=== PATIENT | female | born 1940 | race Caucasian/White ===

== ENCOUNTER → 2017-09-09 15:10 | Outpatient (CLI) | payer MEDICARE, OTHER, SELFPAY ==
--- NOTE | 2017-09-09 15:13 | RAD_ITS ---
STUDY: X-RAY - LEFT KNEE REASON FOR EXAM: Female, 76 years old. Left knee pain. TECHNIQUE: 3 view(s) of the knee. COMPARISON: None. FINDINGS: Normal visualized distal femur. Normal visualized proximal tibia and fibula. Normal proximal tibiofibular articulation. There is no acute fracture, dislocation or destructive osseous pathology. There is mild degenerative arthrosis of the medial femorotibial compartment. Normal lateral femorotibial compartment. There is mild degenerative arthrosis of the patellofemoral articulation. There is no demonstrated joint effusion. The soft tissue structures are unremarkable. RAD/Knee 3 Views IMPRESSION: Mild arthrosis of the left knee. Electronically Signed: Martir Solis DO at 18:52 EST Tel [phone], Service support ,
== END ==
PROVIDERS: Family Provider Family Medicine; PCP Family Medicine; Visit Provider Family Medicine
DX: M79.605 Pain in left leg (principal)
CPT/HCPCS: 73562

== ENCOUNTER → 2017-09-17 12:19 | Outpatient (CLI) | payer MEDICARE, OTHER, SELFPAY ==
--- NOTE | 2017-09-17 12:36 | MRI_ITS ---
STUDY: MRI LUMBAR SPINE WITHOUT CONTRAST REASON FOR EXAM: Female, 76 years old. spinal stenosis TECHNIQUE: Standardized fat and water weighted pulse sequences were obtained in the sagittal and axial planes. COMPARISON: None FINDINGS: Normal lumbar lordosis. Normal conus medullaris that terminates at the L1/L2. There is multi-level degenerative disc disease with multilevel disc desiccation and disc space narrowing. Evaluation of the individual levels is as follows. T12-L1: Sagittal only. There is a mild disc bulge without significant central canal or foraminal stenosis. L1-2: There is a moderate disc space narrowing and endplate spondylosis. There is a mild disc bulge asymmetric to the left with moderate left foraminal stenosis. There is bilateral facet hypertrophy with mild central canal stenosis. There is no significant right foraminal stenosis. L2-3: There is a moderate space narrowing and endplate spondylosis. There is a moderate disc bulge and facet hypertrophy with mild central canal stenosis. There is mild bilateral foraminal stenosis. L3-4: There is moderate disc space narrowing and endplate spondylosis. There is a moderate disc osteophyte complex asymmetric to the right with moderate right foraminal stenosis. There is facet hypertrophy without significant central canal or left foraminal stenosis. L4-5: There is moderate disc space narrowing and endplate spondylosis. There is a moderate disc osteophyte complex and facet arthropathy with mild central canal stenosis. There is moderate bilateral foraminal stenosis. L5-S1: There is moderate disc space narrowing and endplate spondylosis with Modic type changes. There is a moderate disc bulge with central inferiorly directed extrusion with mild central canal stenosis. There is severe bilateral foraminal stenosis. There is mild bilateral facet arthropathy. Normal visualized sacral ala. Normal visualized paraspinous soft tissue structures. MRI/Spine Lumbar (Routine) IMPRESSION: L1/L2: Moderate left foraminal stenosis. L3/L4: Moderate right foraminal. L4/L5: Moderate bilateral foraminal stenosis. L5/S1: Central extrusion with mild central canal stenosis. Severe bilateral foraminal stenosis. Electronically Signed: Juan Perez MD at 13:18 EST Tel , Service support ,
== END ==
PROVIDERS: Family Provider Family Medicine; PCP Family Medicine; Visit Provider Family Medicine
DX: M48.00 Spinal stenosis, site unspecified (principal)
CPT/HCPCS: 72148

== ENCOUNTER → 2017-12-30 10:22 | Outpatient (CLI) | payer MEDICARE, OTHER, SELFPAY ==
--- NOTE | 2017-12-30 10:27 | RAD_ITS ---
STUDY: X-RAY - LUMBAR SPINE REASON FOR EXAM: Female, 77 years old. Low back pain TECHNIQUE: 4 view(s) of the lumbar spine were obtained with flexion and extension. COMPARISON: 06/24/2017 FINDINGS: Patient has developed mild dextroconvex scoliosis of the thoracolumbar spine. Normal lordosis and alignment. No compression fractures or acute abnormalities. Moderate to severe multilevel degenerative disc disease similar to prior exam. Normal range of motion with no subluxations. There is atherosclerotic calcification of the abdominal aorta without a demonstrated aneurysm. RAD/L/S Spine Min 4 Views IMPRESSION: Multilevel degenerative disc disease. Mild scoliosis has developed since previous exam. No acute abnormality. Electronically Signed: Lawrence Coffey MD at 17:17 EDT , Service support ,
== END ==
PROVIDERS: Family Provider Family Medicine; PCP Family Medicine; Visit Provider Orthopaedic Surgery
DX: M54.9 Dorsalgia, unspecified (principal)
CPT/HCPCS: 72110

== ENCOUNTER → 2018-05-22 11:24 | Outpatient (CLI) | payer MEDICARE, OTHER, SELFPAY ==
[2018-05-22 14:03] LABS: Absolute Lymphocyte Count 1.12 X10^3/ul (0.83-4.51); Absolute Neutrophil Count 3.5 X10^3/uL (2.0-7.7); Basophil# 0.02 X10^3/uL; Basophil% 0.3 % (0-1); Eosinophils% 11.6 % (0-5); Hematocrit 39.2 % (37-47); Hemoglobin 12.5 g/dl (12.0-15.0); Lymphocyte # 1.12 X10^3/ul (4.0); Lymphocyte % 18.5 % (19-41); Mean Corp Hgb Conc 31.9 g/gl (32-36); Mean Corpuscular Hgb 29.2 pg (27.0-32.0); Mean Corpuscular Volume 91.6 fL (81-99); Mean Platelet Vol. 10.3 fl (6.2-12.0); Monocyte% 11.6 % (0-10); Neutrophil # 3.49 X10^3/uL (2.7-7.7); Neutrophil % 57.8 % (47-70); Platelet Count 373 K/mm3 (150-450); RBC Distribution Width CV 14.2 % (11.6-14.6); RBC Distribution Width SD 46.4 fl (35.1-43.9); Red Blood Count 4.28 M/mm3 (4.2-5.4)
[2018-05-22 14:08] LABS: POSITIVE COUNT NO; POSITIVE DIFFERENTIAL NO; POSITIVE MORPHOLOGY NO
[2018-05-22 14:32] LABS: ALB/GLOB Ratio 0.8 RATIO (0.9-2.4); AST(SGOT) 17 U/L (15-37); Alanine Aminotransfer ALT/SGPT 27 U/L (13-56); Albumin, Serum 3.7 g/dL (3.2-5.0); Alkaline Phosphatase 95 U/L (45-117); Anion Gap 9 (5-15); BUN 8 mg/dL (7-18); BUN/Creat Ratio 10.1 RATIO (10-20); Calcium,Total 9.3 mg/dL (8.5-10.1); Chloride 103 mmol/L (98-107); Creatinine, Serum 0.79 mg/dL (0.55-1.02); EST Glomerular Filtration Rate 75 mL/min (>60); Est Glom Filt Rate - Afr Amer 90 mL/min (>60); Globulin 4.7 g/dL (2.2-4.2); Glucose 78 mg/dL (74-106); Potassium 4.1 mmol/L (3.5-5.1); Protein, Total 8.4 g/dL (6.4-8.2); Sodium Level 139 mmol/L (136-145); Thyroid Stim Hormone (TSH) 0.67 uIU/mL (0.358-3.74)
== END ==
PROVIDERS: Family Provider Family Medicine; PCP Family Medicine; Visit Provider Family Medicine
DX: R53.81 Other malaise (principal)
CPT/HCPCS: 36415; 80053; 84443; 85025

== ENCOUNTER 2018-11-10 10:30 | Outpatient (RCR) | payer MEDICARE, OTHER, SELFPAY ==
--- NOTE | 2018-09-29 12:48 | HP.PTEVAL_ITS ---
Patient's Visit Information JUANITA CHAN is a 77 year old F referred to Physical Therapy by SAMANTHA ALBRECHT with a diagnosis of Spinal stenosis s/p foraminotomy.. Date of Evaluation: 09/29/18 Physical Therapist: Misael Mccullough, DPT, OCS, CSCS - Visit Plan Frequency: 1x/Week Duration: 4-6 Weeks Plan: weekly x 4-6(pt choice) for progression of HEP...next session review old exercises patient will bring in and add hip strength, then core strength adn shoulder ROM and postural strength to tolerance. Pt motivated to complete ex I at home as able vs in clinic therapy. - Subjective Findings: Due to LBP and leg pain and hard to stand, had Low back surgery. She was not able to stadn long enough to do ADLS. Lumbar foraminotomies 3 weeks ago. has nt' done any exercises in 6 months. Since surgery, pain in L leg is gone. Still has some LBP and hip B. Pain is 7/10 mostly constant. Walkign makes it worse. legs feel very weak. No numbness or tingling lately. No ex and no brace. Every day gets better. Walks long driveway to mail box daily and it was hard to get back up driveway at first but better lately. Sleeping OK most nights which is normal for her over the last year or so. Basic ADLs are OK for dressing adn cooking, cleaning is still difficult, hard to sweep living room without a break. Fatiuges easily. Employed. Hobbies include remodilling house and gardening. Not doing those currently. Enjoys shopping with sisters when healthy . Did a little last week. All this started over a year ago on a shopping trip. Therapy helped at the time but didn't take the pain away. - Pain LBP Pain Intensity (Out of 10): 7 Pain Intensity Range: 5, 9 - Objective Walks I slightly hunched over forward. Transfers I slowly. Steps are reciprocala nd safe with one rail, L leg slightly weaker vs. R. Incision is posterior adn dry, healed well and no signs of excessive redness, heat or swelling. mild scar tissue on top part of incision. reflexes LE 2/3 patella adn achilles. sensation LE WNL to gross light touch. strength LE symmetircal and ankles 4- adn knees 4 adn hips 3+ abductiona dn extension, 4- flexion. piriformis and quads mod tight B, HS normal.Gastroc mod tight. - Goals Goal 1:: Pt feel 75% back to normal activitiy Goal Time Frame: 4-6 Weeks Goal 2:: Pt I in appropriate HEP to minimize future problems Goal Time Frame: 4-6 Weeks Goal 3:: Pt show 4/5 hip abduction, core adn extensor strength to walk further and complete sweeping without needing a break. Goal Time Frame: 4-6 Weeks Goal 4:: <25% disability on LB oswestry Goal Time Frame: 4-6 Weeks - Rehabilitation Potential Physical Therapy Diagnosis: Spinal stenosis Rehabilitation Potential: Fair - Anticipated Interventions Patient/Client Instruction: Educate patient on: Condition, Plan of Care For the Purpose of:: To decrease pain, To increase ROM, To improve nutrient delivery to tissue, To increase tolerance to activity/condition/position Therapeutic Exercise to Include: Strength training, Flexibilty training, Gait and locomotor training, Passive ROM, Active ROM, Dynamic Lumbar Stabilization For the Purpose of:: To decrease pain, To increase ROM, To increase tolerance to activity/condition/position, To improve ability of physical actions for home/community/work/leisure Thank you for the opportunity to evaluate your patient. For Medicare and Medicare HMO plans, please review the plan of care and approve it. It will need to be FAXED BACK to us at [phone] for Medicare purposes. For Medicare only, by signing this I certify the plan of care. Please let me know if there are questions or concerns regarding this plan of care. Physician Signature: Date:
--- NOTE | 2018-10-20 12:29 | HP.PTREVAL ---
SAMANTHA ALBRECHT, It has been my pleasure to treat JUANITA CHAN over the last 4 visits for Spinal stenosis s/p foraminotomy.. Please see the progress note below for an update on the physical therapy plan of care! Subjective: Doing pretty good. Seeing improvement. Worked legs a bit much yesterday with workout and then picked up twigs. Feels pooped after workout. Has to split them into different time frames. Pain has not been bad. 3 aspirins in the last week due to pain. Sleep is OK. Hasn't walked much due to weather but will do that. Pain has been outside B hips at 4/10 to walk. To doctor in a year. Needs more time to do ex as she sees improvement every day. L ankle cans til lfeel tightish numby and has for the last year. Objective/Function: Good ROM L?S , slightly limited ext and flexion causes some lateral hip pain B. Tightness noticeable in B ITB. Incisions healed wlel with only slight scar tissue. No signs of redness heat or swelling. Pt walking well and moving well today with transfers. OVERALL DOING WELL ADN WILLC OTNINUE VIA HEP AND CALL IF PROBLEMS Plan Plan: F/U 3 WEEKS TO CHECK GOALS, OSWESTRY, ENSURE PROGRESS WITH ITB AND PROGRESS [id number], STACY E PLANKS) IF NEEDED ADN LIKELY D/C. PT TO CALL [RIOR IF WORSENS. Goals Goal 1:: Pt feel 75% back to normal activitiy Goal Time Frame: 4-6 Weeks Goal Progress: Goal Met Goal 2:: Pt I in appropriate HEP to minimize future problems Goal Time Frame: 4-6 Weeks Goal Progress: Goal Met Goal 3:: Pt show 4/5 hip abduction, core adn extensor strength to walk further and complete sweeping without needing a break. Goal Time Frame: 4-6 Weeks Goal 4:: <25% disability on LB oswestry Goal Time Frame: 4-6 Weeks Anticipated Interventions Patient/Client Instruction: Educate patient on: Condition, Plan of Care For the Purpose of:: To decrease pain, To increase ROM, To improve nutrient delivery to tissue, To increase tolerance to activity/condition/position Therapeutic Exercise to Include: Strength training, Flexibilty training, Gait and locomotor training, Passive ROM, Active ROM, Dynamic Lumbar Stabilization For the Purpose of:: To decrease pain, To increase ROM, To increase tolerance to activity/condition/position, To improve ability of physical actions for home/community/work/leisure Please do not hesitate to contact me at [phone] by phone or if you have questions or concerns regarding this new plan of care! Sincerely, Misael Mccullough, KUMART, OCS, CSCS
--- NOTE | 2019-01-28 16:18 | HP.PT.NRP ---
HP - Discharge Summary (1) - Patient Information JUANITA CHAN was seen in my office for initial evaluation on 09/29/18. The following Plan of Care was established for this patient: Initial Frequency: 1x/Week Initial Duration: 4-6 Weeks - Anticipated Interventions Patient/Client Instruction: Educate patient on: Condition, Plan of Care For the Purpose of:: To decrease pain, To increase ROM, To improve nutrient delivery to tissue, To increase tolerance to activity/condition/position Therapeutic Exercise to Include: Strength training, Flexibilty training, Gait and locomotor training, Passive ROM, Active ROM, Dynamic Lumbar Stabilization For the Purpose of:: To decrease pain, To increase ROM, To increase tolerance to activity/condition/position, To improve ability of physical actions for home/community/work/leisure This patient was last seen in our office 11/10/18. Pertinent comments regarding their Physical therapy will appear below: Pt seen for 5 visits of POC and was doing well with a minor setback at the end. She wished to continue at home and was to call if she did nto recover quickly. At this point it has been over almost two months and I will discotninue due to nonattendance. At this point I will be discontinuing this patient from physical therapy. I would be happy to see this patient again in the future if found appropriate by the physician. Thank you! Misael Mccullough, DPT, OCS, CSCS
== END 2018-11-10 19:00 | disposition home or self-care (01) ==
LOC: PT 10:30
PROVIDERS: Family Provider Family Medicine; PCP Family Medicine
DX: M48.061 Spinal stenosis, lumbar region without neurogenic claudication (principal); M54.17 Radiculopathy, lumbosacral region
CPT/HCPCS: 97110; 97162; 97530

== ENCOUNTER → 2019-05-12 14:35 | Outpatient (CLI) | payer MEDICARE, OTHER, SELFPAY ==
[2019-05-12 15:46] LABS: Absolute Lymphocyte Count 1.79 X10^3/uL (0.83-4.51); Absolute Neutrophil Count 4.2 X10^3/uL (2.0-7.7); Basophil# 0.03 X10^3/uL; Basophil% 0.4 % (0-1); Eosinophils% 2.8 % (0-5); Hematocrit 41.6 % (37-47); Lymphocyte # 1.79 X10^3/ul (4.0); Lymphocyte % 25.4 % (19-41); Mean Corp Hgb Conc 31.3 g/dL (32-36); Mean Corpuscular Hgb 28.9 pg (27.0-32.0); Mean Corpuscular Volume 92.4 fL (81-99); Mean Platelet Vol. 10.3 fl (6.2-12.0); Monocyte# 0.79 X10^3/uL; Monocyte% 11.2 % (0-10); NRBC Flagged by Analyzer 0 % (0-5); Neutrophil % 59.8 % (47-70); Platelet Count 301 K/mm3 (150-450); RBC Distribution Width CV 14.1 % (11.6-14.6)
[2019-05-12 15:58] LABS: Erythrocyte Sedimentation Rate 23 mm/hr (0-30)
[2019-05-12 16:15] LABS: CRP < 2.90 mg/L (0.0-3.0); Rheumatoid Factor < 10.0 IU/mL (<15); Uric Acid 3.4 mg/dL (2.6-6.0)
[2019-05-14 13:11] LABS: ANTINUCLEAR ANTIBODIES DIRECT Negative (Negative)
== END ==
PROVIDERS: Family Provider Family Medicine; PCP Family Medicine; Visit Provider Family Medicine
DX: M25.50 Pain in unspecified joint (principal)
CPT/HCPCS: 36415; 84550; 85025; 85652; 86038; 86140; 86431

== ENCOUNTER → 2020-02-17 14:38 | Outpatient (CLI) | payer MEDICARE, OTHER, SELFPAY ==
--- NOTE | 2020-02-17 14:43 | CT_ITS ---
STUDY: CT FACIAL BONES WITHOUT CONTRAST REASON FOR EXAM: Female, 79 years old. NASAL DRIP X 1 YEAR, KAYLEIGH JACKIE RADIATION DOSAGE (If Supplied By Facility): CTDIvol = ( 33.06 ) mGy, DLP = ( 854.51 ) mGycm TECHNIQUE: The patient was scanned in a multi detector CT scanner. Sagittal and coronal images were reconstructed. Individualized dose optimization techniques were used for this CT. COMPARISON: None. FINDINGS: Normal soft tissue structures. Normal orbital ramos and orbital contents. Normal nasal bones and anterior nasal spine. Normal facial bones. There is no demonstrated fracture. Normal visualized paranasal sinuses. CT/Sinus/Facial Bone IMPRESSION: Normal unenhanced CT of the facial bones. Electronically Signed: Cristhian Chen, at 15:02 EDT Tel , Service support ,
== END ==
PROVIDERS: PCP Family Medicine; Referring Provider Otolaryngology; Visit Provider Otolaryngology
DX: J32.9 Chronic sinusitis, unspecified (principal)
CPT/HCPCS: 70486

== ENCOUNTER 2021-06-06 17:18 | Emergency (ER) | payer MEDICARE, OTHER, SELFPAY ==
[2021-06-06 17:20] VITALS: BP 180/86; PULSE 92; RESP 18; TEMP 36.1; O2SAT 98; BMI 22.9
--- NOTE | 2021-06-06 17:28 | NURSING ---
NO OLD EKGS
--- NOTE | 2021-06-06 17:37 | CT_ITS ---
HISTORY: paresthesias TECHNIQUE: Multiple axial images were obtained of the brain without intravenous contrast. A radiation dose optimization technique was used for this scan. IV Contrast dosage and agent: None. COMPARISON: None FINDINGS: # of images incl. paperwork: [id number] PARANASAL SINUSES AND MASTOID AIR CELLS: Clear. INTRACRANIAL HEMORRHAGE: None. BRAIN PARENCHYMA: No CT evidence of stroke. No intracranial masses. There is preservation of the bunch/white matter interface. Posterior fossa structures are unremarkable. There is hypoattenuation of the periventricular white matter. Chronic involutional changes are noted. CSF SPACES: Appropriate for age. There is no hydrocephalus. MASS EFFECT: None. CALVARIUM: No acute fracture. CT/Brain/Head without Contrast IMPRESSION: Chronic involutional and white matter changes. No acute intracranial process. Individualized dose optimization techniques were used for this CT. at 1904 Reported and signed by: Slava Delatorre MD Electronically Signed: Slava Delatorre MD at 19:03 EDT Tel , Service support ,
--- NOTE | 2021-06-06 17:37 | EKG12_ITS ---
Test Reason : Blood Pressure : / mmHG Vent. Rate : 077 BPM Atrial Rate : 077 BPM P-R Int : 146 ms QRS Dur : 092 ms QT Int : 400 ms P-R-T Axes : 056 003 054 degrees QTc Int : 452 ms Normal sinus rhythm Nonspecific ST and T wave abnormality Abnormal ECG Confirmed by MARY ORTIZ, NABILA ([id number]), associate entertainment editor KOURTNEY JAMES ([id number]) on 06/08/2021 9:33:42 AM Referred By: ANAHI Confirmed By:NABILA HERNANDEZ MD
[2021-06-06 17:51] VITALS: BMI 22.9
[2021-06-06 17:57] VITALS: BP 180/96; PULSE 92; RESP 18; TEMP 36.1; O2SAT 98
[2021-06-06 17:59] VITALS: BP 124/93; PULSE 77; RESP 14; O2SAT 97
[2021-06-06 18:05] LABS: Bacteria 0 SEEN /hpf (None Seen); Mucous, Urine 0 SEEN /hpf (<or=2+); Red Blood Cells-Urine 0 SEEN /hpf (0-5)
--- NOTE | 2021-06-06 18:05 | RAD_ITS ---
STUDY: X-RAY CHEST REASON FOR EXAM: Female, 80 years old. Cough TECHNIQUE: Frontal view COMPARISON: None. FINDINGS: The lungs are clear and expanded. There is no demonstrated pleural abnormality. Normal size heart. Normal mediastinum and karuna. Normal visualized pulmonary arteries. Normal visualized aortic arch and descending thoracic aorta. Normal visualized thoracic spine. Normal visualized ribs, clavicles, and shoulders. There is no demonstrated abnormality of the visualized soft tissue structures of the upper abdomen. RAD/Chest 1 View (Portable) IMPRESSION: Normal x-ray examination of the chest. Electronically Signed: Uzair Rosen DO at 20:36 EDT Tel [phone], Service support ,
[2021-06-06 18:10] LABS: Absolute Lymphocyte Count 2.11 X10^3/uL (0.83-4.51); Basophil# 0.03 X10^3/uL; Basophil% 0.4 % (0-1); Eosinophil# 0.23 X10^3/uL; Eosinophils% 3.2 % (0-5); Hematocrit 39.6 % (37-47); Hemoglobin 12.6 g/dL (12.0-15.0); Lymphocyte # 2.11 X10^3/ul (0.83-4.51); Lymphocyte % 29.6 % (19-41); Mean Corp Hgb Conc 31.8 g/dL (32-36); Mean Corpuscular Hgb 28.8 pg (27.0-32.0); Mean Corpuscular Volume 90.6 fL (81-99); Mean Platelet Vol. 9.7 fl (6.2-12.0); Monocyte# 0.71 X10^3/uL; NRBC Flagged by Analyzer 0 % (0-5); Neutrophil # 4.02 X10^3/uL (2.7-7.7); Neutrophil % 56.4 % (47-70); Platelet Count 341 K/mm3 (150-450); RBC Distribution Width CV 14.3 % (11.6-14.6); RBC Distribution Width SD 47.9 fl (35.1-43.9); Red Blood Count 4.37 M/mm3 (4.2-5.4); White Blood Count 7.1 K/mm3 (4.4-11.0)
[2021-06-06 18:20] LABS: Color, Urine Yellow (Yellow); Glucose, Dipstick Normal (Normal); Ketone-Dipstick Negative (Negative); Leukocyte Esterase-Dipstick 25 /ul (Negative); Nitrite-Dipstick Negative (Negative); Occult Blood-Urine Negative /ul (Negative); Protein-Dipstick Negative (Negative); Urine Bilirubin Dipstick Negative (Negative); Urine Clarity Clear (Clear); Urine Urobilinogen Normal (Normal)
[2021-06-06 18:23] LABS: ALB/GLOB Ratio 0.9 RATIO (0.9-2.4); AST(SGOT) 15 U/L (15-37); Alanine Aminotransfer ALT/SGPT 23 U/L (13-56); Albumin, Serum 3.6 g/dL (3.2-5.0); Alkaline Phosphatase 92 U/L (45-117); Anion Gap 5 (5-15); BUN 18 mg/dL (7-18); BUN/Creat Ratio 18.9 RATIO (10-20); Calcium,Total 9.1 mg/dL (8.5-10.1); Chloride 104 mmol/L (98-107); Creatinine, Serum 0.95 mg/dL (0.55-1.02); EST Glomerular Filtration Rate 60 mL/min (>60); Est Glom Filt Rate - Afr Amer 73 mL/min (>60); Globulin 4.1 g/dL (2.2-4.2); Glucose 108 mg/dL (74-106); Magnesium 2.3 mg/dL (1.6-2.6); Potassium 4.2 mmol/L (3.5-5.1); Protein, Total 7.7 g/dL (6.4-8.2); Sodium Level 139 mmol/L (136-145); Troponin-I HS 9 pg/mL (3.0-54.0)
[2021-06-06 18:30] LABS: Squamous Epithelial Cells - UA 0-5 SEEN /hpf (5-10); White Blood Cells 0-5 SEEN /hpf (0-5)
--- NOTE | 2021-06-06 19:02 | ED.VIS.STROK ---
HPI History of Present Illness Chief Complaint: Neuro S/Sx Narrative Narrative: 80-year-old female presenting with numbness and tingling to the left side of her lip which started a couple of days ago. She now reports that she has had some tingling into the first 3 digits of her left hand and fingers. It started today. She also notes that she had some numbness around her left eye. She has not had a facial droop. She has not had slurred speech. She denies headache. She states that intermittently she feels lightheaded and has some blurry vision. She denies chest pain, shortness of breath. Patient has no history of head injury. She has no history of stroke and states she has no risk factors. She does report that she has had a cough for a couple of weeks and some rhinorrhea. She denies any fever. She has not been tested for COVID-19. PFSH PFSH Home Medications magnesium 200 mg tablet PO 11/19/17 [History Last Taken Unknown] vitamin B complex 1 tab PO QDAY 11/19/17 [History Last Taken Unknown] gabapentin 300 mg capsule 300 mg PO TID 12/30/17 [History Last Taken Unknown] Allergy/AdvReac Type Severity Reaction Status Date / Time meperidine [From Demerol] Allergy Unknown Verified 06/06/21 17:23 Family History Mother Cancer Father Cancer Sister Cancer Surgical History H/O: hysterectomy Social History Smoking Status: Current every day smoker tobacco type: cigarettes ROS ROS ED Constitutional Constitutional ED: Denies chills or fever(s) Eyes Eyes: Reports blurry vision bilateral ENT ENT ED: Reports rhinorrhea; Denies sore throat Cardiovascular Cardiovascular: Denies chest pain or palpitations Respiratory/Chest Respiratory/Chest: Reports cough; Denies dyspnea, dyspnea on exertion or sputum Gastrointestinal Gastrointestinal: Denies abdominal pain, nausea or vomiting Genitourinary Genitourinary ED: Denies dysuria or hematuria Musculoskeletal Musculoskeletal: Denies arthralgias, myalgias or neck pain Integumentary Denies Abrasions or rash Neurologic Neurologic: Reports paresthesias LUE and other Psychiatric Psychiatric: Denies anxiety or depression Endocrine Endocrinology: Denies polydipsia or polyuria EXAM Physical Exam Const Vital Signs: 06/06/21 17:20 06/06/21 17:57 06/06/21 17:59 Temperature 96.9 F L 96.9 F L Temperature Source Temporal Oral Pulse Rate 92 92 77 Pulse Rate [Lying] Pulse Rate [Sitting] Pulse Rate [Standing] Respiratory Rate 18 18 14 Blood Pressure 180/86 H 180/96 H 124/93 H Blood Pressure [Lying] Blood Pressure [Sitting] Blood Pressure [Standing] Blood Pressure Mean 117 124 103 Blood Pressure Mean [Lying] Blood Pressure Mean [Sitting] Blood Pressure Mean [Standing] Pulse Ox 98 98 97 Oxygen Delivery Method Room Air Room Air Room Air 06/06/21 19:11 06/06/21 20:01 06/06/21 20:06 Temperature Temperature Source Pulse Rate 79 81 Pulse Rate [Lying] 81 Pulse Rate [Sitting] 85 Pulse Rate [Standing] 97 Respiratory Rate 18 18 Blood Pressure 131/74 H 159/60 H Blood Pressure [Lying] 159/60 H Blood Pressure [Sitting] 160/86 H Blood Pressure [Standing] 149/84 H Blood Pressure Mean 93 93 Blood Pressure Mean [Lying] 93 Blood Pressure Mean [Sitting] 110 Blood Pressure Mean [Standing] 105 Pulse Ox 96 96 Oxygen Delivery Method Room Air Room Air Positive well nourished General Appearance ED: NAD HEENT Reports moist mucous membranes atraumatic Eyes PERRL and EOMs intact bilaterally Chest Wall inspection of chest normal and palpation of chest normal Resp normal respiratory effort Cardio Rate: regular rate Rhythm: regular rhythm GI normal to inspection, nondistended, normoactive bowel sounds Neuro oriented x3, CN's II-XII intact bilaterally and no sensory deficits noted Sensorium / Orientation: alert Speech: speech normal Motor Exam: strength 5/5 throughout Psych mental status grossly normal Skin General Skin Exam: Negative for jaundice Rashes: No rashes noted STROKE Vital Signs/Narrative: Vital Signs Pulse Pulse Pulse Pulse Resp BP BP 06/06/21 20:06 81 18 159/60 H 06/06/21 20:01 81 85 97 159/60 H 06/06/21 19:11 79 18 131/74 H BP BP Pulse Ox 06/06/21 20:06 96 06/06/21 20:01 160/86 H 149/84 H 06/06/21 19:11 96 MDM MDM MDM Narrative Medical decision making narrative: Patient presenting with paresthesias in the left side of her face around her left eye and around her left mouth as well as paresthesias into the first 3 digits of the left hand. Patient did just have a Covid vaccination last week and believes she may have some numbness and tingling in her arm secondary to this but she cannot explain why she has the tingling in her face. On examination she has equal symmetric sensation of her face and her hands. Her motor strength is 5/5. Her NIH stroke scale score is 0. She has no neurologic deficits at all that I can find. Given concern for her symptoms I did obtain lab work and imaging for possible stroke/TIA. Patient's blood work is all normal. Her urinalysis was negative for infection. EKG on my interpretation shows a normal sinus rhythm with a ventricular rate of 77 bpm without sign of ischemic change. Chest x-ray on my interpretation shows no acute cardiopulmonary process and the radiologist does agree. CT of the brain is interpreted by the radiologist shows no acute intracranial process. Not sure how to explain the patient's symptoms in her face and the first 3 digits of her left hand that she has a normal neurologic exam and there is no objective findings other than what she describes as numbness/tingling in these areas but with equal symmetric sensation and motor strength. I do not believe this represents a stroke. On reevaluation the patient has had no change in her symptoms and her exam is the same. She states that this point she wants to go home I believe is reasonable given a negative work-up and no abnormal findings on examination. Patient is counseled to follow-up with her PCP on outpatient basis. She is given return precautions. Impression: 1. Paresthesias Lab Data Labs: Laboratory Results - last 24 hr 06/06/21 06/06/21 06/06/21 17:50 17:50 18:00 WBC 7.1 RBC 4.37 Hgb 12.6 Hct 39.6 MCV 90.6 MCH 28.8 MCHC 31.8 L RDW Std Deviation 47.9 H RDW Coeff of Shay 14.3 Plt Count 341 MPV 9.7 Immature Gran % (Auto) 0.400 Neut % (Auto) 56.4 Lymph % (Auto) 29.6 [place] % (Auto) 10.0 Eos % (Auto) 3.2 Baso % (Auto) 0.4 Absolute Neuts (auto) 4.0 Absolute Lymphs (auto) 2.11 Nucleated RBC % 0 Sodium 139 Potassium 4.2 Chloride 104 Carbon Dioxide 30.0 Anion Gap 5 BUN 18 Creatinine 0.95 Estim Creat Clear Calc 46.70 Est GFR (MDRD) Af Amer 73 Est GFR (MDRD) Non-Af 60 BUN/Creatinine Ratio 18.9 Glucose 108 H Calcium 9.1 Magnesium 2.3 Total Bilirubin 0.20 AST 15 ALT 23 Alkaline Phosphatase 92 Troponin I High Sens 9 Total Protein 7.7 Albumin 3.6 Globulin 4.1 Albumin/Globulin Ratio 0.9 Urine Color Yellow Urine Clarity Clear Urine pH 7.0 Ur Specific Spencer 1.010 Urine Protein Negative Urine Glucose (UA) Normal Urine Ketones Negative Urine Occult Blood Negative Urine Nitrite Negative Urine Bilirubin Negative Urine Urobilinogen Normal Ur Leukocyte Esterase 25 H Urine RBC 0 SEEN Urine WBC 0-5 SEEN Ur Squamous Epith Cells 0-5 SEEN Urine Bacteria 0 SEEN Urine Mucus 0 SEEN Radiography Diagnostic Testing: Clinical Impression(s) from Imaging Studies Brain CT 06/06/21 17:37 IMPRESSION: Chronic involutional and white matter changes. No acute intracranial process. Individualized dose optimization techniques were used for this CT. at 1904 Reported and signed by: Slava Delatorre MD Electronically Signed: Slava Delatorre MD at 19:03 EDT Tel , Service support , Chest X-Ray 06/06/21 18:05 IMPRESSION: Normal x-ray examination of the chest. Electronically Signed: Uzair Rosen DO at 20:36 EDT Tel [phone], Service support , Discharge Plan Triage Chief Complaint: Neuro S/Sx ED Provider: Jose Willingham Dx/Rx/DC Orders Instructions: ED Dizziness, Uncertain Cause, ED Paraesthesias Prescriptions: No Action vitamin B complex [B Complex 1] tablet 1 tab PO QDAY RF: 0 magnesium 200 mg tablet PO RF: 0 gabapentin 300 mg capsule 300 mg PO TID RF: 0 Primary Care Provider: Kiara Geronimo Referrals: Kiara Geronimo MD [Primary Care Provider] - Disposition Disposition: Home, Self Care Discharge Date/Time: 06/06/21 20:53
[2021-06-06 19:11] VITALS: BP 131/74; PULSE 79; RESP 18; O2SAT 96
[2021-06-06 20:01] VITALS: BP 149/84; BP 159/60; BP 160/86; PULSE 81; PULSE 85; PULSE 97
[2021-06-06 20:06] VITALS: BP 159/60; PULSE 81; RESP 18; O2SAT 96
== END 2021-06-06 20:53 | disposition home or self-care (01) ==
PROVIDERS: Emergency Provider Student in an Organized Health Care Education/Training Program; PCP Family Medicine
DX: R20.2 Paresthesia of skin (principal); F17.210 Nicotine dependence, cigarettes, uncomplicated; R05.9 Cough, unspecified; H53.8 Other visual disturbances; J34.89 Other specified disorders of nose and nasal sinuses
CPT/HCPCS: 70450; 71045; 80053; 81001; 83735; 84484; 85025; 93005; 99285; A4216

== ENCOUNTER → 2022-02-08 | Outpatient (CLI) | payer MEDICARE, OTHER, SELFPAY ==
--- NOTE | 2022-02-08 12:38 | RAD_ITS ---
STUDY: X-RAY - LUMBAR SPINE REASON FOR EXAM: Female, 81 years old. spinal stenosis TECHNIQUE: 5 view(s) of the lumbar spine were obtained. COMPARISON: 12/30/2017 FINDINGS: Normal lumbar lordosis. Mild levoscoliosis centered at L3/L4. There is a normal alignment of the vertebrae. There is multilevel endplate spondylosis of the lumbar vertebrae. There is multi-level degenerative disc disease with multi-level disc space narrowing. Facet hypertrophy in the lumbar spine. The soft tissue structures are unremarkable. RAD/L/S Spine Min 4 Views IMPRESSION: Mild levoscoliosis with moderate diffuse degenerative disc disease. MRI would be useful. Electronically Signed: Sha Wheeler MD at 17:08 EDT ,
--- NOTE | 2022-02-08 12:38 | RAD_ITS ---
STUDY: X-RAY - PELVIS AND BILATERAL HIPS REASON FOR EXAM: Female, 81 years old. spinal stenosis TECHNIQUE: AP view of the pelvis.? 2 views of the right hip, and 2 views of the left hip were obtained. COMPARISON: 06/24/2017 FINDINGS: There is a non-specific bowel gas pattern. Normal visualized soft tissue structures. Normal bilateral iliac wings, sacroiliac joints and visualized sacrum. Normal bilateral superior and inferior pubic rami. Normal pubic symphysis. Normal bilateral ischial tuberosities. Normal visualized right femoral head. Normal right acetabulum. Normal right hip joint. Normal visualized left femoral head. Normal left acetabulum. Normal left hip joint. RAD/Hips B/L min 2 views w/ Pelvis IMPRESSION: Normal x-ray examination of the pelvis and bilateral hips. Electronically Signed: Sha Wheeler MD at 17:08 EDT ,
== END | disposition home or self-care (01) ==
LOC: MTRAD 12:36
PROVIDERS: PCP Family Medicine; Referring Provider Family Medicine; Visit Provider Family Medicine
DX: M48.062 Spinal stenosis, lumbar region with neurogenic claudication (principal)
CPT/HCPCS: 72110; 73521

== ENCOUNTER → 2022-02-27 | Outpatient (CLI) | payer MEDICARE, OTHER, SELFPAY ==
--- NOTE | 2022-02-27 10:52 | MRI_ITS ---
STUDY: MR Spine Lumbar W/O Contrast 02/27/2022 9:11 PM REASON FOR EXAM: Female, 81 years old. Back pain evaluation for spinal stenosis -- Technologist Notes pain low back and bilat legs, prev lumbar surgery 3 years ago TECHNIQUE: MR Spine Lumbar W/O Contrast Standardized fat and water weighted pulse sequences were obtained. COMPARISON: Sep 17 2017 1:22pm FINDINGS: T12-L1: Loss of intervertebral disc height. There is endplate spondylosis of the vertebral body. Normal central canal and intervertebral neuroforamina. There is bilateral facet arthropathy. There is bilateral ligamentum flavum thickening. Posterior disc bulge. Normal lumbar lordosis. There is no substantial scoliosis. Normal conus medullaris that terminates at the L1. L1-2: Loss of intervertebral disc height. There is endplate spondylosis of the vertebral body. Narrowing of the bilateral intervertebral neuroforamina. There is bilateral facet arthropathy. There is bilateral ligamentum flavum thickening. Discogenic endplate changes. L2-3: Loss of intervertebral disc height. There is endplate spondylosis of the vertebral body. No narrowing of the intervertebral neuroforamina. There is bilateral facet arthropathy. There is bilateral ligamentum flavum thickening. Discogenic endplate changes. L3-4: Loss of intervertebral disc height. There is endplate spondylosis of the vertebral body. Right narrowing of the intervertebral neuroforamina. There is bilateral facet arthropathy. There is bilateral ligamentum flavum thickening. Discogenic endplate changes. L4-5: Loss of intervertebral disc height. There is endplate spondylosis of the vertebral body. Narrowing of the bilateral intervertebral neuroforamina. There is bilateral facet arthropathy. There is bilateral ligamentum flavum thickening. Discogenic endplate changes. L5-S1: Loss of intervertebral disc height. There is endplate spondylosis of the vertebral body. Narrowing of the bilateral intervertebral neuroforamina. There is bilateral facet arthropathy. There is bilateral ligamentum flavum thickening. Central disc herniation. Discogenic endplate changes. Moderate spinal stenosis. Normal visualized sacral ala. Normal visualized paraspinous soft tissue structures. IMPRESSION: Normal enhanced and unenhanced MR examination of the lumbar spine. MRI/Spine Lumbar (Routine) IMPRESSION: L1/L2: Narrowing of the bilateral intervertebral neuroforamina. . L3/L4: Moderate right foraminal. L4/L5: Severe bilateral foraminal stenosis. L5/S1: Central extrusion with moderate central canal stenosis. Severe bilateral foraminal stenosis. Electronically Signed: Rajiv Davis MD at 21:18 EDT ,
== END | disposition home or self-care (01) ==
PROVIDERS: PCP Family Medicine; Referring Provider Family Medicine; Visit Provider Family Medicine
DX: M48.062 Spinal stenosis, lumbar region with neurogenic claudication (principal)
CPT/HCPCS: 72148

== ENCOUNTER 2022-11-18 16:50 | Inpatient (IN) | payer MEDICARE, OTHER, SELFPAY ==
[2022-11-18 16:51] VITALS: BP 134/63; PULSE 86; RESP 16; TEMP 37; O2SAT 98; BMI 22.7
[2022-11-18 18:07] LABS: Absolute Neutrophil Count 4.7 X10^3/uL (2.0-7.7); Basophil# 0.05 X10^3/uL; Basophil% 0.7 % (0-1); Eosinophil# 0.19 X10^3/uL; Eosinophils% 2.5 % (0-5); Hematocrit 23.5 % (37-47); Hemoglobin 6.5 g/dL (12.0-15.0); Lymphocyte % 24.8 % (19-41); Mean Corp Hgb Conc 27.7 g/dL (32-36); Mean Corpuscular Hgb 20.1 pg (27.0-32.0); Mean Corpuscular Volume 72.5 fL (81-99); Mean Platelet Vol. 10.5 fl (6.2-12.0); Monocyte# 0.81 X10^3/uL; Monocyte% 10.6 % (0-10); NRBC Flagged by Analyzer 0.3 % (0-5); Neutrophil # 4.69 X10^3/uL (2.7-7.7); POSITIVE COUNT YES; Platelet Count 365 K/mm3 (150-450); RBC Distribution Width CV 18.5 % (11.6-14.6); RBC Distribution Width SD 48.6 fl (35.1-43.9); Red Blood Count 3.24 M/mm3 (4.2-5.4); White Blood Count 7.7 K/mm3 (4.4-11.0)
[2022-11-18 18:34] LABS: Anion Gap 4 (5-15); BUN 16 mg/dL (7-18); BUN/Creat Ratio 23.6 RATIO (10-20); Calcium,Total 8.8 mg/dL (8.5-10.1); Chloride 108 mmol/L (98-107); Creatinine, Serum 0.68 mg/dL (0.55-1.02); EST Glomerular Filtration Rate 88 mL/min (>60); Est Glom Filt Rate - Afr Amer 107 mL/min (>60); Estimated Creatinine Clearance 42.91 ml/min; Glucose 100 mg/dL (74-106); Potassium 3.9 mmol/L (3.5-5.1); Sodium Level 138 mmol/L (136-145)
[2022-11-18 19:51] LABS: International Normalized Ratio 0.9; Prothrombin Time (Protime)PT. 12.2 SECONDS (11.7-14.9)
[2022-11-18 20:00] LABS: AST(SGOT) 17 U/L (15-37); Alanine Aminotransfer ALT/SGPT 19 U/L (13-56); Albumin, Serum 3.5 g/dL (3.2-5.0); Alkaline Phosphatase 94 U/L (45-117); Bilirubin, Direct 0.06 mg/dL (0.00-0.30); Globulin 4.3 g/dL (2.2-4.2); Protein, Total 7.8 g/dL (6.4-8.2)
--- NOTE | 2022-11-18 21:29 | PCM.HP.STD ---
HPI - General General Date of Admission: 11/18/22 Date of Service: 11/18/22 Chief Complaint: Abn Lab HPI Narrative JUANITA CHAN, is a 82 F who presented from her primary care physician's office to the emergency department at [facility] with abnormal lab values. Patient has been experiencing increased fatigue and shortness of breath over the last 2 weeks. She states really about 4 weeks ago she had upper respiratory tract infection and thought this was all related to that. But she has not improved so she went to her doctor today. At her primary care physician's office lab were drawn and she was noticed to be anemic and sent to the emergency department. The patient denies any abdominal pain, nausea, vomiting, diarrhea or constipation. She has had no melena or hematochezia. She has had no hematemesis. She has never had a colonoscopy. She does smoke approximately 1/2 pack cigarettes daily and has done so for a long time. She takes no blood thinners at home other than aspirin as needed for pain and denies any use of other NSAIDs on a regular basis. Vital signs on presentation demonstrated temperature of 98.6, blood pressure 134/63, heart rate 86, respiratory rate is 16 and oxygen saturations are 98% on room air. CBC shows normal white count with a hemoglobin of 6.9 and an MCV of 72.5. Platelet counts are normal. Coags are normal. Chemistry panel is unremarkable. I did asked the emergency department physician to get iron studies and retake count which I do not have the results of. Her total iron and saturation are both very low at 12 and 2.6% respectively. TIBC is elevated at 466. She does have an elevated reticulocyte count at 2.21. Ferritin is 4. Hemoccult was negative. [facility] Medical History (Updated 11/18/22 @ 22:[address] Nahed Rose, DO) DDD (degenerative disc disease), lumbar Spinal stenosis Tobacco abuse Home Medications magnesium 200 mg tablet 200 mg PO DAILY SUPPLEMENT 11/19/17 [History Last Taken 11/17/22] vitamin B complex (B Complex 1 tablet) 1 tab PO QDAY 11/19/17 [History Last Taken 11/17/22] aspirin 325 mg tablet 325 mg PO DAILY PRN Pain 03/20/22 [History Last Taken Unknown] brimonidine 0.2 %-timolol 0.5 % eye drops (Combigan) 1 drp EACH EYE BID . 11/18/22 [History Last Taken 11/18/22] cholecalciferol (vitamin D3) 25 mcg (1,000 unit) tablet (Vitamin D3) 25 mcg PO DAILY SUPPLEMENT 11/18/22 [History Last Taken 11/17/22] Allergy/AdvReac Type Severity Reaction Status Date / Time meperidine [From Demerol] Allergy Unknown Verified 11/18/22 16:52 Family History Mother Cancer Father Cancer Sister Cancer Surgical History H/O: hysterectomy Social History Smoking Status: Current every day smoker tobacco type: cigarettes ROS Constitutional Constitutional: Reports fatigue, malaise and weakness; Denies anorexia, change in weight, chills, fever(s), night sweats or other Eyes Eyes: Denies blurry vision, change in eye color, change in vision, discharge from eye(s), double vision, erythema, eye pain, loss of vision or other ENT HEENT: Denies abnormal hearing, dysphagia, ear pain, epistaxis, headache(s), hearing loss, nasal congestion, nasal discharge, post nasal drip, sinus pressure, sore throat or other Cardiovascular Cardiovascular: Reports dyspnea on exertion; Denies chest pain, claudication, edema, lightheadedness, orthopnea, palpitations, paroxysmal nocturnal dyspnea, rapid heart rate, syncope or other Respiratory/Chest Respiratory/Chest: Reports cough, dyspnea and shortness of breath with exertion; Denies excessive phlegm production, hemoptysis, productive cough, shortness of breath at rest, wheezing or other Gastrointestinal Gastrointestinal: Denies abdominal pain, coffee ground emesis, constipation, diarrhea, dyspepsia, hematemesis, hematochezia, loose stools, melena, nausea, vomiting or other Genitourinary Genitourinary: Denies burning urination, difficulty urinating, dysuria, hematuria, nocturia, urinary frequency, urinary hesitancy, urinary incontinence, urinary urgency or other Musculoskeletal Musculoskeletal: Reports back pain; Denies arthralgias, joint pain, joint stiffness, joint swelling, myalgias, neck pain or other Neurologic Neurologic: Denies abnormal gait, abnormal speech, confusion, disequilibrium, dizziness, focal weakness, headache(s), numbness, paresthesias, seizure-like activity, seizures, syncope, tingling, tremor(s) or other Psychiatric Psychiatric: Denies anxiety, depression, homicidal ideation, suicidal ideation or other Endocrine Endocrinology: Denies change in body appearance, cold intolerance, excessive sweating, heat intolerance, polydipsia, polyuria or other Hematologic/Lymphatic Hematologic/Lymphatic: Denies anemia, easy bleeding, easy bruising, lymphadenopathy or other Allergic/Immunologic Allergic/Immunologic: Denies rhinitis, hives, eczemia, asthma or other Vital Signs Vital Signs Vital Signs: 11/18/22 16:51 11/18/22 18:11 Temperature 98.6 F Temperature Source Temporal Pulse Rate 86 Respiratory Rate 16 Respiratory Effort Normal Respiratory Pattern Normal Blood Pressure 134/63 H Blood Pressure Mean 86 Pulse Ox 98 Oxygen Delivery Method Room Air Weight Weight: 65.771 kg Body Mass Index (BMI) 22.7 Physical Exam Const alert, oriented x3, no apparent distress and well nourished Constitutional Narrative: Elderly white female, sitting up in a chair at the bedside, family at bedside, patient appears comfortable and nontoxic General Appearance: cooperative HEENT normocephalic, head/scalp atraumatic, hearing grossly normal bilaterally and moist oral mucous membranes HEENT Narrative: Dentures in place, Mallampati 2, no thrush Eyes PERRL and EOMs intact bilaterally; Negative for conjunctivae normal Eyes Narrative: Significantly pale conjunctiva bilaterally, no scleral icterus Neck no lymphadenopathy, supple, no JVD and no carotid bruits Neck Narrative: Trachea midline, no thyroid enlargement Resp normal respiratory effort, no retractions, no use of accessory muscles and clear to auscultation bilaterally Resp Narrative: Diffusely diminished but clear Auscultation: Negative for rales, rhonchi or wheezes Cardio regular rate, regular rhythm, S1 normal heart sound, S2 normal heart sound, no murmurs, no rub, no gallops and no clicks GI normal to inspection, nondistended, normoactive bowel sounds, soft to palpation and non-tender Extremity no clubbing, cyanosis or edema Extremity Narrative: 2+ pedal pulses Skin no wounds, skin turgor normal, no jaundice, no petechiae and no mottling Skin Narrative: Pale, palmar creases are extremely pale, skin changes consistent with previous sun exposure Neuro oriented x3, CN's II-XII intact bilaterally, moves all extremities and no focal motor deficits Speech: speech normal Psych affect normal Psych Narrative: Very pleasant, eye contact is good, patient was appropriately interactive Results Lab / Micro Data Attestation: I reviewed the patient's lab results. Result Diagrams: 11/18/22 21:24 11/18/22 18:10 Labs: Laboratory Results - last 24 hr 11/18/22 17:23: WBC 7.7, RBC 3.24 L, Hgb 6.5 L, Hct 23.5 L, MCV 72.5 L, MCH 20.1 L, MCHC 27.7 L, RDW Std Deviation 48.6 H, RDW Coeff of Shay 18.5 H, Plt Count 365, MPV 10.5, Immature Gran % (Auto) 0.400, Neut % (Auto) 61.0, Lymph % (Auto) 24.8, [place] % (Auto) 10.6 H, Eos % (Auto) 2.5, Baso % (Auto) 0.7, Absolute Neuts (auto) 4.7, Absolute Lymphs (auto) 1.90, Nucleated RBC % 0.3 11/18/22 17:23: Blood Type A NEGATIVE, Antibody Screen NEGATIVE 11/18/22 18:10: Sodium 138, Potassium 3.9, Chloride 108 H, Carbon Dioxide 26.0, Anion Gap 4 L, BUN 16, Creatinine 0.68, Estim Creat Clear Calc 42.91, Est GFR (MDRD) Af Amer 107, Est GFR (MDRD) Non-Af 88, BUN/Creatinine Ratio 23.6 H, Glucose 100, Calcium 8.8 11/18/22 19:21: PT 12.2, INR 0.9 11/18/22 19:21: Total Bilirubin 0.20, Direct Bilirubin 0.06, AST 17, ALT 19, Alkaline Phosphatase 94, Total Protein 7.8, Albumin 3.5, Globulin 4.3 H Micro: Microbiology 11/18/22 19:15 Stool Stool Occult Blood (NINA) - Final Assessment & Plan Assessment/Plan (1) Acute anemia: (2) GIB (gastrointestinal bleeding): PLAN: Plan Acute anemia secondary to suspected GI bleed -Highly suspect lower even though guaiac negative -Iron studies are indicative of iron deficiency -Patient has never had colonoscopy and with the findings I be concerned about a malignancy -Plan is for colonoscopy and EGD tomorrow per discussion with Dr. Navarro -Bowel prep ordered -Clear liquid diet until midnight then n.p.o. other than bowel prep -Start IV fluids at midnight at 50 cc/h with LR -GI consultation-discussed with Dr. Navarro Iron deficiency anemia -Hemoglobin is 6.7 -1 unit packed red blood cells is ordered to be given -We will start IV iron tonight and then to be given daily for 2 more days -Recommend initiating oral iron at the time of discharge -Cycle hemoglobin x2 every 6 hours -Repeat CBC in a.m. Glaucoma -Continue home eyedrops Spinal stenosis -As needed Tylenol for pain Tobacco abuse -Recommend cessation -Currently smokes 1/2 pack of cigarettes daily -Offered nicotine replacement patient deferred at this time DVT prophylaxis -Chemoprophylaxis contraindicated secondary to severe anemia and suspected GI bleed -SCDs CODE STATUS -Full code as reviewed prior to admission with the patient Charges/Coding Visit Charges Inpatient E&M: 10939 Init Hosp L2
[2022-11-18 21:33] LABS: Hemoglobin 6.9 g/dL (12.0-15.0); Platelet Count 397 K/mm3 (150-450); RET-HE 16.6 pg (30-35); Reticulocyte Count 2.21 % (0.5-1.5)
[2022-11-18 22:00] VITALS: BP 136/70; PULSE 87; RESP 18; TEMP 37; O2SAT 98
[2022-11-18 22:02] VITALS: BP 136/70; PULSE 87; RESP 18; TEMP 37; O2SAT 98
[2022-11-18 22:10] LABS: Ferritin 4 ng/mL (8-252); Iron 12 ug/dL (50-170); Iron Binding Capacity,Total 466 ug/dL (250-450); PERCENT IRON SATURATION 2.6 % (15.0-55.0)
--- NOTE | 2022-11-18 22:21 | EDS_ITS ---
HPI History of Present Illness Chief Complaint: Abn Labs Narrative Narrative: 82-year-old female presenting with anemia. She states that for the last couple of weeks she has felt weak, lightheaded, little short of breath. She is definitely pale. No history of black or bloody stools. She thought that she had something viral initially and stated she started to feel better but then never did. She has continued nausea over the last couple of weeks. She has not complained of any pain. No vomiting. Patient states he does have a history of anemia. No fevers, chills, cough. PFSH PFS Medical History DDD (degenerative disc disease), lumbar Spinal stenosis Tobacco abuse Home Medications magnesium 200 mg tablet 200 mg PO DAILY SUPPLEMENT 11/19/17 [History Last Taken 11/17/22] vitamin B complex (B Complex 1 tablet) 1 tab PO QDAY 11/19/17 [History Last Taken 11/17/22] aspirin 325 mg tablet 325 mg PO DAILY PRN Pain 03/20/22 [History Last Taken Unknown] brimonidine 0.2 %-timolol 0.5 % eye drops (Combigan) 1 drp EACH EYE BID . 11/18/22 [History Last Taken 11/18/22] cholecalciferol (vitamin D3) 25 mcg (1,000 unit) tablet (Vitamin D3) 25 mcg PO DAILY SUPPLEMENT 11/18/22 [History Last Taken 11/17/22] Allergy/AdvReac Type Severity Reaction Status Date / Time meperidine [From Demerol] Allergy Unknown Verified 11/18/22 16:52 Family History Mother Cancer Father Cancer Sister Cancer Surgical History H/O: hysterectomy Social History Smoking Status: Current every day smoker tobacco type: cigarettes ROS ROS ED Constitutional Constitutional ED: Denies chills or fever(s) Eyes Eyes: Denies change in vision or diplopia ENT ENT ED: Denies rhinorrhea or sore throat Cardiovascular Cardiovascular: Denies chest pain or palpitations Respiratory/Chest Respiratory/Chest: Reports dyspnea and dyspnea on exertion Gastrointestinal Gastrointestinal: Denies abdominal pain Genitourinary Genitourinary ED: Denies dysuria or hematuria Musculoskeletal Musculoskeletal: Denies arthralgias Integumentary Reports other Details: Pale skin ; Denies abscess or Abrasions Neurologic Neurologic: Denies headache(s) Psychiatric Psychiatric: Denies anxiety or depression Hematologic/Lymphatic Hematologic/Lymphatic: Reports anemia; Denies easy bleeding EXAM Physical Exam Const Vital Signs: 11/18/22 16:51 11/18/22 18:11 Temperature 98.6 F Temperature Source Temporal Pulse Rate 86 Respiratory Rate 16 Respiratory Effort Normal Respiratory Pattern Normal Blood Pressure 134/63 H Blood Pressure Mean 86 Pulse Ox 98 Oxygen Delivery Method Room Air Positive well nourished General Appearance ED: NAD and pallor HEENT Reports moist mucous membranes Negative for trauma Eyes PERRL and EOMs intact bilaterally General Eye ED: Yes pale conjunctiva Chest Wall inspection of chest normal Resp normal respiratory effort and clear to auscultation bilaterally Auscultation: Negative for rales or rhonchi Cardio regular rate and regular rhythm GI normal to inspection, nondistended, normoactive bowel sounds Neuro oriented x3 and CN's II-XII intact bilaterally Sensorium / Orientation: alert Motor Exam: strength 5/5 throughout Skin no rashes or lesions noted General Skin Exam: pallor; Negative for jaundice MDM MDM MDM Narrative Medical decision making narrative: Patient presenting with anemia. Her hemoglobin is 6.5 today. White blood count 7.7. He does not like she has an iron deficiency anemia looking at her blood work on her CBC. Patient was typed and screened as well as crossmatched she is symptomatic and her hemoglobin is down below 7. She does give a history of nausea for the last 2 weeks. No black or bloody stools. Hemoccult negative. Liver function normal. Renal function electrolytes unremarkable. Discussed with Dr. Navarro who stated that he agreed she need to be admitted and probably have upper endoscopy performed. This is discussed with the patient. Discussed with the hospitalist for admission who recommended iron binding which were ordered. Impression: 1. Acute blood loss anemia 2. GI bleed Lab Data Attestation: I reviewed the patient's lab results. Labs: Laboratory Results - last 24 hr 11/18/22 11/18/22 11/18/22 17:23 17:23 17:23 WBC 7.7 RBC 3.24 L Hgb 6.5 L Hct 23.5 L MCV 72.5 L MCH 20.1 L MCHC 27.7 L RDW Std Deviation 48.6 H RDW Coeff of Shay 18.5 H Plt Count 365 MPV 10.5 Immature Gran % (Auto) 0.400 Neut % (Auto) 61.0 Lymph % (Auto) 24.8 [place] % (Auto) 10.6 H Eos % (Auto) 2.5 Baso % (Auto) 0.7 Absolute Neuts (auto) 4.7 Absolute Lymphs (auto) 1.90 Nucleated RBC % 0.3 PT INR Sodium Potassium Chloride Carbon Dioxide Anion Gap BUN Creatinine Estim Creat Clear Calc Est GFR (MDRD) Af Amer Est GFR (MDRD) Non-Af BUN/Creatinine Ratio Glucose Calcium Total Bilirubin Direct Bilirubin AST ALT Alkaline Phosphatase Total Protein Albumin Globulin Blood Type A NEGATIVE Antibody Screen NEGATIVE Crossmatch See Detail 11/18/22 11/18/22 11/18/22 18:10 19:21 19:21 WBC RBC Hgb Hct MCV MCH MCHC RDW Std Deviation RDW Coeff of Shay Plt Count MPV Immature Gran % (Auto) Neut % (Auto) Lymph % (Auto) [place] % (Auto) Eos % (Auto) Baso % (Auto) Absolute Neuts (auto) Absolute Lymphs (auto) Nucleated RBC % PT 12.2 INR 0.9 Sodium 138 Potassium 3.9 Chloride 108 H Carbon Dioxide 26.0 Anion Gap 4 L BUN 16 Creatinine 0.68 Estim Creat Clear Calc 42.91 Est GFR (MDRD) Af Amer 107 Est GFR (MDRD) Non-Af 88 BUN/Creatinine Ratio 23.6 H Glucose 100 Calcium 8.8 Total Bilirubin 0.20 Direct Bilirubin 0.06 AST 17 ALT 19 Alkaline Phosphatase 94 Total Protein 7.8 Albumin 3.5 Globulin 4.3 H Blood Type Antibody Screen Crossmatch Discharge Plan Triage Chief Complaint: Abn Labs ED Provider: Jose Willingham Dx/Rx/DC Orders Primary Care Provider: Kiara Geronimo
[2022-11-18 22:47] VITALS: BMI 22.4
--- NOTE | 2022-11-18 23:00 | EX.PCM.CON.G ---
HPI Consult Data Date of Consult: 11/18/22 HPI Narrative Reason for Consultation: Anemia HPI Narrative: JUANITA CHAN, is a 82 F who presented from her primary care physician's office to the emergency department at [facility] with abnormal lab values.? Patient has been experiencing increased fatigue and shortness of breath over the last 2 weeks.? She states really about 4 weeks ago she had upper respiratory tract infection and thought this was all related to that.? But she has not improved so she went to her doctor today.? At her primary care physician's office lab were drawn and she was noticed to be anemic and sent to the emergency department.?? She has never had a colonoscopy. She takes 325 mg aspirin per day. She denied any signs of GI bleeding. In the ED she was noted to have a hemoglobin of 6 with a BUN/creatinine ratio of 18/1.5. I was consulted for management of anemia. [facility] Medical History DDD (degenerative disc disease), lumbar Spinal stenosis Tobacco abuse Home Medications magnesium 200 mg tablet 200 mg PO DAILY SUPPLEMENT 11/19/17 [History Last Taken 11/17/22] vitamin B complex (B Complex 1 tablet) 1 tab PO QDAY 11/19/17 [History Last Taken 11/17/22] aspirin 325 mg tablet 325 mg PO DAILY PRN Pain 03/20/22 [History Last Taken Unknown] brimonidine 0.2 %-timolol 0.5 % eye drops (Combigan) 1 drp EACH EYE BID . 11/18/22 [History Last Taken 11/18/22] cholecalciferol (vitamin D3) 25 mcg (1,000 unit) tablet (Vitamin D3) 25 mcg PO DAILY SUPPLEMENT 11/18/22 [History Last Taken 11/17/22] Allergy/AdvReac Type Severity Reaction Status Date / Time meperidine [From Demerol] Allergy Unknown Verified 11/18/22 16:52 Family History Mother Cancer Father Cancer Sister Cancer Surgical History H/O: hysterectomy Social History Smoking Status: Current every day smoker tobacco type: cigarettes ROS Constitutional Constitutional: Reports fatigue, malaise and weakness; Denies anorexia, change in weight, chills, fever(s), night sweats or other Eyes Eyes: Denies blurry vision, change in eye color, change in vision, discharge from eye(s), double vision, erythema, eye pain, loss of vision or other ENT HEENT: Denies abnormal hearing, dysphagia, ear pain, epistaxis, headache(s), hearing loss, nasal congestion, nasal discharge, post nasal drip, sinus pressure, sore throat or other Cardiovascular Cardiovascular: Reports dyspnea on exertion; Denies chest pain, claudication, edema, lightheadedness, orthopnea, palpitations, paroxysmal nocturnal dyspnea, rapid heart rate, syncope or other Respiratory/Chest Respiratory/Chest: Reports cough, dyspnea and shortness of breath with exertion; Denies excessive phlegm production, hemoptysis, productive cough, shortness of breath at rest, wheezing or other Gastrointestinal Gastrointestinal: Denies abdominal pain, coffee ground emesis, constipation, diarrhea, dyspepsia, hematemesis, hematochezia, loose stools, melena, nausea, vomiting or other Genitourinary Genitourinary: Denies burning urination, difficulty urinating, dysuria, hematuria, nocturia, urinary frequency, urinary hesitancy, urinary incontinence, urinary urgency or other Musculoskeletal Musculoskeletal: Reports back pain; Denies arthralgias, joint pain, joint stiffness, joint swelling, myalgias, neck pain or other Neurologic Neurologic: Denies abnormal gait, abnormal speech, confusion, disequilibrium, dizziness, focal weakness, headache(s), numbness, paresthesias, seizure-like activity, seizures, syncope, tingling, tremor(s) or other Psychiatric Psychiatric: Denies anxiety, depression, homicidal ideation, suicidal ideation or other Endocrine Endocrinology: Denies change in body appearance, cold intolerance, excessive sweating, heat intolerance, polydipsia, polyuria or other Hematologic/Lymphatic Hematologic/Lymphatic: Denies anemia, easy bleeding, easy bruising, lymphadenopathy or other Allergic/Immunologic Allergic/Immunologic: Denies rhinitis, hives, eczemia, asthma or other Physical Exam Const alert, oriented x3, no apparent distress and well nourished Constitutional Narrative: Elderly white female, sitting up in a chair at the bedside, family at bedside, patient appears comfortable and nontoxic General Appearance: cooperative HEENT normocephalic, head/scalp atraumatic, hearing grossly normal bilaterally and moist oral mucous membranes HEENT Narrative: Dentures in place, Mallampati 2, no thrush Eyes PERRL and EOMs intact bilaterally; Negative for conjunctivae normal Eyes Narrative: Significantly pale conjunctiva bilaterally, no scleral icterus Neck no lymphadenopathy, supple, no JVD and no carotid bruits Neck Narrative: Trachea midline, no thyroid enlargement Resp normal respiratory effort, no retractions, no use of accessory muscles and clear to auscultation bilaterally Resp Narrative: Diffusely diminished but clear Auscultation: Negative for rales, rhonchi or wheezes Cardio regular rate, regular rhythm, S1 normal heart sound, S2 normal heart sound, no murmurs, no rub, no gallops and no clicks GI normal to inspection, nondistended, normoactive bowel sounds, soft to palpation and non-tender Extremity no clubbing, cyanosis or edema Extremity Narrative: 2+ pedal pulses Skin no wounds, skin turgor normal, no jaundice, no petechiae and no mottling Skin Narrative: Pale, palmar creases are extremely pale, skin changes consistent with previous sun exposure Neuro oriented x3, CN's II-XII intact bilaterally, moves all extremities and no focal motor deficits Speech: speech normal Psych affect normal Psych Narrative: Very pleasant, eye contact is good, patient was appropriately interactive Lab / Micro Data Result Diagrams: 11/19/22 03:39 11/19/22 03:39 Labs: Laboratory Results - last 24 hr 11/18/22 17:23: WBC 7.7, RBC 3.24 L, Hgb 6.5 L, Hct 23.5 L, MCV 72.5 L, MCH 20.1 L, MCHC 27.7 L, RDW Std Deviation 48.6 H, RDW Coeff of Shay 18.5 H, Plt Count 365, MPV 10.5, Immature Gran % (Auto) 0.400, Neut % (Auto) 61.0, Lymph % (Auto) 24.8, [place] % (Auto) 10.6 H, Eos % (Auto) 2.5, Baso % (Auto) 0.7, Absolute Neuts (auto) 4.7, Absolute Lymphs (auto) 1.90, Nucleated RBC % 0.3 11/18/22 17:23: Blood Type A NEGATIVE, Antibody Screen NEGATIVE 11/18/22 17:23: Crossmatch See Detail 11/18/22 18:10: Sodium 138, Potassium 3.9, Chloride 108 H, Carbon Dioxide 26.0, Anion Gap 4 L, BUN 16, Creatinine 0.68, Estim Creat Clear Calc 42.91, Est GFR (MDRD) Af Amer 107, Est GFR (MDRD) Non-Af 88, BUN/Creatinine Ratio 23.6 H, Glucose 100, Calcium 8.8 11/18/22 19:21: PT 12.2, INR 0.9 11/18/22 19:21: Total Bilirubin 0.20, Direct Bilirubin 0.06, AST 17, ALT 19, Alkaline Phosphatase 94, Total Protein 7.8, Albumin 3.5, Globulin 4.3 H 11/18/22 21:24: Hgb 6.9 L, Retic Count 2.21 H, Immature Retic Fraction 23.00 H, Retic Hgb Equivalent 16.6 L 11/18/22 21:24: Iron 12 L, TIBC 466 H, Iron Saturation 2.6 L, Ferritin 4 L 11/19/22 03:39: WBC 8.2, RBC 3.28 L, Hgb 6.5 L, Hct 23.5 L, MCV 71.6 L, MCH 19.8 L, MCHC 27.7 L, RDW Std Deviation 47.4 H, RDW Coeff of Shay 18.3 H, Plt Count 355, MPV 9.0, Immature Gran % (Auto) 0.400, Neut % (Auto) 70.5 H, Lymph % (Auto) 14.9 L, [place] % (Auto) 11.4 H, Eos % (Auto) 2.3, Baso % (Auto) 0.5, Absolute Neuts (auto) 5.8, Absolute Lymphs (auto) 1.22, Nucleated RBC % 0 11/19/22 03:39: Sodium 139, Potassium 3.8, Chloride 109 H, Carbon Dioxide 26.0, Anion Gap 4 L, BUN 11, Creatinine 0.64, Estim Creat Clear Calc 42.91, Est GFR (MDRD) Af Amer 115, Est GFR (MDRD) Non-Af 95, BUN/Creatinine Ratio 17.2, Glucose 110 H, Calcium 8.8, Phosphorus 4.0, Magnesium 2.1, Total Bilirubin 0.20, AST 14 L, ALT 16, Alkaline Phosphatase 82, Total Protein 7.3, Albumin 3.4, Globulin 3.9, Albumin/Globulin Ratio 0.9 Micro: Microbiology 11/18/22 19:15 Stool Stool Occult Blood (NINA) - Final Radiology Impression Chest X-Ray 11/19/22 06:00 IMPRESSION: No radiographic evidence of acute cardiopulmonary disease. Electronically Signed: Anthony Mcbride MD at 6:16 EDT , Assessment & Plan Assessment/Plan (1) Acute anemia: (2) GIB (gastrointestinal bleeding): PLAN: Plan Suspect acute anemia secondary to suspected GI bleed. Her Iron studies are indicative of iron deficiency -Patient has never had colonoscopy and with the findings I be concerned about a malignancy -Plan is for colonoscopy and EGD tomorrow -Bowel prep ordered -Clear liquid diet until midnight then n.p.o. other than bowel prep -Start IV fluids at midnight at 50 cc/h with LR -Hemoglobin is 6.7 -1 unit packed red blood cells is ordered to be given -Recommend initiating oral iron at the time of discharge -Cycle hemoglobin x2 every 6 hours -Repeat CBC in a.m. Charges/Coding Visit Charges Inpatient E&M: 48418 Init Hosp L3
[2022-11-18] MEDS: Polyethylene Glycol 3350 BOWEL PREP PO (23:45)
[2022-11-19] VITALS (14 sets, daily range): BP systolic 132–166; BP diastolic 45–80; PULSE 76–101; RESP 16–18; TEMP 36.3–36.9; O2SAT 96–100; BMI 22.8
[2022-11-19] MEDS: Bisacodyl 5 MG Tablet 20 MG PO (00:32)
[2022-11-19] MEDS: Sodium Ferric Gluconat 250 MG in 0.9% Normal Saline 250 ML 135 MG IV ×2 (00:32→11:07)
[2022-11-19] MEDS: Timolol 0.5% 5ML OPTH.BTL 1 DRP EACH EYE (00:35)
[2022-11-19] MEDS: BRIMONIDINE 0.2% 5ML BOTTLE 1 DRP EACH EYE ×2 (00:36→09:38)
[2022-11-19 03:47] LABS: Absolute Lymphocyte Count 1.22 X10^3/uL (0.83-4.51); Absolute Neutrophil Count 5.8 X10^3/uL (2.0-7.7); Basophil# 0.04 X10^3/uL; Basophil% 0.5 % (0-1); Eosinophil# 0.19 X10^3/uL; Eosinophils% 2.3 % (0-5); Hematocrit 23.5 % (37-47); Hemoglobin 6.5 g/dL (12.0-15.0); Lymphocyte # 1.22 X10^3/ul (0.83-4.51); Lymphocyte % 14.9 % (19-41); Mean Corp Hgb Conc 27.7 g/dL (32-36); Mean Corpuscular Hgb 19.8 pg (27.0-32.0); Mean Corpuscular Volume 71.6 fL (81-99); Monocyte# 0.93 X10^3/uL; Monocyte% 11.4 % (0-10); NRBC Flagged by Analyzer 0 % (0-5); Neutrophil # 5.78 X10^3/uL (2.7-7.7); Neutrophil % 70.5 % (47-70); Platelet Count 355 K/mm3 (150-450); RBC Distribution Width CV 18.3 % (11.6-14.6); RBC Distribution Width SD 47.4 fl (35.1-43.9); Red Blood Count 3.28 M/mm3 (4.2-5.4); White Blood Count 8.2 K/mm3 (4.4-11.0)
[2022-11-19] MEDS: Lactated Ringers 1,000 ML 50 ML IV (04:30)
[2022-11-19 04:42] LABS: ALB/GLOB Ratio 0.9 RATIO (0.9-2.4); AST(SGOT) 14 U/L (15-37); Alanine Aminotransfer ALT/SGPT 16 U/L (13-56); Albumin, Serum 3.4 g/dL (3.2-5.0); Alkaline Phosphatase 82 U/L (45-117); Anion Gap 4 (5-15); BUN 11 mg/dL (7-18); BUN/Creat Ratio 17.2 RATIO (10-20); Calcium,Total 8.8 mg/dL (8.5-10.1); Chloride 109 mmol/L (98-107); Creatinine, Serum 0.64 mg/dL (0.55-1.02); EST Glomerular Filtration Rate 95 mL/min (>60); Est Glom Filt Rate - Afr Amer 115 mL/min (>60); Estimated Creatinine Clearance 42.91 ml/min; Globulin 3.9 g/dL (2.2-4.2); Glucose 110 mg/dL (74-106); Magnesium 2.1 mg/dL (1.6-2.6); Potassium 3.8 mmol/L (3.5-5.1); Protein, Total 7.3 g/dL (6.4-8.2); Sodium Level 139 mmol/L (136-145)
--- NOTE | 2022-11-19 06:00 | RAD_ITS ---
INDICATION: pre operative EXAMINATION/TECHNIQUE: X-RAY - XR Chest 1 View COMPARISON: None. FINDINGS: LINES/DEVICES: None. LUNGS: No consolidation, edema or effusion. No pneumothorax. MEDIASTINUM AND CARDIOVASCULAR STRUCTURES: Cardiac silhouette not enlarged. Central airways and mediastinal contour are unremarkable. BONES AND SOFT TISSUES: Unremarkable. RAD/Chest 1 View IMPRESSION: No radiographic evidence of acute cardiopulmonary disease. Electronically Signed: Anthony Mcbride MD at 6:16 EDT ,
--- NOTE | 2022-11-19 07:30 | PN.HOSP_ITS ---
Reason for Visit Reason for Visit: Diagnoses Anemia, unspecified (11/18/22) Gastrointestinal hemorrhage, unspecified (11/18/22) Follow-up for severe anemia. Subjective Subjective Follow-up for severe anemia found in the lab. Objective Data Objective Data Vital Signs: Vital Signs Temp Pulse Resp BP Pulse Ox O2 Del Method 97.9 F 78 18 160/60 H 99 Room Air 11/19/22 06:17 11/19/22 06:17 11/19/22 06:17 11/19/22 06:17 11/19/22 06:17 11/19/22 06:17 Oxygen Delivery Method Room Air Weight: 142 lb 13.753 oz Body Mass Index (BMI) 22.4 Intake & Output: Intake and Output for Last 24 Hours 11/17/22 11/18/22 11/19/22 23:59 23:59 23:59 Intake Total 780 / 780 Balance 780 / 780 Lab / Micro Data Result Diagrams: 11/19/22 03:39 11/19/22 03:39 Labs: Laboratory Results - last 24 hr 11/18/22 17:23: WBC 7.7, RBC 3.24 L, Hgb 6.5 L, Hct 23.5 L, MCV 72.5 L, MCH 20.1 L, MCHC 27.7 L, RDW Std Deviation 48.6 H, RDW Coeff of Shay 18.5 H, Plt Count 365, MPV 10.5, Immature Gran % (Auto) 0.400, Neut % (Auto) 61.0, Lymph % (Auto) 24.8, [place] % (Auto) 10.6 H, Eos % (Auto) 2.5, Baso % (Auto) 0.7, Absolute Neuts (auto) 4.7, Absolute Lymphs (auto) 1.90, Nucleated RBC % 0.3 11/18/22 17:23: Blood Type A NEGATIVE, Antibody Screen NEGATIVE 11/18/22 17:23: Crossmatch See Detail 11/18/22 18:10: Sodium 138, Potassium 3.9, Chloride 108 H, Carbon Dioxide 26.0, Anion Gap 4 L, BUN 16, Creatinine 0.68, Estim Creat Clear Calc 42.91, Est GFR (MDRD) Af Amer 107, Est GFR (MDRD) Non-Af 88, BUN/Creatinine Ratio 23.6 H, Glucose 100, Calcium 8.8 11/18/22 19:21: PT 12.2, INR 0.9 11/18/22 19:21: Total Bilirubin 0.20, Direct Bilirubin 0.06, AST 17, ALT 19, Alkaline Phosphatase 94, Total Protein 7.8, Albumin 3.5, Globulin 4.3 H 11/18/22 21:24: Hgb 6.9 L, Retic Count 2.21 H, Immature Retic Fraction 23.00 H, Retic Hgb Equivalent 16.6 L 11/18/22 21:24: Iron 12 L, TIBC 466 H, Iron Saturation 2.6 L, Ferritin 4 L 11/19/22 03:39: WBC 8.2, RBC 3.28 L, Hgb 6.5 L, Hct 23.5 L, MCV 71.6 L, MCH 19.8 L, MCHC 27.7 L, RDW Std Deviation 47.4 H, RDW Coeff of Shay 18.3 H, Plt Count 355, MPV 9.0, Immature Gran % (Auto) 0.400, Neut % (Auto) 70.5 H, Lymph % (Auto) 14.9 L, [place] % (Auto) 11.4 H, Eos % (Auto) 2.3, Baso % (Auto) 0.5, Absolute Neuts (auto) 5.8, Absolute Lymphs (auto) 1.22, Nucleated RBC % 0 11/19/22 03:39: Sodium 139, Potassium 3.8, Chloride 109 H, Carbon Dioxide 26.0, Anion Gap 4 L, BUN 11, Creatinine 0.64, Estim Creat Clear Calc 42.91, Est GFR (MDRD) Af Amer 115, Est GFR (MDRD) Non-Af 95, BUN/Creatinine Ratio 17.2, Glucose 110 H, Calcium 8.8, Phosphorus 4.0, Magnesium 2.1, Total Bilirubin 0.20, AST 14 L, ALT 16, Alkaline Phosphatase 82, Total Protein 7.3, Albumin 3.4, Globulin 3.9, Albumin/Globulin Ratio 0.9 Micro: Microbiology 11/18/22 19:15 Stool Stool Occult Blood (NINA) - Final Radiography Diagnostic Testing: Radiology Impression Chest X-Ray 11/19/22 06:00 IMPRESSION: No radiographic evidence of acute cardiopulmonary disease. Electronically Signed: Anthony Mcbride MD at 6:16 EDT Reading Location ID and State: [facility] / [place] Tel , Service support , Physical Exam Narrative Patient denies any dizziness lightheadedness. Patient feels weak on exertion at home. Currently asymptomatic. Denies obvious/external GI bleed including black stool brown or red stool. No hematemesis. Physical exam General: Alert, Oriented x3, Cooperative HEENT: Atraumatic, PERRLA, EOMI, Normocephalic Oral: Oral mucosa moist. No Gingival or Mucosal Lesions/ Ulcerations Neck: Supple, No JVD, Negative Carotid Bruits Lungs: Air entry diminished in bilateral lung bases. No crepitation/rhonchi Cardiovascular: Regular rate, Regular Rhythm, Normal S1, Normal S2, No murmurs Abdomen: Bowel Sounds Present, Soft, Non Tender, Non-Distended : No renal angle tenderness. No suprapubic tenderness. Extremities: No edema, Capillary Refill Less than 3 Seconds Skin: No rashes, No breakdown Musculoskeletal: No Tenderness to Palpation of Joints or Extremities Neurological: Cranial nerves II-XII grossly intact, DTR 2+/4 and Symmetrical, Neuro grossly intact Psych/Mental Status: Normal Affect, Appropriate. Assessment & Plan Assessment/Plan (1) Acute anemia: (2) GIB (gastrointestinal bleeding): PLAN: Plan 82-year-old female admitted with generalized weakness lightheadedness shortness of breath on exertion and abnormal lab consistent with severe anemia. No history of black or brown stool or melena. She had persistent nausea for last couple weeks. No vomiting. Acute anemia secondary to suspected GI bleed: Suspected lower GI bleed. Anemia work-up suggestive of iron deficiency anemia. Stool for occult blood negative. She never had colonoscopy but had EGD many years ago. Plan for EGD and colonoscopy. Gastroenterology saw the patient yesterday. Hemoglobin 6.5. INR normal. Liver chemistry total bilirubin normal, liver chemistry normal. Alkaline phosphatase normal. N.p.o. for the procedure. On IV fluid. Iron deficiency anemia: Patient reminded of PRBC transfusion. IV iron also ordered for 2 days. No significant change after transfusion Glaucoma -Continue home eyedrops Spinal stenosis -As needed Tylenol for pain Tobacco abuse -Recommend cessation -Currently smokes 1/2 pack of cigarettes daily -Offered nicotine replacement patient deferred at this time DVT prophylaxis -Chemoprophylaxis contraindicated secondary to severe anemia and suspected GI bleed -SCDs CODE STATUS -Full code as reviewed prior to admission with the patient Microbiology Past 72 Hours 11/18/22 19:15 Stool Stool Occult Blood (NINA) - Final Laboratory Results 11/18/22 17:23: WBC 7.7, RBC 3.24 L, Hgb 6.5 L, Hct 23.5 L, MCV 72.5 L, MCH 20.1 L, MCHC 27.7 L, RDW Std Deviation 48.6 H, RDW Coeff of Shay 18.5 H, Plt Count 365, MPV 10.5, Immature Gran % (Auto) 0.400, Neut % (Auto) 61.0, Lymph % (Auto) 24.8, [place] % (Auto) 10.6 H, Eos % (Auto) 2.5, Baso % (Auto) 0.7, Absolute Neuts (auto) 4.7, Absolute Lymphs (auto) 1.90, Nucleated RBC % 0.3 11/18/22 17:23: Blood Type A NEGATIVE, Antibody Screen NEGATIVE 11/18/22 17:23: Crossmatch See Detail 11/18/22 18:10: Sodium 138, Potassium 3.9, Chloride 108 H, Carbon Dioxide 26.0, Anion Gap 4 L, BUN 16, Creatinine 0.68, Estim Creat Clear Calc 42.91, Est GFR (MDRD) Af Amer 107, Est GFR (MDRD) Non-Af 88, BUN/Creatinine Ratio 23.6 H, Glucose 100, Calcium 8.8 11/18/22 19:21: PT 12.2, INR 0.9 11/18/22 19:21: Total Bilirubin 0.20, Direct Bilirubin 0.06, AST 17, ALT 19, Alkaline Phosphatase 94, Total Protein 7.8, Albumin 3.5, Globulin 4.3 H 11/18/22 21:24: Hgb 6.9 L, Retic Count 2.21 H, Immature Retic Fraction 23.00 H, Retic Hgb Equivalent 16.6 L 11/18/22 21:24: Iron 12 L, TIBC 466 H, Iron Saturation 2.6 L, Ferritin 4 L 11/19/22 03:39: WBC 8.2, RBC 3.28 L, Hgb 6.5 L, Hct 23.5 L, MCV 71.6 L, MCH 19.8 L, MCHC 27.7 L, RDW Std Deviation 47.4 H, RDW Coeff of Shay 18.3 H, Plt Count 355, MPV 9.0, Immature Gran % (Auto) 0.400, Neut % (Auto) 70.5 H, Lymph % (Auto) 14.9 L, [place] % (Auto) 11.4 H, Eos % (Auto) 2.3, Baso % (Auto) 0.5, Absolute Neuts (auto) 5.8, Absolute Lymphs (auto) 1.22, Nucleated RBC % 0 11/19/22 03:39: Sodium 139, Potassium 3.8, Chloride 109 H, Carbon Dioxide 26.0, Anion Gap 4 L, BUN 11, Creatinine 0.64, Estim Creat Clear Calc 42.91, Est GFR (MDRD) Af Amer 115, Est GFR (MDRD) Non-Af 95, BUN/Creatinine Ratio 17.2, Glucose 110 H, Calcium 8.8, Phosphorus 4.0, Magnesium 2.1, Total Bilirubin 0.20, AST 14 L, ALT 16, Alkaline Phosphatase 82, Total Protein 7.3, Albumin 3.4, Globulin 3.9, Albumin/Globulin Ratio 0.9 Charges/Coding Visit Charges Inpatient E&M: 51630 Subs Hosp L2
--- NOTE | 2022-11-19 10:05 | CASEMGMT ---
MARIELY VINCENT Assessment: Face to Face with pt for initial transition planning/care coordination assessment. RN CARLTON introduced self and role at [facility], pt voices understanding and consents to assessment. Pt is A/O x4 and answers all questions appropriately at this time. Pt lying in bed in no distress. Care providers, pharmacy, and demographics verified/updated. Admitting Dx: severe anemia PCP:Juanpablo Specialists:Pt denies. [facility] Insurance: [facility] [place] Prescription Benefit: yes LNOK: Lindy Hernandez, dtr; Trino Hurtado, son Living Arrangements: Pt lives with son in a two story home with 3 steps to enter without a rail. Pt reports she is I in ADL's and denies concerns at home. Transportation: Pt drives self and denies concerns with transportation. DME/HHC/SNF: Pt has a grab bar in the tub, does not use AD. Pt denies hx of HHC or SNF stays. Pt states no concerns with going home at time of dc. Pt states no further concerns/needs. CM to follow. Advised pt to ask CM if any further question/concerns/needs arise, voices understanding. Pt Goal: Home Plan: Home
--- NOTE | 2022-11-19 12:07 | NURSING ---
Pt off floor for scope.
--- NOTE | 2022-11-19 13:00 | COLBX_PTH ---
PATIENT: JUANITA CHAN LOC: MS3 U#:[id number] AGE/SX: 82/F ROOM: PR318 RE11/18/[address]: Dr. Dylon Newton MD : 1940 BED: 1 DIS: 11/19/2022 SPEC #: [id number] RECD: 11/19/22 16:17 STATUS: FLORENCIA MOCK #: [id number] TRACY: 11/19/22 13:[address]: Lon Navarro DEPT: SURGICAL PATHOLOGY RECD BY: Melanie Oliveros ENTERED: 11/20/22 11:07 SP TYPE: COLON BX OTHR DR: MD Dr. Nahed Blandon DO Dr. Prakash Chand, MD Tissues: A - Esophagus, NOS B - Sigmoid colon biopsy Procedures: Special Stain Group II Surgery Specimen Level IV Alcian Blue/PAS (control) HEADER OPERATION: Colonoscopy, EGD with biopsies (MAC) PRE-OP DIAGNOSIS: Anemia TISSUE SUBMITTED: A ? Distal esophagus biopsy, B ? Sigmoid polyp biopsy MICROSCOPIC DIAGNOSIS A. Distal esophagus, biopsy: Fragments of gastroesophageal mucosa with moderate chronic inflammation. Intestinal metaplasia (goblet cell metaplasia) not identified. See comment. B. Sigmoid polyp, biopsy: Fragments of tubular adenoma. AYAD:viki 11/21/2022 COMMENT A. Alcian blue/PAS stain with matched control is used in the evaluation of the specimen. MICROSCOPIC DESCRIPTION Slides are reviewed. GROSS DESCRIPTION A - Received in fixative is one container labeled with the patient's name and designated distal esophagus. The specimen consists of multiple irregular fragments of light napoles soft tissue that in aggregate measure 0.5 x 0.5 x 0.1 cm. The specimen is totally submitted in one cassette. B - Received in fixative is one container labeled with the patient's name and designated sigmoid polyp. The specimen consists of two irregular fragments of light napoles soft tissue that in aggregate measure 0.7 x 0.5 x 0.1 cm. The specimen is totally submitted in one cassette. / AYAD:viki 11/20/2022 TC:1 CPT: 84295 x2, 19211
--- NOTE | 2022-11-19 13:53 | OP.EGD_ITS ---
Patient Name: Tracie Kiran Procedure Date: 11/19/2022 12:59 PM Date of : 1940 Age: 82 Procedure: Upper GI endoscopy Indications: Iron deficiency anemia Providers: Lon Navarro DO Medicines: Monitored Anesthesia Care Patient Profile: This is an 82 year old female. Refer to note in patient chart for documentation of history and physical. Patient has symptoms of chronic abdominal cramping and acute nausea. Complications: No immediate complications. Procedure: Pre-Anesthesia Assessment: - Prior to the procedure, a History and Physical was performed, and patient medications and allergies were reviewed. The patient is competent. The risks and benefits of the procedure and the sedation options and risks were discussed with the patient. All questions were answered and informed consent was obtained. Patient identification and proposed procedure were verified by the physician in the pre-procedure area. Mental Status Examination: alert and oriented. Airway Examination: normal oropharyngeal airway and neck mobility. Respiratory Examination: clear to auscultation. CV Examination: normal. Prophylactic Antibiotics: The patient does not require prophylactic antibiotics. Prior Anticoagulants: The patient has taken no previous anticoagulant or antiplatelet agents. ASA Grade Assessment: II - A patient with mild systemic disease. After reviewing the risks and benefits, the patient was deemed in satisfactory condition to undergo the procedure. The anesthesia plan was to use monitored anesthesia care (MAC). Immediately prior to administration of medications, the patient was re-assessed for adequacy to receive sedatives. The heart rate, respiratory rate, oxygen saturations, blood pressure, adequacy of pulmonary ventilation, and response to care were monitored throughout the procedure. The physical status of the patient was re-assessed after the procedure. After obtaining informed consent, the endoscope was passed under direct vision. Throughout the procedure, the patient's blood pressure, pulse, and oxygen saturations were monitored continuously. The pediatric colonoscope was introduced through the mouth, and advanced to the second part of duodenum. The upper GI endoscopy was accomplished without difficulty. The patient tolerated the procedure well. Scope In: 1:16:58 PM Scope Out: 1:20:22 PM Total Procedure Duration Time 0 hours 3 minutes 24 seconds Findings: The Z-line was irregular and was found 39 cm from the incisors. Biopsies were taken with a cold forceps for histology. Verification of patient identification for the specimen was done. Estimated blood loss was minimal. A non-obstructing Schatzki ring was found in the lower third of the esophagus. A guidewire was placed and the scope was withdrawn. Dilation was performed with a Savary dilator with no resistance at 42 Fr. The dilation site was examined and showed moderate improvement in luminal narrowing. Estimated blood loss was minimal. A small hiatal hernia was present. The entire examined stomach was normal. The second portion of the duodenum was normal. Impression: - Z-line irregular, 39 cm from the incisors. Biopsied. - Non-obstructing Schatzki ring. Dilated. - Small hiatal hernia. - Normal stomach. - Normal second portion of the duodenum. Recommendation: - Return patient to hospital [facility] for ongoing care. - Resume regular diet. - Continue present medications. - Await pathology results. Procedure Code(s): --- Professional --- 16256, Esophagogastroduodenoscopy, flexible, transoral; with insertion of guide wire followed by passage of dilator(s) through esophagus over guide wire 56249, 59, Esophagogastroduodenoscopy, flexible, transoral; with biopsy, single or multiple CPT copyright 2017 [employer]. All rights reserved. The codes documented in this report are preliminary and upon e commerce developer review may be revised to meet current compliance requirements. Lon Navarro DO 11/19/2022 1:53:00 PM This report has been signed electronically. Number of Addenda: 0 Note Initiated On: 11/19/2022 12:59 PM
--- NOTE | 2022-11-19 13:54 | OP.CCLET_ITS ---
11/19/2022 Kiara Geronimo [address] [place] [address] Re : Upper GI endoscopy procedure for Tracie Kiran Dear Dr. Geronimo This procedure was performed on Saturday, November 19, 2022. My impressions and recommendations are as follows: Impressions : - Z-line irregular, 39 cm from the incisors. Biopsied. - Non-obstructing Schatzki ring. Dilated. - Small hiatal hernia. - Normal stomach. - Normal second portion of the duodenum. Recommendations : - Return patient to [facility] care. - Resume regular diet. - Continue present medications. - Await pathology results. My findings are described in the full procedure note, which is enclosed. If I can be of further assistance, please feel free to contact me at . Sincerely, Lon Navarro, 11/19/2022 1:53:00 PM This report has been signed electronically.
--- NOTE | 2022-11-19 13:58 | OP.COLON_ITS ---
Patient Name: Tracie Kiran Procedure Date: 11/19/2022 1:20 PM Date of : 1940 Age: 82 Procedure: Colonoscopy Indications: Iron deficiency anemia Providers: Lon Navarro DO Medicines: Monitored Anesthesia Care Patient Profile: This is an 82 year old female. Refer to note in patient chart for documentation of history and physical. Patient has symptoms of chronic abdominal cramping and acute nausea. Last Colonoscopy: none. The patient's first colonoscopy is today. Complications: No immediate complications. Procedure: Pre-Anesthesia Assessment: - Prior to the procedure, a History and Physical was performed, and patient medications and allergies were reviewed. The patient is competent. The risks and benefits of the procedure and the sedation options and risks were discussed with the patient. All questions were answered and informed consent was obtained. Patient identification and proposed procedure were verified by the physician in the pre-procedure area. Mental Status Examination: alert and oriented. Airway Examination: normal oropharyngeal airway and neck mobility. Respiratory Examination: clear to auscultation. CV Examination: normal. Prophylactic Antibiotics: The patient does not require prophylactic antibiotics. Prior Anticoagulants: The patient has taken no previous anticoagulant or antiplatelet agents. ASA Grade Assessment: II - A patient with mild systemic disease. After reviewing the risks and benefits, the patient was deemed in satisfactory condition to undergo the procedure. The anesthesia plan was to use monitored anesthesia care (MAC). Immediately prior to administration of medications, the patient was re-assessed for adequacy to receive sedatives. The heart rate, respiratory rate, oxygen saturations, blood pressure, adequacy of pulmonary ventilation, and response to care were monitored throughout the procedure. The physical status of the patient was re-assessed after the procedure. After I obtained informed consent, the scope was passed under direct vision. Throughout the procedure, the patient's blood pressure, pulse, and oxygen saturations were monitored continuously. The pediatric colonoscope was introduced through the anus and advanced to the cecum, identified by appendiceal orifice and ileocecal valve. The colonoscopy was performed without difficulty. The patient tolerated the procedure well. The quality of the bowel preparation was adequate. Scope In: 1:23:33 PM Scope Withdrawal Time 0 hours 11 minutes 55 seconds Scope Out: 1:47:36 PM Total Procedure Duration Time 0 hours 24 minutes 3 seconds Findings: A few small-mouthed diverticula were found in the recto-sigmoid colon and sigmoid colon. A 9 mm polyp was found in the sigmoid colon. The polyp was sessile. The polyp was removed with a cold snare. Resection and retrieval were complete. The exam was otherwise without abnormality on direct and retroflexion views. Impression: - Diverticulosis in the recto-sigmoid colon and in the sigmoid colon. - One 9 mm polyp in the sigmoid colon, removed with a cold snare. Resected and retrieved. - The examination was otherwise normal on direct and retroflexion views. Recommendation: - Return patient to [facility] for ongoing care. - No repeat colonoscopy due to age. - Continue present medications. - Capsule endoscopy as an outpatient to look at the small bowel. Procedure Code(s): --- Professional --- 05023, Colonoscopy, flexible; with removal of tumor(s), polyp(s), or other lesion(s) by snare technique CPT copyright 2017 [employer]. All rights reserved. The codes documented in this report are preliminary and upon communications programmer review may be revised to meet current compliance requirements. Lon Navarro DO 11/19/2022 1:58:04 PM This report has been signed electronically. Number of Addenda: 0 Note Initiated On: 11/19/2022 1:20 PM
--- NOTE | 2022-11-19 13:59 | OP.CCLET_ITS ---
11/19/2022 Kiara Geronimo [address] [place] [address] Re : Colonoscopy procedure for Tracie Kiran Dear Dr. Geronimo This procedure was performed on Saturday, November 19, 2022. My impressions and recommendations are as follows: Impressions : - Diverticulosis in the recto-sigmoid colon and in the sigmoid colon. - One 9 mm polyp in the sigmoid colon, removed with a cold snare. Resected and retrieved. - The examination was otherwise normal on direct and retroflexion views. Recommendations : - [facility] patient to [facility] for [facility] care. - No repeat colonoscopy due to age. - Continue present medications. - Capsule endoscopy as an outpatient to look at the small bowel. My findings are described in the full procedure note, which is enclosed. If I can be of further assistance, please feel free to contact me at . Sincerely, Lon Navarro, 11/19/2022 1:58:04 PM This report has been signed electronically.
--- NOTE | 2022-11-19 19:22 | DCINST_ITS ---
Discharge Instructions Diet Discharge Diet: No restrictions Activity Discharge Activity: Return to Normal Activity and May Not Drive Weight Bearing Status: Weight bearing as tolerated Dressing / Incision Call your doctor if you observe: Fever of 101 or Higher, Coldness, Increased Pain, Numbness or Tingling, Change in Color, Inability to urinate, Inability to have a bowel movement, Using more than 1 pad per hour, Shortness of breath, Dizziness, Fainting spells, Swelling in the ankles, Chest pain, Prolonged hiccupping, Increased palpitations (irregular heartbeat) and Calf discomfort Follow Up Care When: IN 2 WEEKS Test Results: Test results from this visit will be discussed in further detail at your follow- up appointment, if applicable. Discharge Plan Admission Admit Date/Time: 11/18/22 21:21 Primary Reason for Your Visit: severe iron deficiency anemia Attending Provider: Dylon Newton Primary Care Provider: Kiara Geronimo Consulting Providers: Nahed Rose Discharge Orders/Prescriptions Prescriptions: New ferrous sulfate [FeroSul] 325 mg (65 mg iron) tablet 325 mg PO DAILY Qty: 30 2RF ascorbic acid (vitamin C) 500 mg tablet 500 mg PO DAILY Qty: 30 2RF pantoprazole [Protonix] 40 mg tablet,delayed release (DR/EC) 40 mg PO DAILY Qty: 30 1RF Continued vitamin B complex [B Complex 1] tablet 1 tab PO QDAY magnesium 200 mg tablet 200 mg PO DAILY cholecalciferol (vitamin D3) [Vitamin D3] 25 mcg (1,000 unit) Tablet 25 mcg PO DAILY brimonidine-timolol [Combigan] 0.2-0.5 % drops 1 drp EACH EYE BID Label Comments: INSTILL 1 DROP INTO EACH EYE TWICE DAILY Held aspirin 325 mg tablet 325 mg PO DAILY PRN (Reason: Pain) Hold Instructions: Hold for 1 week and if needed, consider baby enteric coated aspirin Referrals / Follow Up: Kiara Geronimo MD [Primary Care Provider] - Friend,DO Lon [Med Staff - Active Staff] - Within 2 Weeks (capsule endoscopy) Disposition Disposition (needs filled in before D/C Order can be placed): Home, Self Care
--- NOTE | 2022-11-19 19:33 | PCM.DC.SUM ---
Providers Date of Admission: 11/18/22 Date of Discharge: 11/19/22 Primary Care Physician: Dr. Kiara Geronimo MD Consultations 11/18/22 23:05 Consult: Gastroenterology Routine Consulting Provider: Serge [facility] Reason for Consult: Severe EMERGENT Consult: No MD Notified: Yes Date Notified: 11/18/22 Time Notified: 21:23 Method of Notification: ED Physician Initiated Reason For Visit: SEVERE ANEMIA Diagnosis Discharge Diagnosis (1) Acute anemia: Status: Acute Code(s): D64.9 - Anemia, unspecified (2) GIB (gastrointestinal bleeding): Status: Acute Code(s): K92.2 - Gastrointestinal hemorrhage, unspecified Plan 82-year-old female admitted with generalized weakness lightheadedness shortness of breath on exertion and abnormal lab consistent with severe anemia. No history of black or brown stool or melena. She had persistent nausea for last couple weeks. No vomiting. Acute anemia secondary to suspected GI bleed: Suspected lower GI bleed. Anemia work-up suggestive of iron deficiency anemia. Stool for occult blood negative. She never had colonoscopy but had EGD many years ago. Plan for EGD and colonoscopy. Gastroenterology saw the patient yesterday. Hemoglobin 6.5. INR normal. Liver chemistry total bilirubin normal, liver chemistry normal. Alkaline phosphatase normal. N.p.o. for the procedure. On IV fluid. 11/19: Patient had colonoscopy which reported as diverticulosis in the rectosigmoid and sigmoid colon. One 9 mm polyp in sigmoid colon removed with cold snare. Examination otherwise normal. No repeat colonoscopy due to age. EGD reported irregular Z-line which was biopsied. Nonobstructing Schatzki ring, dilated. Small hiatal hernia with normal stomach and normal D2. Reliability Technologist recommended capsule endoscopy as could not find cause for acute anemia. Possible middle GI bleed from small bowel. Patient is discharged on Protonix, ferrous sulfate and ascorbic acid. Iron deficiency anemia: The patient was admitted with hemoglobin 6.7, 6.5. 11/19: As mentioned above. Patient had 1 unit of PRBC transfusion and 1 unit of iron infusion. Repeat hemoglobin improved to 7.4 g. Glaucoma -Continue home eyedrops Spinal stenosis -As needed Tylenol for pain Tobacco abuse -Recommend cessation -Currently smokes 1/2 pack of cigarettes daily -Offered nicotine replacement patient deferred at this time DVT prophylaxis -Chemoprophylaxis contraindicated secondary to severe anemia and suspected GI bleed -SCDs CODE STATUS -Full code as reviewed prior to admission with the patient Patient wanted to go home after procedure in the evening. She did not want to wait for tomorrow. Discharge medication reconciliation done. Discharge follow-up instructions completed. Discharge process discussed with the patient and all questions were answered to patient's satisfaction. Total time spent, exact 35 minutes on discharge meds reconciliation, examination, coordination of care with nurses and ancillary staff, review of imaging and blood test and discussion with the patient on follow-up instructions. Microbiology Past 72 Hours 11/18/22 19:15 Stool Stool Occult Blood (NINA) - Final Laboratory Results 11/19/22 19:27: Hgb 7.4 L, Hct 26.4 L Medications at Discharge Home Medications magnesium 200 mg tablet 200 mg PO DAILY SUPPLEMENT 11/19/17 vitamin B complex (B Complex 1 tablet) 1 tab PO QDAY 11/19/17 aspirin 325 mg tablet 325 mg PO DAILY PRN Pain 03/20/22 brimonidine 0.2 %-timolol 0.5 % eye drops (Combigan) 1 drp EACH EYE BID . 11/18/22 cholecalciferol (vitamin D3) 25 mcg (1,000 unit) tablet (Vitamin D3) 25 mcg PO DAILY SUPPLEMENT 11/18/22 ascorbic acid (vitamin C) 500 mg tablet 500 mg PO DAILY #30 tabs 11/19/22 ferrous sulfate 325 mg (65 mg iron) tablet (FeroSul) 325 mg PO DAILY #30 tabs 11/19/22 pantoprazole 40 mg tablet,delayed release (Protonix) 40 mg PO DAILY #30 tabs 11/19/22 Physical Exam Narrative Please see progress note of the same day for physical exam. Weight / BMI Weight Weight: 146 lb Body Mass Index (BMI) 22.8 ABG / Lab / Microbiology Data Result Diagrams: 11/19/22 19:27 11/19/22 03:39 Laboratory: Laboratory Results - last 24 hr 11/18/22 17:23: Crossmatch See Detail 11/18/22 19:21: PT 12.2, INR 0.9 11/18/22 19:21: Total Bilirubin 0.20, Direct Bilirubin 0.06, AST 17, ALT 19, Alkaline Phosphatase 94, Total Protein 7.8, Albumin 3.5, Globulin 4.3 H 11/18/22 21:24: Hgb 6.9 L, Retic Count 2.21 H, Immature Retic Fraction 23.00 H, Retic Hgb Equivalent 16.6 L 11/18/22 21:24: Iron 12 L, TIBC 466 H, Iron Saturation 2.6 L, Ferritin 4 L 11/19/22 03:39: WBC 8.2, RBC 3.28 L, Hgb 6.5 L, Hct 23.5 L, MCV 71.6 L, MCH 19.8 L, MCHC 27.7 L, RDW Std Deviation 47.4 H, RDW Coeff of Hsay 18.3 H, Plt Count 355, MPV 9.0, Immature Gran % (Auto) 0.400, Neut % (Auto) 70.5 H, Lymph % (Auto) 14.9 L, Weber % (Auto) 11.4 H, Eos % (Auto) 2.3, Baso % (Auto) 0.5, Absolute Neuts (auto) 5.8, Absolute Lymphs (auto) 1.22, Nucleated RBC % 0 11/19/22 03:39: Sodium 139, Potassium 3.8, Chloride 109 H, Carbon Dioxide 26.0, Anion Gap 4 L, BUN 11, Creatinine 0.64, Estim Creat Clear Calc 42.91, Est GFR (MDRD) Af Amer 115, Est GFR (MDRD) Non-Af 95, BUN/Creatinine Ratio 17.2, Glucose 110 H, Calcium 8.8, Phosphorus 4.0, Magnesium 2.1, Total Bilirubin 0.20, AST 14 L, ALT 16, Alkaline Phosphatase 82, Total Protein 7.3, Albumin 3.4, Globulin 3.9, Albumin/Globulin Ratio 0.9 Microbiology: Microbiology 11/18/22 19:15 Stool Stool Occult Blood (NINA) - Final Radiography Diagnostic Testing: Radiology Impression Chest X-Ray 11/19/22 06:00 IMPRESSION: No radiographic evidence of acute cardiopulmonary disease. Electronically Signed: Anthony Mcbride MD at 6:16 EDT , D/C Instructions Discharge Diet: No restrictions Weight Bearing Status: Weight bearing as tolerated Call your doctor if you observe: Fever of 101 or Higher, Coldness, Increased Pain, Numbness or Tingling, Change in Color, Inability to urinate, Inability to have a bowel movement, Using more than 1 pad per hour, Shortness of breath, Dizziness, Fainting spells, Swelling in the ankles, Chest pain, Prolonged hiccupping, Increased palpitations (irregular heartbeat) and Calf discomfort When: IN 2 WEEKS Meaningful Use Info Meaningful Use Diagnoses (Choose all that apply): None applicable Discharge Plan Admission Admit Date/Time: 11/18/22 21:21 Primary Reason for Your Visit: severe iron deficiency anemia Attending Provider: Dylon Newton Primary Care Provider: Kiara Geronimo Consulting Providers: Nahed Rose Discharge Orders/Prescriptions Prescriptions: New ferrous sulfate [FeroSul] 325 mg (65 mg iron) tablet 325 mg PO DAILY Qty: 30 2RF ascorbic acid (vitamin C) 500 mg tablet 500 mg PO DAILY Qty: 30 2RF pantoprazole [Protonix] 40 mg tablet,delayed release (DR/EC) 40 mg PO DAILY Qty: 30 1RF Continued vitamin B complex [B Complex 1] tablet 1 tab PO QDAY magnesium 200 mg tablet 200 mg PO DAILY cholecalciferol (vitamin D3) [Vitamin D3] 25 mcg (1,000 unit) Tablet 25 mcg PO DAILY brimonidine-timolol [Combigan] 0.2-0.5 % drops 1 drp EACH EYE BID Label Comments: INSTILL 1 DROP INTO EACH EYE TWICE DAILY Held aspirin 325 mg tablet 325 mg PO DAILY PRN (Reason: Pain) Hold Instructions: Hold for 1 week and if needed, consider baby enteric coated aspirin Referrals / Follow Up: Kiara Geronimo MD [Primary Care Provider] - Lon Navarro DO [Med Staff - Active Staff] - Within 2 Weeks (capsule endoscopy) Disposition Disposition (needs filled in before D/C Order can be placed): Home, Self Care Charges/Coding Addendum Addendum: Patient was admitted with severe anemia 6.5 g and was thought probably due to GI bleed. Stool for occult blood was negative. At admission was thought that patient will require more than 2 midnight stays. Patient was admitted as inpatient but was discharged because of sooner recovery than expected at time of admission and patient wanted to go home after EGD and colonoscopy. Please cancel the billing charge of progress note same date. Visit Charges Inpatient E&M: 49542 Disch Hosp >30min
[2022-11-19 19:37] LABS: Hematocrit 26.4 % (37-47); Hemoglobin 7.4 g/dL (12.0-15.0)
== END 2022-11-19 20:55 | disposition home or self-care (01) | DRG 812 ==
LOC: ED 21:31 → MS3 22:09
PROVIDERS: Internal Medicine Gastroenterology; Admitting Provider Internal Medicine; Emergency Provider Student in an Organized Health Care Education/Training Program; PCP Family Medicine; Visit Provider Internal Medicine
PROC: 0DJD8ZZ Inspection of Lower Intestinal Tract, Via Natural or Artificial Opening Endoscopic (ICD-10-PCS; CPT 45378; principal; 2022-11-19 12:55)
DX: D50.9 Iron deficiency anemia, unspecified (principal); F17.210 Nicotine dependence, cigarettes, uncomplicated; K44.9 Diaphragmatic hernia without obstruction or gangrene; M48.00 Spinal stenosis, site unspecified; K63.5 Polyp of colon; K57.30 Diverticulosis of large intestine without perforation or abscess without bleeding; H40.9 Unspecified glaucoma; Z79.82 Long term (current) use of aspirin
CPT/HCPCS: 36415; 71045; 71046; 80048; 80053; 80076; 82274; 82728; 83540; 83550; 83735; 84100; 84443; 85014; 85018; 85025; 85045; 85610; 85652; 86850; 86900; 86901; 86920; 86922; 88305; 88313; 93005; 94668; 99283; J7050; J7120; P9016; A4216; J2405; J2916

== ENCOUNTER → 2022-11-18 | Outpatient (CLI) | payer MEDICARE, OTHER, SELFPAY ==
--- NOTE | 2022-11-18 11:55 | RAD_ITS ---
STUDY: X-RAY CHEST REASON FOR EXAM: Female, 82 years old. Chest pain/pressure TECHNIQUE: PA and lateral views of the chest. COMPARISON: None. FINDINGS: The lungs are clear and expanded. There is no demonstrated pleural abnormality. Normal size heart. Normal mediastinum and karuna. Normal visualized pulmonary arteries. Normal visualized aortic arch and descending thoracic aorta. There are diffuse degenerative changes of the visualized thoracic spine. Normal visualized ribs, clavicles, and shoulders. There is no demonstrated abnormality of the visualized soft tissue structures of the upper abdomen. RAD/Chest PA and Lateral IMPRESSION: No acute pulmonary process Electronically Signed: Erlin Hua MD at 12:10 EDT ,
[2022-11-18 15:00] LABS: Erythrocyte Sedimentation Rate 48 mm/hr (0-30)
[2022-11-18 15:03] LABS: Absolute Lymphocyte Count 1.51 X10^3/uL (0.83-4.51); Absolute Neutrophil Count 5.1 X10^3/uL (2.0-7.7); Basophil# 0.04 X10^3/uL; Basophil% 0.5 % (0-1); Eosinophil# 0.14 X10^3/uL; Eosinophils% 1.8 % (0-5); Hematocrit 25.1 % (37-47); Hemoglobin 6.7 g/dL (12.0-15.0); Lymphocyte # 1.51 X10^3/ul (0.83-4.51); Lymphocyte % 19.7 % (19-41); Mean Corp Hgb Conc 26.7 g/dL (32-36); Mean Corpuscular Hgb 19.3 pg (27.0-32.0); Mean Corpuscular Volume 72.1 fL (81-99); Mean Platelet Vol. 10.3 fl (6.2-12.0); Monocyte# 0.83 X10^3/uL; Monocyte% 10.8 % (0-10); NRBC Flagged by Analyzer 0.4 % (0-5); Neutrophil # 5.12 X10^3/uL (2.7-7.7); Neutrophil % 66.9 % (47-70); Platelet Count 408 K/mm3 (150-450); RBC Distribution Width CV 18.3 % (11.6-14.6); RBC Distribution Width SD 47.9 fl (35.1-43.9); Red Blood Count 3.48 M/mm3 (4.2-5.4); White Blood Count 7.7 K/mm3 (4.4-11.0)
[2022-11-18 15:51] LABS: ALB/GLOB Ratio 0.9 RATIO (0.9-2.4); AST(SGOT) 19 U/L (15-37); Alanine Aminotransfer ALT/SGPT 20 U/L (13-56); Albumin, Serum 3.6 g/dL (3.2-5.0); Alkaline Phosphatase 88 U/L (45-117); Anion Gap 3 (5-15); BUN 13 mg/dL (7-18); BUN/Creat Ratio 18.4 RATIO (10-20); Chloride 107 mmol/L (98-107); Creatinine, Serum 0.71 mg/dL (0.55-1.02); EST Glomerular Filtration Rate 84 mL/min (>60); Est Glom Filt Rate - Afr Amer 102 mL/min (>60); Globulin 3.9 g/dL (2.2-4.2); Glucose 93 mg/dL (74-106); Potassium 4.3 mmol/L (3.5-5.1); Protein, Total 7.5 g/dL (6.4-8.2); Sodium Level 136 mmol/L (136-145)
== END | disposition home or self-care (01) ==
PROVIDERS: PCP Family Medicine; Referring Provider Family Medicine; Visit Provider Family Medicine
DX: R53.81 Other malaise (principal); J44.9 Chronic obstructive pulmonary disease, unspecified; R53.83 Other fatigue
CPT/HCPCS: 36415; 71046; 80053; 84443; 85025; 85652

== ENCOUNTER → 2022-11-27 | Outpatient (CLI) | payer MEDICARE, OTHER, SELFPAY ==
[2022-11-27 17:37] LABS: Absolute Lymphocyte Count 2.02 X10^3/uL (0.83-4.51); Absolute Neutrophil Count 4.9 X10^3/uL (2.0-7.7); Basophil# 0.04 X10^3/uL; Basophil% 0.5 % (0-1); Eosinophil# 0.19 X10^3/uL; Eosinophils% 2.4 % (0-5); Hematocrit 34.3 % (37-47); Lymphocyte # 2.02 X10^3/ul (0.83-4.51); Lymphocyte % 25.9 % (19-41); Mean Corp Hgb Conc 29.2 g/dL (32-36); Mean Corpuscular Hgb 23.3 pg (27.0-32.0); Mean Corpuscular Volume 79.8 fL (81-99); Mean Platelet Vol. 9.7 fl (6.2-12.0); Monocyte# 0.69 X10^3/uL; Monocyte% 8.8 % (0-10); NRBC Flagged by Analyzer 0 % (0-5); Neutrophil # 4.85 X10^3/uL (2.7-7.7); Neutrophil % 62.1 % (47-70); POSITIVE MORPHOLOGY YES; Platelet Count 383 K/mm3 (150-450); RBC Distribution Width CV 28.3 % (11.6-14.6); RBC Distribution Width SD 80.7 fl (35.1-43.9); White Blood Count 7.8 K/mm3 (4.4-11.0)
[2022-11-27 18:08] LABS: Differential Indicated SCAN CRITERIA MET
[2022-11-27 18:09] LABS: Anisocytosis 1+; Platelet Estimate ADEQUATE (ADEQ); Red Cell Morphology N CHROM NORMAL (NORM C&C)
[2022-11-27 18:10] LABS: Hypochromasia RARE; Microcytosis 1+; Ovalocyte RARE
== END | disposition home or self-care (01) ==
LOC: MTLAB 17:02
PROVIDERS: PCP Family Medicine; Referring Provider Family Medicine; Visit Provider Family Medicine
DX: D64.9 Anemia, unspecified (principal)
CPT/HCPCS: 36415; 85025

== ENCOUNTER → 2024-02-16 | Outpatient (CLI) | payer MEDICARE, OTHER, SELFPAY ==
[2024-02-16 17:49] LABS: Absolute Neutrophil Count 3.4 X10^3/uL (2.0-7.7); Basophil# 0.03 X10^3/uL; Basophil% 0.5 % (0-1); Eosinophil# 0.13 X10^3/uL; Eosinophils% 2.2 % (0-5); Hematocrit 42.8 % (37-47); Hemoglobin 13.4 g/dL (12.0-15.0); Lymphocyte % 30.5 % (19-41); Mean Corp Hgb Conc 31.3 g/dL (32-36); Mean Corpuscular Hgb 28.3 pg (27.0-32.0); Mean Corpuscular Volume 90.5 fL (81-99); Monocyte# 0.56 X10^3/uL; Monocyte% 9.5 % (0-10); NRBC Flagged by Analyzer 0 % (0-5); Neutrophil # 3.36 X10^3/uL (2.7-7.7); Neutrophil % 56.8 % (47-70); Platelet Count 316 K/mm3 (150-450); RBC Distribution Width CV 15.3 % (11.6-14.6); RBC Distribution Width SD 50.5 fl (35.1-43.9); Red Blood Count 4.73 M/mm3 (4.2-5.4); White Blood Count 5.9 K/mm3 (4.4-11.0)
[2024-02-16 18:15] LABS: Iron 77 ug/dL (50-170)
== END | disposition home or self-care (01) ==
LOC: MFPLAB 15:43
PROVIDERS: PCP Family Medicine; Visit Provider Family Medicine
DX: Z13.220 Encounter for screening for lipoid disorders (principal); E61.1 Iron deficiency
CPT/HCPCS: 36415; 83540; 85025

== ENCOUNTER → 2025-03-18 | Outpatient (CLI) | payer MEDICARE, OTHER, SELFPAY ==
--- OUTSIDE RECORDS SUMMARY | 2025-03-18 15:19 | XMS RPT_ITS | CCD ---
Author Organization [facility] Care Team Providers Care Loan Documentation Specialist Name Role Phone Unavailable Unavailable Unavailable DILL, ANGELINE Unavailable Unavailable DILL, ANGELINE Unavailable Unavailable DILL, ANGELINE Unavailable Unavailable DILL, ANGELINE Unavailable Unavailable DILL, ANGELINE Unavailable Unavailable DILL, ANGELINE Unavailable Unavailable SAMANTHA CAROLINA Admitting Unavailable SAMANTHA CAROLINA Attending Unavailable Dr. Kiara Geronimo Primary Care Provider Dr. Jose Willingham Emergency Provider [phone] Dr. Nahed Rose Admit Provider Dr. Nahed Rose Attending Provider Dr. Nahed Rose Other Provider Dr. Dylon Newton Other Provider [phone] Friend, Dr. Forrest Attending Provider Dr. Dylon Newton Attending Provider [phone] Pj Tabor Attending Provider Dr. Nahed Rose Referring Provider Kiara Geronimo Attending Unavailable Kiara Geronimo Primary Care Unavailable Allergies Allergy Classification Reported Allergen(s) Allergy Type Date of Onset Reaction(s) Facility (7 sources) Meperidine; Translations: [MEPERIDINE] Drug Allergy 08-06-2018 Unknown [facility] Other [facility] Medications Current Medications Medication Drug Class(es) Dates Sig (Normalized) Sig (Original) ascorbic acid 500 mg oral tablet (2 sources) Vitamin C Start: 11-19-2022 take 500 mg by mouth once daily Ascorbic Acid (Vitamin C) Active 500 MG PO DAILY November 19, 2022 12:00am aspirin 325 mg oral tablet (3 sources) Platelet Aggregation Inhibitor, Nonsteroidal Anti-inflammatory Drug Start: 03-20-2022 take 325 mg by mouth once daily Aspirin Active 325 MG PO DAILY March 20, 2022 12:00am On Hold: Hold for 1 week and if needed, consider baby enteric coated aspirin Brimonidine-Timolol (Combigan) 0.2-0.5 % drops (3 sources) Start: 11-18-2022 take 0.2-0.5 drop(s) into the eye(s) twice daily Brimonidine-Timolol (Combigan) 0.2-0.5 % drops Active 1 DRP EACH EYE TWICE A DAY November 18, 2022 12:00am cholecalciferol 0.025 mg oral tablet (3 sources) Vitamin D Start: 11-18-2022 take 1 tablet by mouth once daily Cholecalciferol (Vitamin D3) (Vitamin D3) 25 mcg (1,000 unit) Tablet Active 25 MCG PO DAILY November 18, 2022 12:00am ferrous sulfate 325 mg oral tablet (2 sources) Start: 11-19-2022 take 1 tablet by mouth once daily Ferrous Sulfate (Ferosul) 325 mg (65 mg iron) tablet Active 325 MG PO DAILY November 19, 2022 12:00am Magnesium (5 sources) Start: 11-19-2017 take 200 mg by mouth once daily Magnesium Active 200 MG PO DAILY November 19, 2017 12:00am Start: 11-19-2017 Magnesium Acti ve PO November 19, 2017 12:00am pantoprazole 40 mg delayed release oral tablet (2 sources) Proton Pump Inhibitor Start: 11-19-2022 take 1 tablet by mouth once daily Pantoprazole (Protonix) 40 mg tablet,delayed release (DR/EC) Active 40 MG PO DAILY November 19, 2022 12:00am Vitamin B Complex (B Complex 1) tablet (5 sources) Start: 11-19-2017 take 1 tablet by mouth once daily Vitamin B Complex (B Complex 1) tablet Active 1 TABLET PO daily November 19, 2017 12:00am Completed/Discontinued Medications Medication Drug Class(es) Dates Sig (Normalized) Sig (Original) gabapentin 300 mg oral capsule (5 sources) Anti-epileptic Agent Start: 12-30-2017 End: 03-20-2022 take 300 mg by mouth three times daily Gabapentin Discontinued 300 MG PO THREE TIMES A DAY December 30, 2017 12:00am March 20, 2022 12:54pm Problems Active Problems Problem Classification Problem Date Documented Da te Episodic/Chronic Deficiency and other anemia (3 sources) Anemia; Translations: [Anemia, unspecified] 11-18-2022 Episodic Deficiency and other anemia (2 sources) Anemia, unspecified; Translations: [Anemia, unspecified] 11-18-2022 Episodic Gastrointestinal hemorrhage (5 sources) Gastrointestinal hemorrhage; Translations: [Gastrointestinal hemorrhage, unspecified] 11-18-2022 Episodic Nutritional deficiencies (3 sources) Iron deficiency; Translations: [Iron deficiency] 11-18-2022 Episodic Other screening for suspected conditions (not mental disorders or infectious disease) (1 source) Encounter for screening for lipoid disorders; Translations: [Encounter for screening for lipoid disorders] Onset: 4 Episodic Spondylosis; intervertebral disc disorders; other back problems (5 sources) Other intervertebral disc degeneration, lumbosacral region; Translations: [Spondylosis without myelopathy or radiculopathy, lumbosacral region] Onset: 9 11-18-2022 Chronic Spondylosis; intervertebral disc disorders; other back problems (3 sources) Spinal stenosis of lumbar region; Translations: [Radiculopathy, lumbosacral region] Onset: 8 06-25-2018 Episodic Spondylosis; intervertebral disc disorders; other back problems (1 source) Spinal stenosis, lumbar region without neurogenic claudication; Translations: [Spinal stenosis, lumbar region without neurogenic claudication] Onset: 9 Unclassified (1 source) Spinal stenosis, lumbar region without neurogenic claudication / M48.061(ICD-10) Onset: 9 Past or Other Problems Problem Classification Problem Date Documented Da te Episodic/Chronic Unclassified (1 source) Spinal stenosis, lumbar region without neurogenic claudication; Translations: [Spinal stenosis, lumbar region without neurogenic claudication] Onset: 08-25-2018 Results Test Name Value Interpretation Reference Range Facility CBC W/Diff, Automatedon 07-0 Absolute Lymph 1.80 X10 3/uL Normal 0.83-4.51 [facility] Comment on above: Order Comment: Order Date: 02/16/24 Order Info: 0184-1 - CBCD Performed By: #### L 100.0100, [id number] #### [facility] [address] [place], [address] Absolute Neut 3.4 X10 3/uL Normal 2.0-7.7 [facility] Comment on above: Order Comment: Order Date: 02/16/24 Order Info: 0184-1 - CBCD Performed By: #### L 100.0100, [id number] #### [facility] [address] [place], [address] Basophils/100 WBC (Bld) 0.5 % Normal 0-1 [facility] Comment on above: Order Comment: Order Date: 02/16/24 Order Info: 0184-1 - CBCD Performed By: #### L 100.0100, [id number] #### [facility] [address] [place], [address] Eosinophils/100 WBC (Bld) 2.2 % Normal 0-5 [facility] Comment on above: Order Comment: Order Date: 02/16/24 Order Info: 018-1 - CBCD Performed By: #### L 100.0100, [id number] #### [facility] [address] [place], [address] Erythrocyte distribution width (RBC) [Ratio] 15.3 % High 11.6-14.6 [facility] Comment on above: Order Comment: Order Date: 02/16/24 Order Info: 0184-1 - CBCD Performed By: #### L 100.0100, [id number] #### [facility] [address] [place], [address] Hematocrit (Bld) [Volume fraction] 42.8 % Normal 37-47 [facility] Comment on above: Order Comment: Order Date: 02/16/24 Order Info: 0184-1 - CBCD Performed By: #### L 100.0100, [id number] #### [facility] [address] [place], [address] Hemoglobin (Bld) [Mass/Vol] 13.4 g/dL Normal 12.0-15.0 [facility] Comment on above: Order Comment: Order Date: 02/16/24 Order Info: 0184- - CBCD Performed By: #### L 100.0100, [id number] #### [facility] [address] [place], [address] IG% 0.500 Normal 0.0-0.9 [facility] Comment on above: Order Comment: Order Date: 02/16/24 Order Info: 018- - CBCD Result Comment: IG% - Immature Granulocytes (promyelocytes, myelocytes and metamyelocytes) > 1% indicates that a LEFT SHIFT is Present. Performed By: #### L 100.0100, [id number] #### [facility] [address] [place], [address] Lymphocytes/100 WBC (Bld) 30.5 % Normal 19-41 [facility] Comment on above: Order Comment: Order Date: 02/16/24 Order Info: 018- - CBCD Performed By: #### L 100.0100, [id number] #### [facility] [address] [place], [address] MCH (RBC) [Entitic mass] 28.3 pg Normal 27.0-32.0 [facility] Comment on above: Order Comment: Order Date: 02/16/24 Order Info: 0184- - CBCD Performed By: #### L 100.0100, [id number] #### [facility] [address] [place], [address] MCHC (RBC) [Mass/Vol] 31.3 g/dL Low 32-36 [facility] Comment on above: Order Comment: Order Date: 02/16/24 Order Info: 0184- - CBCD Performed By: #### L 100.0100, [id number] #### [facility] [address] [place], [address] MCV (RBC) [Entitic vol] 90.5 fL Normal 81-99 [facility] Comment on above: Order Comment: Order Date: 02/16/24 Order Info: 0184-1 - CBCD Performed By: #### L 100.0100, [id number] #### [facility] [address] [place], [address] Monocytes/100 WBC (Bld) 9.5 % Normal 0-10 [facility] Comment on above: Order Comment: Order Date: 02/16/24 Order Info: 018-1 - CBCD Performed By: #### L 100.0100, [id number] #### [facility] [address] [place], [address] Neutrophils/100 WBC (Bld) 56.8 % Normal 47-70 [facility] Comment on above: Order Comment: Order Date: 02/16/24 Order Info: 018- - CBCD Performed By: #### L 100.0100, [id number] #### [facility] [address] [place], [address] Nucleated RBC (Bld) [#/Vol] 0 10*3/uL Normal 0-5 [facility] Comment on above: Order Comment: Order Date: 02/16/24 Order Info: 0184-1 - CBCD Performed By: #### L 100.0100, [id number] #### [facility] [address] [place], [address] Platelet mean volume (Bld) [Entitic vol] 11.0 fL Normal 6.2-12.0 [facility] Comment on above: Order Comment: Order Date: 02/16/24 Order Info: 0184-1 - CBCD Performed By: #### L 100.0100, [id number] #### [facility] [address] [place], [address] Platelets (Bld) [#/Vol] 316 10*3/uL Normal 150-450 [facility] Comment on above: Order Comment: Order Date: 02/16/24 Order Info: 018-1 - CBCD Performed By: #### L 100.0100, [id number] #### [facility] [address] [place], [address] RBC (Bld) [#/Vol] 4.73 10*6/uL Normal 4.2-5.4 [facility] Comment on above: Order Comment: Order Date: 02/16/24 Order Info: 018- - CBCD Performed By: #### L 100.0100, [id number] #### [facility] [address] [place], [address] RDW SD 50.5 fl High 35.1-43.9 [facility] Comment on above: Order Comment: Order Date: 02/16/24 Order Info: 0184- - CBCD Performed By: #### L 100.0100, [id number] #### [facility] [address] [place], [address] WBC (Bld) [#/Vol] 5.9 10*3/uL Normal 4.4-11.0 [facility] Comment on above: Order Comment: Order Date: 02/16/24 Order Info: 0184- - CBCD Performed By: #### L 100.0100, [id number] #### [facility] [address] [place], [address] Ironon 02-16-2024 Iron [Mass/Vol] 77 ug/dL Normal 50-170 [facility] Comment on above: Order Comment: Order Date: 02/16/24 Order Info: [id number] - LIPID Order Info: 2498-4 - FE Performed By: #### L 100.0100, [id number] #### [facility] [address] [place], [address] Absolute lymphocyte countOrd ered By: Dr. Geronimo on 11-27-2022 Lymphocytes Auto (Unsp spec) [#/Vol] 2.02 10*3/uL 0.83-4.51 [facility] Basophil percentageOrdered B y: Dr. Geronimo on 11-27-2022 Basophils/100 WBC (Bld) 0.5 % 0-1 [facility] Eosinophils/100 WBC (Bld) 2.4 % 0-5 [facility] Neutrophils (Bld) [#/Vol] 4.9 10*3/uL 2.0-7.7 [facility] Neutrophils/100 WBC (Bld) 62.1 % 47-70 [facility] WBC (Bld) [#/Vol] 7.8 10*3/uL 4.4-11.0 [facility] Blood erythrocytes count (nu mber/volume)Ordered By: Dr. Geronimo on 11-27-2022 RBC (Bld) [#/Vol] 4.30 10*6/uL 4.2-5.4 [facility] Blood hemoglobin measurement (mass/volume)Ordered By: Dr. Geronimo on 11-27-2022 Hemoglobin (Bld) [Mass/Vol] 10.0 g/dL 12.0-15.0 [facility] Blood lymphocytes/100 leukoc ytesOrdered By: Dr. Geronimo on 11-27-2022 Lymphocytes/100 WBC (Bld) 25.9 % 19-41 [facility] Blood monocytes/100 leukocyt esOrdered By: Dr. Geronimo on 11-27-2022 Monocytes/100 WBC (Bld) 8.8 % 0-10 [facility] Blood platelet adequacy dete ction by light microscopyOrdered By: Dr. Geronimo on 11-27-2022 Platelets LM Ql (Bld) ADEQUATE ADEQ [facility] Blood platelet mean volumeOr dered By: Dr. Geronimo on 11-27-2022 Platelet mean volume (Bld) [Entitic vol] 9.7 fL 6.2-12.0 [facility] Determination of erythrocyte mean corpuscular volume (MCV)Ordered By: Dr. Geronimo on 11-27-2022 MCV (RBC) [Entitic vol] 79.8 fL 81-99 [facility] Hematocrit Auto (Bld) [Volum e fraction]Ordered By: Dr. Geronimo on 11-27-2022 Hematocrit (Bld) [Volume fraction] 34.3 % 37-47 [facility] Hypochromatic red blood cell detectionOrdered By: Dr. Geronimo on 11-27-2022 Hypochromia Ql (Bld) RARE [facility] - Hematology and Cell countsOrdered By: Dr. Geronimo on 11-27-2022 Anisocytosis Ql (Bld) 1+ [facility] Erythrocyte distribution width (RBC) [Entitic vol] 80.7 fL 35.1-43.9 [facility] Erythrocyte distribution width (RBC) [Ratio] 28.3 % 11.6-14.6 [facility] Immature granulocytes/100 WBC (Bld) 0.300 % 0.0-0.9 [facility] Comment on above: IG% - Immature Granu locytes (promyelocytes, myelocytes and metamyelocytes) > 1% indicates that a LEFT SHIFT is Present. MCH (RBC) [Entitic mass] 23.3 pg 27.0-32.0 [facility] Nucleated RBC/100 WBC (Bld) [Ratio] 0 % 0-5 [facility] MCHC Auto (RBC) [Mass/Vol]Or dered By: Dr. Geronimo on 11-27-2022 MCHC (RBC) [Mass/Vol] 29.2 g/dL 32-36 [facility] Ovalocyte detectionOrdered B y: Dr. Geronimo on 11-27-2022 Ovalocytes LM Ql (Bld) [facility] Platelets bldOrdered By: Dr. Geronimo on 11-27-2022 Platelets (Bld) [#/Vol] 383 10*3/uL 150-450 [facility] RBC morphologyOrdered By: Dr Jefe Geronimo on 11-27-2022 RBC morphology finding Nom (Bld) N CHROM NORMAL NORM C&C [facility] Thin prep Papanicolaou smear with manual screeningOrdered By: Dr. Geronimo on 11-27-2022 Thin prep Papanicolaou smear with manual screening 1+ [facility] Absolute lymphocyte countOrd ered By: Dr. Rose on 11-19-2022 Lymphocytes Auto (Unsp spec) [#/Vol] 1.22 10*3/uL 0.83-4.51 [facility] Basophil percentageOrdered B y: Dr. Rose on 11-19-2022 Basophil percentage 4.0 mg/dL 2.5-4.9 [facility] Basophils/100 WBC (Bld) 0.5 % 0-1 [facility] Bilirubin [Mass/Vol] 0.20 mg/dL 0.20-1.00 [facility] Comment on above: For patients on eltr ombopag therapy, use of [place] TBIL is not recommended. Chloride [Moles/Vol] 109 mmol/L 98-107 [facility] Eosinophils/100 WBC (Bld) 2.3 % 0-5 [facility] Glucose [Mass/Vol] 110 mg/dL 74-106 [facility] Comment on above: Fasting Glucose resu lt from 100 to 125 mg/dL suggests IMPAIRED HOMEOSTASIS per A.D.A. criteria. Neutrophils (Bld) [#/Vol] 5.8 10*3/uL 2.0-7.7 [facility] Neutrophils/100 WBC (Bld) 70.5 % 47-70 [facility] Potassium [Moles/Vol] 3.8 mmol/L 3.5-5.1 [facility] Protein [Mass/Vol] 7.3 g/dL 6.4-8.2 [facility] Sodium [Moles/Vol] 139 mmol/L 136-145 [facility] WBC (Bld) [#/Vol] 8.2 10*3/uL 4.4-11.0 [facility] Blood erythrocytes count (nu mber/volume)Ordered By: Dr. Rose on 11-19-2022 RBC (Bld) [#/Vol] 3.28 10*6/uL 4.2-5.4 [facility] Blood hemoglobin measurement (mass/volume)Ordered By: Dr. Newton on 11-19-2022 Hemoglobin (Bld) [Mass/Vol] 7.4 g/dL 12.0-15.0 [facility] Blood lymphocytes/100 leukoc ytesOrdered By: Dr. Rose on 11-19-2022 Lymphocytes/100 WBC (Bld) 14.9 % 19-41 [facility] Blood monocytes/100 leukocyt esOrdered By: Dr. Rose on 11-19-2022 Monocytes/100 WBC (Bld) 11.4 % 0-10 [facility] Blood platelet mean volumeOr dered By: Dr. Rose on 11-19-2022 Platelet mean volume (Bld) [Entitic vol] 9.0 fL 6.2-12.0 [facility] Determination of erythrocyte mean corpuscular volume (MCV)Ordered By: Dr. Rose on 11-19-2022 MCV (RBC) [Entitic vol] 71.6 fL 81-99 [facility] Hematocrit Auto (Bld) [Volum e fraction]Ordered By: Dr. Newton on 11-19-2022 Hematocrit (Bld) [Volume fraction] 26.4 % 37-47 [facility] - Chemistry and C hemistry - challengeOrdered By: Dr. Rose on 11-19-2022 ALP [Catalytic activity/Vol] 82 U/L 45-117 [facility] ALT [Catalytic activity/Vol] 16 U/L 13-56 [facility] CO2 [Moles/Vol] 26.0 mmol/L 21.0-32.0 [facility] Globulin (S) [Mass/Vol] 3.9 g/dL 2.2-4.2 [facility] Magnesium [Mass/Vol] 2.1 mg/dL 1.6-2.6 [facility] Urea nitrogen/Creatinine [Mass ratio] 17.2 mg/mg 10-20 [facility] - Hematology and Cell countsOrdered By: Dr. Rose on 11-19-2022 Erythrocyte distribution width (RBC) [Entitic vol] 47.4 fL 35.1-43.9 [facility] Erythrocyte distribution width (RBC) [Ratio] 18.3 % 11.6-14.6 [facility] Immature granulocytes/100 WBC (Bld) 0.400 % 0.0-0.9 [facility] Comment on above: IG% - Immature Granu locytes (promyelocytes, myelocytes and metamyelocytes) > 1% indicates that a LEFT SHIFT is Present. MCH (RBC) [Entitic mass] 19.8 pg 27.0-32.0 [facility] Nucleated RBC/100 WBC (Bld) [Ratio] 0 % 0-5 [facility] MCHC Auto (RBC) [Mass/Vol]Or dered By: Dr. Rose on 11-19-2022 MCHC (RBC) [Mass/Vol] 27.7 g/dL 32-36 [facility] No Panel InformationOrdered By: Dr. Rsoe on 11-19-2022 Estimated Creatinine Clearance Calc 42.91 ml/min [facility] Estimated GFR (MDRD) Amer 115 mL/min >60 [facility] Comment on above: GFR Calc Estimated GFR (MDRD) Non-Af Amer 95 mL/min >60 [facility] Comment on above: Non- GFR Calc Platelets bldOrdered By: Dr. Rose on 11-19-2022 Platelets (Bld) [#/Vol] 355 10*3/uL 150-450 [facility] Serum or plasma albumin snow urement (mass/volume)Ordered By: Dr. Rose on 11-19-2022 Albumin [Mass/Vol] 3.4 g/dL 3.2-5.0 [facility] Serum or plasma albumin/glob ulin mass ratioOrdered By: Dr. Rose on 11-19-2022 Albumin/Globulin [Mass ratio] 0.9 {ratio} 0.9-2.4 [facility] Serum or plasma calcium snow urement (mass/volume)Ordered By: Dr. Rose on 11-19-2022 Calcium [Mass/Vol] 8.8 mg/dL 8.5-10.1 [facility] Serum or plasma creatinine m easurement (mass/volume)Ordered By: Dr. Rose on 11-19-2022 Creatinine [Mass/Vol] 0.64 mg/dL 0.55-1.02 [facility] Comment on above: The validity of the calculated GFR & GFRAA in patients over 70 years has not been determined. Clinical correlation is essential. Serum or plasma urea nitroge n measurement (mass/volume)Ordered By: Dr. Rose on 11-19-2022 Urea nitrogen [Mass/Vol] 11 mg/dL 7-18 [facility] Thin prep Papanicolaou smear with manual screeningOrdered By: Dr. Rose on 11-19-2022 Thin prep Papanicolaou smear with manual screening 14 U/L 15-37 [facility] Thin prep Papanicolaou smear with manual screening 4 5-15 [facility] Absolute lymphocyte countOrd ered By: ED PROVIDER on 11-18-2022 Lymphocytes Auto (Unsp spec) [#/Vol] 1.90 10*3/uL 0.83-4.51 [facility] Absolute lymphocyte countOrd ered By: Dr. Geronimo on 11-18-2022 Lymphocytes Auto (Unsp spec) [#/Vol] 1.51 10*3/uL 0.83-4.51 [facility] Basophil percentageOrdered B y: Dr. Willingham on 11-18-2022 Bilirubin [Mass/Vol] 0.20 mg/dL 0.20-1.00 [facility] Comment on above: For patients on eltr ombopag therapy, use of [place] TBIL is not recommended. Protein [Mass/Vol] 7.8 g/dL 6.4-8.2 [facility] Basophil percentageOrdered B y: ED PROVIDER on 11-18-2022 Chloride [Moles/Vol] 108 mmol/L 98-107 [facility] Glucose [Mass/Vol] 100 mg/dL 74-106 [facility] Comment on above: Fasting Glucose resu lt from 100 to 125 mg/dL suggests IMPAIRED HOMEOSTASIS per A.D.A. criteria. Potassium [Moles/Vol] 3.9 mmol/L 3.5-5.1 [facility] Sodium [Moles/Vol] 138 mmol/L 136-145 [facility] Basophils/100 WBC (Bld) 0.7 % 0-1 [facility] Eosinophils/100 WBC (Bld) 2.5 % 0-5 [facility] Neutrophils (Bld) [#/Vol] 4.7 10*3/uL 2.0-7.7 [facility] Neutrophils/100 WBC (Bld) 61.0 % 47-70 [facility] WBC (Bld) [#/Vol] 7.7 10*3/uL 4.4-11.0 [facility] Basophil percentageOrdered B y: Dr. Geronimo on 11-18-2022 Basophils/100 WBC (Bld) 0.5 % 0-1 [facility] Bilirubin [Mass/Vol] 0.20 mg/dL 0.20-1.00 [facility] Comment on above: For patients on eltr ombopag therapy, use of [place] TBIL is not recommended. Chloride [Moles/Vol] 107 mmol/L 98-107 [facility] Eosinophils/100 WBC (Bld) 1.8 % 0-5 [facility] Glucose [Mass/Vol] 93 mg/dL 74-106 [facility] Neutrophils (Bld) [#/Vol] 5.1 10*3/uL 2.0-7.7 [facility] Neutrophils/100 WBC (Bld) 66.9 % 47-70 [facility] Potassium [Moles/Vol] 4.3 mmol/L 3.5-5.1 [facility] Protein [Mass/Vol] 7.5 g/dL 6.4-8.2 [facility] Sodium [Moles/Vol] 136 mmol/L 136-145 [facility] WBC (Bld) [#/Vol] 7.7 10*3/uL 4.4-11.0 [facility] Blood erythrocytes count (nu mber/volume)Ordered By: ED PROVIDER on 11-18-2022 RBC (Bld) [#/Vol] 3.24 10*6/uL 4.2-5.4 [facility] Blood erythrocytes count (nu mber/volume)Ordered By: Dr. Geronimo on 11-18-2022 RBC (Bld) [#/Vol] 3.48 10*6/uL 4.2-5.4 [facility] Blood hemoglobin measurement (mass/volume)Ordered By: Dr. Rose on 11-18-2022 Hemoglobin (Bld) [Mass/Vol] 6.9 g/dL 12.0-15.0 [facility] Blood hemoglobin measurement (mass/volume)Ordered By: Dr. Geronimo on 11-18-2022 Hemoglobin (Bld) [Mass/Vol] 6.7 g/dL 12.0-15.0 [facility] Blood lymphocytes/100 leukoc ytesOrdered By: ED PROVIDER on 11-18-2022 Lymphocytes/100 WBC (Bld) 24.8 % 19-41 [facility] Blood lymphocytes/100 leukoc ytesOrdered By: Dr. Geronimo on 11-18-2022 Lymphocytes/100 WBC (Bld) 19.7 % 19-41 [facility] Blood monocytes/100 leukocyt esOrdered By: ED PROVIDER on 11-18-2022 Monocytes/100 WBC (Bld) 10.6 % 0-10 [facility] Blood monocytes/100 leukocyt esOrdered By: Dr. Geronimo on 11-18-2022 Monocytes/100 WBC (Bld) 10.8 % 0-10 [facility] Blood platelet mean volumeOr dered By: ED PROVIDER on 11-18-2022 Platelet mean volume (Bld) [Entitic vol] 10.5 fL 6.2-12.0 [facility] Blood platelet mean volumeOr dered By: Dr. Geronimo on 11-18-2022 Platelet mean volume (Bld) [Entitic vol] 10.3 fL 6.2-12.0 [facility] Determination of erythrocyte mean corpuscular volume (MCV)Ordered By: ED PROVIDER on 11-18-2022 MCV (RBC) [Entitic vol] 72.5 fL 81-99 [facility] Determination of erythrocyte mean corpuscular volume (MCV)Ordered By: Dr. Geronimo on 11-18-2022 MCV (RBC) [Entitic vol] 72.1 fL 81-99 [facility] Direct bilirubinOrdered By: Dr. Willingham on 11-18-2022 Bilirubin.direct [Mass/Vol] 0.06 mg/dL 0.00-0.30 [facility] Erythrocyte sedimentation ra teOrdered By: Dr. Geronimo on 11-18-2022 ESR (Bld) [Velocity] 48 mm/h 0-30 [facility] Hematocrit Auto (Bld) [Volum e fraction]Ordered By: ED PROVIDER on 11-18-2022 Hematocrit (Bld) [Volume fraction] 23.5 % 37-47 [facility] Hematocrit Auto (Bld) [Volum e fraction]Ordered By: Dr. Geronimo on 11-18-2022 Hematocrit (Bld) [Volume fraction] 25.1 % 37-47 [facility] Hemoglobin in reticulocytes (mass per reticulocyte)Ordered By: Dr. Willingham on 11-18-2022 Hemoglobin (Reticulocytes) [Entitic mass] 16.6 pg 30-35 [facility] INR in Blood by Coagulation assayOrdered By: Dr. Willingham on 11-18-2022 INR Coag (Bld) [Relative time] 0.9 {INR} [facility] Iron measurement (mass/mass) Ordered By: Dr. Willingham on 11-18-2022 Iron (Unsp spec) [Mass/Mass] 12 ug/dL 50-170 [facility] - Chemistry and C hemistry - challengeOrdered By: Dr. Willingham on 11-18-2022 ALP [Catalytic activity/Vol] 94 U/L 45-117 [facility] ALT [Catalytic activity/Vol] 19 U/L [facility] Globulin (S) [Mass/Vol] 4.3 g/dL 2.2-4.2 [facility] - Chemistry and C hemistry - challengeOrdered By: ED PROVIDER on 11-18-2022 CO2 [Moles/Vol] 26.0 mmol/L 21.0-32.0 [facility] Urea nitrogen/Creatinine [Mass ratio] 23.6 mg/mg 05-30 [facility] - Chemistry and C hemistry - challengeOrdered By: Dr. Geronimo on 11-18-2022 ALP [Catalytic activity/Vol] 88 U/L 45-117 [facility] ALT [Catalytic activity/Vol] 20 U/L [facility] CO2 [Moles/Vol] 26.0 mmol/L 21.0-32.0 [facility] Globulin (S) [Mass/Vol] 3.9 g/dL 2.2-4.2 [facility] Urea nitrogen/Creatinine [Mass ratio] 18.4 mg/mg 05-30 [facility] - CoagulationOrde red By: Dr. Willingham on 11-18-2022 PT Coag (PPP) [Time] 12.2 s 11.7-14.9 [facility] - Hematology and Cell countsOrdered By: ED PROVIDER on 11-18-2022 Erythrocyte distribution width (RBC) [Entitic vol] 48.6 fL 35.1-43.9 [facility] Erythrocyte distribution width (RBC) [Ratio] 18.5 % 11.6-14.6 [facility] Immature granulocytes/100 WBC (Bld) 0.400 % 0.0-0.9 [facility] Comment on above: IG% - Immature Granu locytes (promyelocytes, myelocytes and metamyelocytes) > 1% indicates that a LEFT SHIFT is Present. MCH (RBC) [Entitic mass] 20.1 pg 27.0-32.0 [facility] Nucleated RBC/100 WBC (Bld) [Ratio] 0.3 % 0-5 [facility] - Hematology and Cell countsOrdered By: Dr. Geronimo on 11-18-2022 Erythrocyte distribution width (RBC) [Entitic vol] 47.9 fL 35.1-43.9 [facility] Erythrocyte distribution width (RBC) [Ratio] 18.3 % 11.6-14.6 [facility] Immature granulocytes/100 WBC (Bld) 0.300 % 0.0-0.9 [facility] Comment on above: IG% - Immature Granu locytes (promyelocytes, myelocytes and metamyelocytes) > 1% indicates that a LEFT SHIFT is Present. MCH (RBC) [Entitic mass] 19.3 pg 27.0-32.0 [facility] Nucleated RBC/100 WBC (Bld) [Ratio] 0.4 % [address] [facility] Auto (RBC) [Mass/Vol]Or dered By: ED PROVIDER on 11-18-2022 MCHC (RBC) [Mass/Vol] 27.7 g/dL 32-36 [facility] MCHC Auto (RBC) [Mass/Vol]Or dered By: Dr. Geronimo on 11-18-2022 MCHC (RBC) [Mass/Vol] 26.7 g/dL 32-36 [facility] No Panel InformationOrdered By: Dr. Willingham on 11-18-2022 Immature Reticulocyte Fraction 23.00 % 3.00-15.90 [facility] Reticulocyte Count 2.21 % 0.5-1.5 [facility] Total Iron Binding Capacity 466 ug/dL 250-450 [facility] No Panel InformationOrdered By: ED PROVIDER on 11-18-2022 Estimated Creatinine Clearance Calc 42.91 ml/min [facility] Estimated GFR (MDRD) Amer 107 mL/min >60 [facility] Comment on above: GFR Calc Estimated GFR (MDRD) Non-Af Amer 88 mL/min >60 [facility] Comment on above: Non- GFR Calc No Panel InformationOrdered By: Dr. Geronimo on 11-18-2022 Estimated GFR (MDRD) Amer 102 mL/min >60 [facility] Comment on above: GFR Calc Estimated GFR (MDRD) Non-Af Amer 84 mL/min >60 [facility] Comment on above: Non- GFR Calc Thyroid Stimulating Hormone (TSH) 1.00 uIU/mL 0.358-3.74 [facility] Platelets bldOrdered By: ED PROVIDER on 11-18-2022 Platelets (Bld) [#/Vol] 365 10*3/uL 150-450 [facility] Platelets bldOrdered By: Dr. Geronimo on 11-18-2022 Platelets (Bld) [#/Vol] 408 10*3/uL 150-450 [facility] Serum or plasma albumin snow urement (mass/volume)Ordered By: Dr. Willingham on 11-18-2022 Albumin [Mass/Vol] 3.5 g/dL 3.2-5.0 [facility] Serum or plasma albumin snow urement (mass/volume)Ordered By: Dr. Geronimo on 11-18-2022 Albumin [Mass/Vol] 3.6 g/dL 3.2-5.0 [facility] Serum or plasma albumin/glob ulin mass ratioOrdered By: Dr. Geronimo on 11-18-2022 Albumin/Globulin [Mass ratio] 0.9 {ratio} 0.9-2.4 [facility] Serum or plasma calcium snow urement (mass/volume)Ordered By: ED PROVIDER on 11-18-2022 Calcium [Mass/Vol] 8.8 mg/dL 8.5-10.1 [facility] Serum or plasma calcium snow urement (mass/volume)Ordered By: Dr. Geronimo on 11-18-2022 Calcium [Mass/Vol] 9.0 mg/dL 8.5-10.1 [facility] Serum or plasma creatinine m easurement (mass/volume)Ordered By: ED PROVIDER on 11-18-2022 Creatinine [Mass/Vol] 0.68 mg/dL 0.55-1.02 [facility] Comment on above: The validity of the calculated GFR & GFRAA in patients over 70 years has not been determined. Clinical correlation is essential. Serum or plasma creatinine m easurement (mass/volume)Ordered By: Dr. Geronimo on 11-18-2022 Creatinine [Mass/Vol] 0.71 mg/dL 0.55-1.02 [facility] Comment on above: The validity of the calculated GFR & GFRAA in patients over 70 years has not been determined. Clinical correlation is essential. Serum or plasma ferritin ifrah surement (mass/volume)Ordered By: Dr. Willingham on 11-18-2022 Ferritin [Mass/Vol] 4 ng/mL 8 [facility] Serum or plasma iron saturat ion measurement (mass fraction)Ordered By: Dr. Willingham on 11-18-2022 Iron saturation [Mass fraction] 2.6 % 15.0-55.0 [facility] Serum or plasma urea nitroge n measurement (mass/volume)Ordered By: ED PROVIDER on 11-18-2022 Urea nitrogen [Mass/Vol] 16 mg/dL 02-25 [facility] Serum or plasma urea nitroge n measurement (mass/volume)Ordered By: Dr. Geronimo on 11-18-2022 Urea nitrogen [Mass/Vol] 13 mg/dL 02-25 [facility] Stool gastrointestinal hemog lobin detection by immunologic methodOrdered By: Dr. Willingham on 11-18-2022 Lower GI hemoglobin IA Ql (Stl) [facility] Thin prep Papanicolaou smear with manual screeningOrdered By: Dr. Willingham on 11-18-2022 Thin prep Papanicolaou smear with manual screening 17 U/L 15 [facility] Thin prep Papanicolaou smear with manual screeningOrdered By: ED PROVIDER on 11-18-2022 Thin prep Papanicolaou smear with manual screening 4 5-15 [facility] Thin prep Papanicolaou smear with manual screeningOrdered By: Dr. Geronimo on 11-18-2022 Thin prep Papanicolaou smear with manual screening 19 U/L 15- [facility] Thin prep Papanicolaou smear with manual screening 3 5-15 [facility] ANES Thiago 09-07-2018 ANES POST HNO ID: [id number] Author: Abdi Cruz I Service: Anesthesiology Author Type: Anesthesiologist Type: Anesthesia PostOp Filed: 09/07/2018 2:24 PM Note Text: POST ANESTHESIA EVALUATION NOTE SERVICE DATE: 09/07/2018 SERVICE TIME: 2:24 PM : 1941 Vitals: 09/07/18 0939 09/07/18 1345 09/07/18 1400 BP: 159/72 169/79 158/72 Pulse: 81 83 63 Resp: 18 20 Temp: 36.6 ?C (97.9 ?F) 36.8 ?C (98.2 ?F) TempSrc: Oral Oral SpO2: 98% 100% 99% Validated Vital Signs: Yes No apparent anesthetic complications. The patient is appropriately hydrated with stable respiratory and cardiovascular status. Patient has safe and adequate airway control. The patient has appropriate pain relief and no significant post operative nausea or vomiting. The patient has achieved baseline mental status. Further assessment by Anesthesia Service: None Other Remarks: SIGNATURE: Abdi Cruz MD PATIENT NAME: Tracie Chan DATE: September 07, 2018 TIME: 2:24 PM PAGER/CONTACT #: [facility] POST ANESTHESIA NOTE PATIENT NAME: Tracie Chan Vitals: 09/07/18 0939 09/07/18 1345 09/07/18 1400 BP: 159/72 169/79 158/72 Pulse: 81 83 63 Resp: 18 20 Temp: 36.6 ?C (97.9 ?F) 36.8 ?C (98.2 ?F) TempSrc: Oral Oral SpO2: 98% 100% 99% No apparent anesthetic complications. The patient is appropriately hydrated with stable respiratory and cardiovascular status. Patient has safe and adequate airway control. The patient has appropriate pain relief and no significant post operative nausea or vomiting. The patient has achieved baseline mental status. Further assessment by Anesthesia Service: None Other remarks: None SIGNATURE: Abdi Cruz MD DATE: September 07, 2018 TIME: 2:24 PM [facility] ANES PREOPon 09-07-2018 ANES PREOP HNO ID: [id number] Author: Abdi Cruz I Service: Anesthesiology Author Type: Anesthesiologist Type: Anesthesia PreOp Filed: 09/07/2018 10:12 AM Note Text: [facility] ANESTHESIOLOGY DAY OF SURGERY NOTE PATIENT NAME: Tracie Chan Procedure(s) (LRB): DECOMPRESSION LAMINECTOMY LUMBAR POSTERIOR LEVEL 1 (Left L4/5, L5/S1 Foraminotomies) (Left) DECOMPRESSION LAMINECTOMY 1ST ADD'L LUMBAR SEGMENT (Left L4/5, L5/S1 Foraminotomies) (Left) Surgeon(s): Samantha Carolina Vitals: 09/07/18 0939 BP: 159/72 Pulse: 81 Temp: 36.6 ?C (97.9 ?F) TempSrc: Oral SpO2: 98% ACTIVE PROBLEM LIST Spinal Stenosis, Lumbar Region, Without Neurogenic Claudication Degeneration of Lumbar Or Lumbosacral Intervertebral Disc Lumbosacral Spondylosis Without Myelopathy Lumbosacral Radiculitis PAST MEDICAL HISTORY Diagnosis Date - Degeneration of lumbar or lumbosacral intervertebral disc 08/18/2018 Added automatically from request for surgery [id number] - Spinal stenosis, lumbar region, without neurogenic claudication 08/18/2018 Added automatically from request for surgery [id number] PAST SURGICAL HISTORY Procedure Laterality Date - HYSTERECTOMY 1987 - SLING OPER STRES INCONTINENCE appendectomy No family history on file. Social History: Social History Substance Use Topics - Smoking status: Former Smoker Types: Cigarettes - Smokeless tobacco: Former User - Alcohol use Yes No current facility-administere d medications on file prior to encounter. No current outpatient prescriptions on file prior to encounter. Current Facility-Administere d Medications: bacitracin 50,000 Units in sodium chloride 0.9 % 1,000 mL 50,000 Units IRRIGATION ONCE Samantha Carolina vancomycin 1,000 mg injection 1,000 mg TOPICAL ONCE Samantha Carolina Allergies: ALLERGIES Allergen Reactions - Demeral [Meperidine] GI Upset nausea Hemoglobin (g/dL) Date Value 08/28/2018 12.5 Hematocrit (%) Date Value 08/28/2018 39.3 WBC (k/uL) Date Value 08/28/2018 7.08 Platelet Count (k/uL) Date Value 08/28/2018 295 CMP: Glucose 78 08/28/2018 BUN 10 08/28/2018 Creatinine 0.64 08/28/2018 Sodium 142 08/28/2018 Potassium 4.1 08/28/2018 Chloride 104 08/28/2018 CO2 29 08/28/2018 Calcium 9.8 08/28/2018 No results found for: INR Adequate NPO status: Yes Anesthetic risks, benefits, alternatives, personnel and consent discussed: Yes Patient agrees to proceed: Yes Previous Anesthesia: No history of adverse event. Airway Assessment: MP 2; Neck ROM: Full ROM without neurologic symptoms; Airway Evaluation: No significant abnormalities Dentition: Dentures: both Symptoms of Sleep Apnea: N/A Blood Products: Not anticipated for this procedure but patient agrees Anesthetic Plan: General; Standard ASA Monitors Pain Management Plan: Parenteral or Oral ASA Class: 2 Other Medical Problems: None Chronic Beta Tawny medication administered within 24 hours: N/A I have interviewed and examined the patient. I have reviewed the medical record and/or the pre-anesthesia evaluation, pertinent labs, and test results. Significant changes in the patient's condition since the History and Physical, not otherwise documented in primary service progress notes: No This contains updated information obtained within 48 hours of Surgery/Procedure. SIGNATURE: Abdi Cruz MD DATE: September 07, 2018 TIME: 10:02 AM [facility] Confirm Blood Typeon 019 ABO/RH(D) Negative [facility] NURSING PROGon 09-07-2018 Protein mass conc HNO ID: [id number] Author: Vandana BaezRn) MARIELY Nguyen Service: Nursing Author Type: Registered Nurse Type: Nursing Progress Note Filed: 09/07/2018 9:40 AM Note Text: PRE OP LEARNING ASSESSMENT TOPIC: Survival Skills: PROCEDURE/SURGERY Procedure/Surgery: pre and post op instructions regarding Plan of Care day of surgery Procedure READINESS TO LEARN COGNITIVE ABILITY: Alert and oriented MOTIVATION TO LEARN: Eager FAMILY SUPPORT: High - Very involved in pt care PATIENT LEARNS BEST BY: Verbal Instruction FACTORS AFFECTING LEARNING: None PHYSICAL LIMITATIONS AFFECTING LEARNING: None [facility] OPERATIVE NOon 09-07-2018 OPERATIVE NO HNO ID: [id number] Author: Samantha Carolina Service: Neurosurgery Author Type: Physician Type: Operative Report Filed: 09/07/2018 1:33 PM Note Text: OPERATIVE/PROCEDURE REPORT LOG ID: [id number] SURGERY/PROCEDURE DATE: 09/07/2018 INCISION/PROCEDURE START TIME: 12:30 PM INCISION CLOSE/PROCEDURE END TIME: SURGEON(S)/PROCEDURA LIST(S) AND HELICOPTER PILOT INSTRUCTOR(S): Surgeon(s) and Role: * Samantha Carolina - Primary Physician Nursery Nurse: Nain Haider (Pa) SURGERY/PROCEDURE(S) : Left L4/5 L5/S1 facetectomies and foraminotomies ANESTHESIA: General SURGERY/PROCEDURE DETAILS: This patient was brought to the operating room, where he was carefully sedated and? intubated.? IVs were established by Anesthesia.? She was flipped prone onto the Cali table.? All bony prominences well padded.? Her lumbar region was prepped and draped in a? sterile fashion.? Using lateral fluoroscopy, we localized over the L4-5 interspace.? Using? a 10 blade, I made a 26 mm incision, 1.5 cm off the midline.? I then inserted my dilators? after opening up the paraspinal fascia with Bovie mono cautery.? I serially dilated up and? inserted a 5 cm length x 26 mm diameter [employer] tubular? retractor, which was secured to the articulating arm.? The microscope was brought into the? field.? The remainder of the procedure was carried under the microscope.? Dr. Street confirmed the level. Using Bovie mono? cautery and pituitary rongeurs, I carefully carried off the soft tissue overlying the? lamina-facet complex on the left side at L4-5.? Using a T12 bit on the Midas Enoc drill, I? performed hemilaminotomy and? a medial facetectomy going down through to the yellow ligament.? I then used a 2 mm Kerrison after I opened the ligament with a curved curette to carefully? remove the remaining ligament in a piecemeal fashion and complete my facetectomy and? foraminotomy following the nerve as it exited.? I removed any osteophytes associated with? the facet joint.? I opened up the lateral recess and decompressed.? I confirmed adequate? decompression using a nerve hook.? 3 cc of Depo-Medrol was placed on the nerve root.? I then irrigated copiously with antibiotic containing irrigation.? I? then removed my retractor and turned my attention to L5/S1. Once again I placed my dilators and serially dilated up and inserted a 6cm length johnny tubular retractor secured to the articulating arm centered at L5/S1.The microscope was brought into the? field.? The remainder of the procedure was carried under the microscope.? Using Bovie mono? cautery and pituitary rongeurs, I carefully carried off the soft tissue overlying the? lamina-facet complex on the left side at L5/S1.? Using a T12 bit on the Midas Enoc drill, I? performed hemilaminotomy and? a medial facetectomy going down through to the yellow ligament.? I then used a 2 mm Kerrison after I opened the ligament with a curved curette to carefully? remove the remaining ligament in a piecemeal fashion and complete my facetectomy and? foraminotomy following the nerve as it exited.? I removed any osteophytes associated with? the facet joint.? I opened up the lateral recess and decompressed.? I confirmed adequate? decompression using a nerve hook. This completed the foraminotomies at L4/5 and L5/S1 on the left. Depo medrol was placed on the exiting nerve. Hemostasis was obtained with Azael Seal. We closed the wound in multiple layers using 0 Vicryl to close? the fascia, 2-0 Vicryl was used to close the subcutaneous tissue, and skin was closed with? running 4-0 monocryl in? simple subcuticular fashion.? Sterile skin glue was applied. The patient? was then transferred over to his hospital bed where he was extubated and taken to PACU in? stable condition. PRE-OP/PRE-PROCEDURE DIAGNOSIS: Spinal stenosis, lumbar region, without neurogenic claudication Lumbar radiculopathy POST-OP/POST-PROCEDU RE DIAGNOSIS: Spinal stenosis, lumbar region, without neurogenic claudication Lumbar radiculopathy ESTIMATED BLOOD LOSS: 20 mls SPECIMENS: None IMPLANTABLE DEVICES: None DRAINS: None COMPLICATIONS: None PARTICIPATION IN SURGERY/PROCEDURE: I performed the procedure with assistance. SIGNATURE: Samantha Carolina MD PATIENT NAME: Tracie Chan DATE: September 07, 2018 TIME: 1:28 PM PAGER/CONTACT #: [facility] PT EDon 09-07-2018 PT ED HNO ID: [id number] Author: Vaishnavi (Rn) MARIELY Ann Service: (none) Author Type: Registered Nurse Type: Patient Education Filed: 09/07/2018 4:02 PM Note Text: PATIENT EDUCATION TOPIC: PROCEDURE / SURGERY: Procedure/Surgery: L4/5 and L5/S1 Foramenotomy PATIENT NAME: Tracie Chan PATIENT LOCATION: [facility] SURG OR POOL/[facility] SURG * READINESS TO LEARN COGNITIVE ABILITY: Alert and oriented MOTIVATION TO LEARN: Interested FAMILY SUPPORT: High - Very involved in pt care INSTRUCTION PROVIDED TO: Patient and Son PATIENT LEARNS BEST BY: Individual Instruction Written Instruction - Hand-outs Verbal Instruction FACTORS AFFECTING LEARNING: None PHYSICAL LIMITATIONS AFFECTING LEARNING: None LEARNING RESPONSE DIAGNOSIS: ADULT: surgery PATIENT/FAMILY RESPONSE: Verbalizes understanding of: POST-OPERATIVE INSTRUCTIONS-Correct actions to take to reduce postoperative complications METHOD OF INSTRUCTION: Individual instruction Written instruction - handouts Verbal instruction FOLLOW-UP PLAN: Patient instructed to call with any further issues INSTRUCTIONAL AIDS USED: NA SUPPLEMENTAL MATERIAL PROVIDED TO PATIENT: None REFERRAL (RECOMMENDATION): None Electronically Signed By: Vaishnavi Ann RN [facility] RBC Antibody Interp (Lab Ord ered)on 09-07-2018 Antibody Interp (NOTE) [facility] Comment on above: Result Comment: Anti bodies to common clinically significant red cell antigens have been excluded. Serological reactivity of no apparent specificity is noted. The plasma is reactive with 1 of 3 cells on the gel screen, but the PEG screen, the gel panel, and the ficin panel are negative. Units for RBC transfusion must be compatible on the antiglobulin crossmatch which will provide a measure of safety with regard to the reactivity of no apparent specificity. Please allow about 2 hours for pretransfusion and compatibility testing. Performed By: #### A BINTB ####[id number] [place], [place] [phone] Physician Review Signed by Kaylah Rodriguez MD ([id number]) [facility] Comment on above: Performed By: #### A BINTB ####[place] [address], [place] [phone] Type and Screenon 09-07-2018 ABO/RH(D) Negative [facility] Antibody Identified ANTIBODY REACTIVITY, No Apparent Specificity. Normal [facility] XR LUMBAR 1Von 09-07-2018 XR LUMBAR 1V * * *Final Report* * * DATE OF EXAM: Sep 07 2018 12:48PM HCR [id number] - XR LUMBAR 1V / PROCEDURE REASON: HERNIATED DISC * * * * Physician Interpretation * * * * RESULT: INTRAOPERATIVE FLUOROSCOPY OF THE LUMBAR SPINE HISTORY: Herniated disc RESULT: Fluoroscopic Radiation Summary: Plane A, Air Kerma: 2.3 mGy Dose Area Product (DAP): 0.0 mGy*cmS2 Fluoro time: 0:11 min:sec Study was performed by Dr. Carolina. Localizer is noted posteriorly at the L4/5 level on view #1, and at the L5/S1 level on view #2. Please refer to operative report for full details. IMPRESSION: Intraoperative fluoroscopy of the lumbar spine for localization purposes only. Transcribed Using Voice Recognition Transcribe Date/Time: Sep 07 2018 1:37P Dictated by: MICHAEL WILKERSON MD This examination was interpreted and the report reviewed and electronically signed by: MICHAEL WILKERSON MD on Sep 07 2018 1:37PM EST [id number] Normal [facility] NURSING PROGon 09-02-2018 Protein mass conc HNO ID: [id number] Author: Amanda Dela Cruz) MARIELY Siddiqi Service: (none) Author Type: Registered Nurse Type: Nursing Progress Note Filed: 09/02/2018 3:46 PM Note Text: PACC Nurse Progress Note History AND Physical: PACC Visit Date: 08/28/18 Original HANDP Date: N/A ED visit Date: N/A Outside HANDP Scanned Date: N/A Labs Within Last 6 Months: CBC: Date 08/28/18 Wnl BMP/CMP: Date 08/28/18 Wnl STAAMP: Date 08/28/18 Wnl Imaging Within Last 12 Months: See chart Cardiac Testing: N/A Last Menstrual Period: LMP Date: N/A Postmenopausal >1yr: Yes, S/P Hysterectomy: N/A BMI Percentile (PEDS): N/A Risk Assessment: N/A Anesthesia Review: N/A Narrative: N/A Pre-op Considerations: N/A Chart Check: COMPLETED Amanda Siddiqi RN September 02, 2018 3:45 PM [facility] HOSPon 08-18-2018 HOSP Patient:Beverly Chan MRN: Height:5' 7(1.702 m) Weight:152 lb (68.947 kg) Outpatient Medications as of 09/07/18: oxyCODONE-acetaminop hen (PERCOCET) 5-325 mg tablet MAGNESIUM ORAL VITAMIN B COMPLEX ORAL OTC NUTRITIONAL SUPPLEMENT Admission/Clinic Administered Medications as of 09/07/18: NaCl 0.9% iv infusion ceFAZolin iv piggyback 2 g in D5W (iso-osmotic) 100 mL (ANCEF) bacitracin 50,000 Units in sodium chloride 0.9 % 1,000 mL vancomycin 1,000 mg injection Problem List: Spinal stenosis, lumbar region, without neurogenic claudication [M48.061] Degeneration of lumbar or lumbosacral intervertebral disc [M51.37] Lumbosacral spondylosis without myelopathy [M47.817] Lumbosacral radiculitis [M54.17] Allergies: Demeral [Meperidine] Date Verified: 09/07/18 Lab Values Lab Value Units Date High Low POTA* 4.1 mmol/L 08/28/2018 5.1 3.7 MARCO* 39.3 % 08/28/2018 46.0 36.0 No progress notes entered within the past 30 days [facility] Otheron 06-25-2018 Outside Imaging Study for Support of Clinical Care This study was sent from an outside facility to [facility] for support of clinical care of the patient within the [facility] system. Invalid Interpretation Code [facility] Work Phone: Outside Imaging Study for Support of Clinical Care This study was sent from an outside facility to [facility] for support of clinical care of the patient within the [facility] system. Invalid Interpretation Code [facility] Work Phone: Vital Signs Date Time Vital Sign Value Performing Clinician Devan cabrales 11-19-2022 19:28-0400 Body temperature 98.1 [degF] Dr. Kiara Geronimo Work Phone: [facility] 11-19-2022 19:28-0400 Diastolic blood pressure 69 mm[Hg] Dr. Kiara Geronimo Work Phone: [facility] 11-19-2022 19:28-0400 Heart rate 100 /min Dr. Kiara Geronimo Work Phone: [facility] 11-19-2022 19:28-0400 Respiratory rate 18 /min Dr. Kiara Geronimo Work Phone: [facility] 11-19-2022 19:28-0400 SaO2% (BldA) [Mass fraction] 99 % Dr. Kiara Geronimo Work Phone: [facility] 11-19-2022 19:28-0400 Systolic blood pressure 151 mm[Hg] Dr. Kiara Geronimo Work Phone: [phone] [place] [address] 11-19-2022 12:02-0400 Body mass index (BMI) [Ratio] 22.8 kg/m2 Dr. Kiara Geronimo Work Phone: [phone] [place] [address] 11-19-2022 12:02-0400 Body weight 66.[address] Kiara Geronimo Work Phone: 0(431)[phone] [place] [address] 11-18-2022 22:47-0400 Body height 170.[address] Kiara Geronimo Work Phone: [phone](820)[phone] [place] [address] 11-18-2022 22:47-0400 Body mass index (BMI) [Ratio] 22.4 kg/m2 Dr. Kiara Geronimo Work Phone: [phone])[phone] [place] [address] 11-18-2022 22:47-0400 Body weight 64.[address] Kiara Geronimo Work Phone: [facility] 11-18-2022 22:02-0400 Body temperature 98.6 [degF] Dr. Kiara Geronimo Work Phone: [facility] 11-18-2022 22:02-0400 Diastolic blood pressure 70 mm[Hg] Dr. Kiara Geronimo Work Phone: [facility] 11-18-2022 22:02-0400 Heart rate 87 /min Dr. Kiara Geronimo Work Phone: [facility] 11-18-2022 22:02-0400 Respiratory rate 18 /min Dr. Kiara Geronimo Work Phone: [facility] 11-18-2022 22:02-0400 SaO2% (BldA) [Mass fraction] 98 % Dr. Kiara Geronimo Work Phone: [facility] 11-18-2022 22:02-0400 Systolic blood pressure 136 mm[Hg] Dr. Kiara Geronimo Work Phone: [facility] Encounters Encounter Date Encounter Type Care Provider Facility Start: 02-16-2024 End: 02-16-2024 ambulatory Kiara Geronimo Facility:[facility] Start: 11-27-2022 End: 11-27-[address] Kiara Geronimo Work Phone: [facility] Work Phone: Start: 11-27-2022 End: 11-27-[address] Kiara Geronimo Work Phone: [facility] Start: 11-19-2022 Non-patient / Non-visit Dr. Kiara Geronimo Work Phone: [facility] Start: 11-19-2022 Non-patient / Non-visit Dr. Kiara Geronimo Work Phone: [facility] Start: 11-19-2022 End: 11-19-2022 Non-patient / Non-visit Dr. Kiara Geronimo Work Phone: [facility] Start: 11-18-2022 Non-patient / Non-visit Dr. Kiara Geronimo Work Phone: [facility] Start: 11-18-2022 End: 11-19-2022 Evaluation and management of inpatient Dr. Kiara Geronimo Work Phone: [facility] Start: 11-18-2022 End: 11-18-[address] [facility]imo [facility] Start: 02-27-2022 End: 02-27-2022 Patient encounter procedure [facility] Start: 02-08-2022 End: 02-08-2022 Patient encounter procedure [facility] [place] Start: 09-07-2018 End: 09-07-2018 Patient encounter procedure SAMANTHA Hill [facility] Start: 08-25-2018 Evaluation and management of inpatient ANGELINE DILL [facility] Start: 08-13-2018 End: 08-13-2018 Patient encounter procedure [facility] Start: 06-25-2018 End: 06-25-2018 Patient encounter Angeline Dill Work Phone: [facility] [place] Start: 12-30-2017 Patient encounter procedure ANGELINE DILL [facility] Start: 12-30-2017 End: 12-30-2017 Patient encounter procedure Angeline Dill Work Phone: Outside Imaging Start: 09-17-2017 Patient encounter procedure ANGELINE DILL [facility] Start: 09-17-2017 End: 09-17-2017 Patient encounter procedure Angeline Dill Work Phone: Outside Imaging Procedures Date Procedure Procedure Detail Performing Clinician Start: 11-19-[address] Kiara shah Work Phone: Start: 11-19-2022 Plain chest X-ray Dr. Yuriy Geronimo Work Phone: Start: 11-18-2022 Plain chest X-ray Dr. Yuriy Geronimo Work Phone: Start: 02-27-2022 MRI of lumbar spine Start: 02-08-2022 Plain x-ray of pelvi s and lower extremity Start: 02-08-2022 X-ray of lumbosacral spine Start: 09-07-2018 Antibody screen SAMANTHA AGARWAL TLER Start: 12-30-2017 End: 12-30-2017 XR SPINE LUMBAR (OUTSIDE IMAGE) Angeline Dill Work Phone: Start: 09-17-2017 End: 09-17-2017 MRI SPINE LUMBAR (OUTSIDE IMAGE) Angeline Dill Work Phone: Measurement of occul t blood in stool specimen using immunoassay Dr. Kiara Geronimo Work Phone: Plan of Treatment Date Care Activity Detail Author Start: 11-19-2022 Patient discharge [facility] Start: 11-19-2022 Catheterization of vein [facility] Start: 11-19-2022 [facility] Start: 11-18-2022 Administration of bl ood product [facility] Start: 11-18-2022 Assessment of risk o f venous thromboembolism [facility] Start: 11-18-2022 Documentation procedure [facility] Start: 11-18-2022 Incentive spirometry [facility] Start: 11-18-2022 Insertion of cathete r into peripheral vein [facility] Start: 11-18-2022 Oxygen therapy [facility] Start: 11-18-2022 Providing care accor ding to standard [facility] Start: 11-18-2022 Referral to gastroenterology service [facility] Start: 11-18-2022 Referral to service [facility] Start: 11-18-2022 [facility] Start: 11-18-2022 Following clinical p athway protocol [facility] Start: 11-18-2022 Verification routine [facility] Start: 11-18-2022 Admission procedure [facility] Start: 11-18-2022 Leukocyte reduced re d blood cells [facility] Start: 08-25-2018 Ambulatory 08/25/2018 [facility] Start: 08-25-2018 Inpatient Encounter 08/25/2018 Hospital Encounter Multispecialty Angeline Dill MD [address] [place] [id number] Spinal stenosis of lumbar region DAVID Comment on above: Spinal stenosis of l umbar region Start: 04-11-2018 Influenza vaccination INFLUENZA VACC INE (#1) [facility] Work Phone: Start: 2006 Pneumococcal vaccination PNEUM OCOCCAL VACCINE SERIES (1 of 2 - PCV13) [facility] Work Phone: Start: 10-24-1991 Colonoscopy COLON CANCER S CREENING DISCUSSION [facility] Work Phone: Start: 10-24-1991 Protein mass conc COLON CANCER SCREENING DISCUSSION [facility] Work Phone: Start: 1981 Protein mass conc MAMMOGRAM SC REENING DISCUSSION [facility] Work Phone: Start: 1981 Screening mammography MAMMOGRA M SCREENING DISCUSSION [facility] Work Phone: Start: 1962 Screening for malign ant neoplasm of cervix PAP SMEAR DISCUSSION [facility] Work Phone: Start: 1960 Third diphtheria, te tanus and acellular pertussis (DTaP) vaccination TDAP (ADULT) [facility] Work Phone: Start: 10-24-1959 Tetanus vaccination TETANUS Wyi [facility] Work Phone: Start: 1941 Screening for osteoporosis DEXA SCAN DISCUSSION [facility] Work Phone: Hemoglobin [Mass/vol ume] in Blood [facility] Patient referral [facility] Work Phone: Payers Date Payer Category Payer Self-pay [id number] 2024 Unknown [id number] 2016 Unknown [id number] 2006 Medicare [id number] Unknown [id number] Social History Date Type Detail Facility Tobacco smoking status NHIS Unknown if ever smoked [facility] Work Phone: Sex Assigned At Not on file [facility] Work Phone: Start: 06-06-2021 End: 11-18-2022 Tobacco smoking status NHIS Unknown if ever smoked [facility] Start: 1940 Sex Assigned At Female [facility] NEGATED: Highlighted row [facility] Goals Date Patient Goal Desired Activity /State Functional Status Date Assessment Result Facility 11-19-2022 Functional status Ambulates [facility] Work Phone: Mental Status Date Assessment Result Facility 11-19-2022 Cognitive function Voice/Name [facility] Work Phone: 11-18-2022 Cognitive function Level Of Cons ciousness Awake;Alert;Appropriate;Follow s Commands [facility] Work Phone: Clinical Notes 11-18-2022 to 11-19-2022 Note Date & Type Note Facility 11-19-2022 Progress note Note Date/Time November 19, 2022 7:35am [facility] Medical Records Department [address] [place] [address] Progress Note - Hospitalist 11/19/22 0730 MR#: [id number] Acct: [id number] Name: TARCIE CHAN Ida Rep #:[id number] : 1940 82 From: Dylon Spicer PCP: Dr. Kiara Geronimo MD Status:ADM IN Location: [place] [address] Reason for Visit Reason for Visit: Diagnoses Anemia, unspecified (11/18/22) Gastrointestinal hemorrhage, unspecified (11/18/22) Follow-up for severe anemia. Subjective Subjective Follow-up for severe anemia found in the lab. Objective Data Objective Data Vital Signs: Vital Signs Temp Pulse Resp BP Pulse Ox O2 Del Method 97.9 F 78 18 160/60 H 99 Room Air 11/19/22 06:17 11/19/22 06:17 11/19/22 06:17 11/19/22 06:17 11/19/22 06:17 11/19/22 06:17 Oxygen Delivery Method Room Air Weight: 142 lb 13.753 oz Body Mass Index (BMI) 22.4 Intake & Output: Intake and Output for Last 24 Hours 11/17/22 11/18/22 11/19/22 23:59 23:59 23:59 Intake Total 780 / 780 Balance 780 / 780 Lab / Micro Data Result Diagrams: 11/19/22 03:39 11/19/22 03:39 Labs: Laboratory Results - last 24 hr 11/18/22 17:23: WBC 7.7, RBC 3.24 L, Hgb 6.5 L, Hct 23.5 L, MCV 72.5 L, MCH 20.1L, MCHC 27.7 L, RDW Std Deviation 48.6 H, RDW Coeff of Shay 18.5 H, Plt Count 365, MPV 10.5, Immature Gran % (Auto) 0.400, Neut % (Auto) 61.0, Lymph % (Auto) 24.8, Pierce % (Auto) 10.6 H, Eos % (Auto) 2.5, Baso % (Auto) 0.7, Absolute Neuts (auto) 4.7, Absolute Lymphs (auto) 1.90, Nucleated RBC % 0.3 11/18/22 17:23: Blood Type A NEGATIVE, Antibody Screen NEGATIVE 11/18/22 17:23: Crossmatch See Detail 11/18/22 18:10: Sodium 138, Potassium 3.9, Chloride 108 H, Carbon Dioxide 26.0, Anion Gap 4 L, BUN 16, Creatinine 0.68, Estim Creat Clear Calc 42.91, Est GFR (MDRD) Af Amer 107, Est GFR (MDRD) Non-Af 88, BUN/Creatinine Ratio 23.6 H, Glucose 100, Calcium 8.8 11/18/22 19:21: PT 12.2, INR 0.9 11/18/22 19:21: Total Bilirubin 0.20, Direct Bilirubin 0.06, AST 17, ALT 19, Alkaline Phosphatase 94, Total Protein 7.8, Albumin 3.5, Globulin 4.3 H 11/18/22 21:24: Hgb 6.9 L, Retic Count 2.21 H, Immature Retic Fraction 23.00 H, Retic Hgb Equivalent 16.6 L 11/18/22 21:24: Iron 12 L, TIBC 466 H, Iron Saturation 2.6 L, Ferritin 4 L 11/19/22 03:39: WBC 8.2, RBC 3.28 L, Hgb 6.5 L, Hct 23.5 L, MCV 71.6 L, MCH 19.8L, MCHC 27.7 L, RDW Std Deviation 47.4 H, RDW Coeff of Shay 18.3 H, Plt Count 355, MPV 9.0, Immature Gran % (Auto) 0.400, Neut % (Auto) 70.5 H, Lymph % (Auto)14.9 L, Pierce % (Auto) 11.4 H, Eos % (Auto) 2.3, Baso % (Auto) 0.5, Absolute Neuts (auto) 5.8, Absolute Lymphs (auto) 1.22, Nucleated RBC % 0 11/19/22 03:39: Sodium 139, Potassium 3.8, Chloride 109 H, Carbon Dioxide 26.0, Anion Gap 4 L, BUN 11, Creatinine 0.64, Estim Creat Clear Calc 42.91, Est GFR (MDRD) Af Amer 115, Est GFR (MDRD) Non-Af 95, BUN/Creatinine Ratio 17.2, [id number] H, Calcium 8.8, Phosphorus 4.0, Magnesium 2.1, Total Bilirubin 0.20, AST 14 L, ALT 16, Alkaline Phosphatase 82, Total Protein 7.3, Albumin 3.4, Globulin 3.9, Albumin/Globulin Ratio 0.9 Micro: Microbiology 11/18/22 19:15 Stool Stool Occult Blood (NINA) - Final Radiography Diagnostic Testing: Radiology Impression Chest X-Ray 11/19/22 06:00 IMPRESSION: No radiographic evidence of acute cardiopulmonary disease. Electronically Signed: Anthony Mcbride MD at 6:16 EDT , Physical Exam Narrative Patient denies any dizziness lightheadedness. Patient feels weak on exertion athome. Currently asymptomatic. Denies obvious/external GI bleed including blackstool brown or red stool. No hematemesis. Physical exam General: Alert, Oriented x3, Cooperative HEENT: Atraumatic, PERRLA, EOMI, Normocephalic Oral: Oral mucosa moist. No Gingival or Mucosal Lesions/ Ulcerations Neck: Supple, No JVD, Negative Carotid Bruits Lungs: Air entry diminished in bilateral lung bases. No crepitation/rhonchi Cardiovascular: Regular rate, Regular Rhythm, Normal S1, Normal S2, No murmurs Abdomen: Bowel Sounds Present, Soft, Non Tender, Non-Distended : No renal angle tenderness. No suprapubic tenderness. Extremities: No edema, Capillary Refill Less than 3 Seconds Skin: No rashes, No breakdown Musculoskeletal: No Tenderness to Palpation of Joints or Extremities Neurological: Cranial nerves II-XII grossly intact, DTR 2+/4 and Symmetrical, Neuro grossly intact Psych/Mental Status: Normal Affect, Appropriate. Assessment & Plan Assessment/Plan (1) Acute anemia: (2) GIB (gastrointestinal bleeding): PLAN: Plan 82-year-old female admitted with generalized weakness lightheadedness shortness of breath on exertion and abnormal lab consistent with severe anemia. No history of black or brown stool or melena. She had persistent nausea for last couple weeks. No vomiting. Acute anemia secondary to suspected GI bleed: Suspected lower GI bleed. Anemia work-up suggestive of iron deficiency anemia. Stool for occult blood negative. She never had colonoscopy but had EGD many years ago. Plan for EGD and colonoscopy. Gastroenterology saw the patient yesterday. Hemoglobin 6.5. INR normal. Liver chemistry total bilirubin normal, liver chemistry normal. Alkaline phosphatase normal. N.p.o. for the procedure. On IV fluid. Iron deficiency anemia: Patient reminded of PRBC transfusion. IV iron also ordered for 2 days. No significant change after transfusion Glaucoma -Continue home eyedrops Spinal stenosis -As needed Tylenol for pain Tobacco abuse -Recommend cessation -Currently smokes 1/2 pack of cigarettes daily -Offered nicotine replacement patient deferred at this time DVT prophylaxis -Chemoprophylaxis contraindicated secondary to severe anemia and suspected GI bleed -SCDs CODE STATUS -Full code as reviewed prior to admission with the patient Microbiology Past 72 Hours 11/18/22 19:15 Stool Stool Occult Blood (NINA) - Final Laboratory Results 11/18/22 17:23: WBC 7.7, RBC 3.24 L, Hgb 6.5 L, Hct 23.5 L, MCV 72.5 L, MCH 20.1L, MCHC 27.7 L, RDW Std Deviation 48.6 H, RDW Coeff of Shay 18.5 H, Plt Count 365, MPV 10.5, Immature Gran % (Auto) 0.400, Neut % (Auto) 61.0, Lymph % (Auto) 24.8, Pierce % (Auto) 10.6 H, Eos % (Auto) 2.5, Baso % (Auto) 0.7, Absolute Neuts (auto) 4.7, Absolute Lymphs (auto) 1.90, Nucleated RBC % 0.3 11/18/22 17:23: Blood Type A NEGATIVE, Antibody Screen NEGATIVE 11/18/22 17:23: Crossmatch See Detail 11/18/22 18:10: Sodium 138, Potassium 3.9, Chloride 108 H, Carbon Dioxide 26.0, Anion Gap 4 L, BUN 16, Creatinine 0.68, Estim Creat Clear Calc 42.91, Est GFR (MDRD) Af Amer 107, Est GFR (MDRD) Non-Af 88, BUN/Creatinine Ratio 23.6 H, Glucose 100, Calcium 8.8 11/18/22 19:21: PT 12.2, INR 0.9 11/18/22 19:21: Total Bilirubin 0.20, Direct Bilirubin 0.06, AST 17, ALT 19, Alkaline Phosphatase 94, Total Protein 7.8, Albumin 3.5, Globulin 4.3 H 11/18/22 21:24: Hgb 6.9 L, Retic Count 2.21 H, Immature Retic Fraction 23.00 H, Retic Hgb Equivalent 16.6 L 11/18/22 21:24: Iron 12 L, TIBC 466 H, Iron Saturation 2.6 L, Ferritin 4 L 11/19/22 03:39: WBC 8.2, RBC 3.28 L, Hgb 6.5 L, Hct 23.5 L, MCV 71.6 L, MCH 19.8L, MCHC 27.7 L, RDW Std Deviation 47.4 H, RDW Coeff of Shay 18.3 H, Plt Count 355, MPV 9.0, Immature Gran % (Auto) 0.400, Neut % (Auto) 70.5 H, Lymph % (Auto)14.9 L, Pierce % (Auto) 11.4 H, Eos % (Auto) 2.3, Baso % (Auto) 0.5, Absolute Neuts (auto) 5.8, Absolute Lymphs (auto) 1.22, Nucleated RBC % 0 11/19/22 03:39: Sodium 139, Potassium 3.8, Chloride 109 H, Carbon Dioxide 26.0, Anion Gap 4 L, BUN 11, Creatinine 0.64, Estim Creat Clear Calc 42.91, Est GFR (MDRD) Af Amer 115, Est GFR (MDRD) Non-Af 95, BUN/Creatinine Ratio 17.2, [id number] H, Calcium 8.8, Phosphorus 4.0, Magnesium 2.1, Total Bilirubin 0.20, AST 14 L, ALT 16, Alkaline Phosphatase 82, Total Protein 7.3, Albumin 3.4, Globulin 3.9, Albumin/Globulin Ratio 0.9 Charges/Coding Visit Charges Inpatient E&M: 45578 Subs Hosp L2 11/19/22 1703 <Electronically signed by Dylon Newton MD> Cosigner Signature (if applicable): CC: ~ Signed [facility] Work Phone: [phone] 912-919704-11-2023 Consult note Author Lon Friend [facility] November 19, 2022 1:03pm Note Date/Time November 19, 2022 1:0 3pm [facility] Medical Records Department [address] [place] [address] Consultation - GI 11/18/22 2300 MR#: [id number] Acct: [id number] Name: TRACIE CHAN Ida Rep #:[id number] : 1940 82 From: Lon Navarro DO PCP: Dr. Kiara Geronimo MD Status:ADM IN Location: [place] [id number] HPI Consult Data Date of Consult: 11/18/22 HPI Narrative Reason for Consultation: Anemia HPI Narrative: TRACIE CHAN, is a 82 F who presented from her primary care physician's office to the emergency department at [facility] with abnormal lab values.? Patient has been experiencing increased fatigue and shortness of breath over the last 2 weeks.? She states really about 4 weeks ago she had upper respiratory tract infection and thought this was all related to that.? But she has not improved so she went to her doctor today.? At her primary care physician's office lab were drawn and she was noticed to be anemic and sent to the emergency department.?? She has never had a colonoscopy. She takes 325 mg aspirin per day. She denied any signs of GI bleeding. In the ED she was noted to have a hemoglobin of 6 with a BUN/creatinine ratio of 18/1.5. I was consulted for management of anemia. [facility] Medical History DDD (degenerative disc disease), lumbar Spinal stenosis Tobacco abuse Home Medications magnesium 200 mg tablet 200 mg PO DAILY SUPPLEMENT 11/19/17 [History Last Taken 11/17/22] vitamin B complex (B Complex 1 tablet) 1 tab PO QDAY 11/19/17 [History Last Taken 11/17/22] aspirin 325 mg tablet 325 mg PO DAILY PRN Pain 03/20/22 [History Last Taken Unknown] brimonidine 0.2 %-timolol 0.5 % eye drops (Combigan) 1 drp EACH EYE BID . 11/18/22 [History Last Taken 11/18/22] cholecalciferol (vitamin D3) 25 mcg (1,000 unit) tablet (Vitamin D3) 25 mcg PO DAILY SUPPLEMENT 11/18/22 [History Last Taken 11/17/22] Allergy/AdvReac Type Severity Reaction Status Date / Time meperidine [From Demerol] Allergy Unknown Verified 11/18/22 16:52 Family History Mother Cancer Father Cancer Sister Cancer Surgical History H/O: hysterectomy Social History Smoking Status: Current every day smoker tobacco type: cigarettes ROS Constitutional Constitutional: Reports fatigue, malaise and weakness; Denies anorexia, change in weight, chills, fever(s), night sweats or other Eyes Eyes: Denies blurry vision, change in eye color, change in vision, discharge from eye(s), double vision, erythema, eye pain, loss of vision or other ENT HEENT: Denies abnormal hearing, dysphagia, ear pain, epistaxis, headache(s), hearing loss, nasal congestion, nasal discharge, post nasal drip, sinus pressure, sore throat or other Cardiovascular Cardiovascular: Reports dyspnea on exertion; Denies chest pain, claudication, edema, lightheadedness, orthopnea, palpitations, paroxysmal nocturnal dyspnea, rapid heart rate, syncope or other Respiratory/Chest Respiratory/Chest: Reports cough, dyspnea and shortness of breath with exertion;Denies excessive phlegm production, hemoptysis, productive cough, shortness of breath at rest, wheezing or other Gastrointestinal Gastrointestinal: Denies abdominal pain, coffee ground emesis, constipation, diarrhea, dyspepsia, hematemesis, hematochezia, loose stools, melena, nausea, vomiting or other Genitourinary Genitourinary: Denies burning urination, difficulty urinating, dysuria, hematuria, nocturia, urinary frequency, urinary hesitancy, urinary incontinence,urinary urgency or other Musculoskeletal Musculoskeletal: Reports back pain; Denies arthralgias, joint pain, joint stiffness, joint swelling, myalgias, neck pain or other Neurologic Neurologic: Denies abnormal gait, abnormal speech, confusion, disequilibrium, dizziness, focal weakness, headache(s), numbness, paresthesias, seizure-like activity, seizures, syncope, tingling, tremor(s) or other Psychiatric Psychiatric: Denies anxiety, depression, homicidal ideation, suicidal ideation or other Endocrine Endocrinology: Denies change in body appearance, cold intolerance, excessive sweating, heat intolerance, polydipsia, polyuria or other Hematologic/Lymphatic Hematologic/Lymphatic: Denies anemia, easy bleeding, easy bruising, lymphadenopathy or other Allergic/Immunologic Allergic/Immunologic: Denies rhinitis, hives, eczemia, asthma or other Physical Exam Const alert, oriented x3, no apparent distress and well nourished Constitutional Narrative: Elderly white female, sitting up in a chair at the bedside, family at bedside, patient appears comfortable and nontoxic General Appearance: cooperative HEENT normocephalic, head/scalp atraumatic, hearing grossly normal bilaterally and moist oral mucous membranes HEENT Narrative: Dentures in place, Mallampati 2, no thrush Eyes PERRL and EOMs intact bilaterally; Negative for conjunctivae normal Eyes Narrative: Significantly pale conjunctiva bilaterally, no scleral icterus Neck no lymphadenopathy, supple, no JVD and no carotid bruits Neck Narrative: Trachea midline, no thyroid enlargement Resp normal respiratory effort, no retractions, no use of accessory muscles and clearto auscultation bilaterally Resp Narrative: Diffusely diminished but clear Auscultation: Negative for rales, rhonchi or wheezes Cardio regular rate, regular rhythm, S1 normal heart sound, S2 normal heart sound, no murmurs, no rub, no gallops and no clicks GI normal to inspection, nondistended, normoactive bowel sounds, soft to palpation and non-tender Extremity no clubbing, cyanosis or edema Extremity Narrative: 2+ pedal pulses Skin no wounds, skin turgor normal, no jaundice, no petechiae and no mottling Skin Narrative: Pale, palmar creases are extremely pale, skin changes consistent with previous sun exposure Neuro oriented x3, CN's II-XII intact bilaterally, moves all extremities and no focal motor deficits Speech: speech normal Psych affect normal Psych Narrative: Very pleasant, eye contact is good, patient was appropriately interactive Lab / Micro Data Result Diagrams: 11/19/22 03:39 11/19/22 03:39 Labs: Laboratory Results - last 24 hr 11/18/22 17:23: WBC 7.7, RBC 3.24 L, Hgb 6.5 L, Hct 23.5 L, MCV 72.5 L, MCH 20.1L, MCHC 27.7 L, RDW Std Deviation 48.6 H, RDW Coeff of Shay 18.5 H, Plt Count 365, MPV 10.5, Immature Gran % (Auto) 0.400, Neut % (Auto) 61.0, Lymph % (Auto) 24.8, Pierce % (Auto) 10.6 H, Eos % (Auto) 2.5, Baso % (Auto) 0.7, Absolute Neuts (auto) 4.7, Absolute Lymphs (auto) 1.90, Nucleated RBC % 0.3 11/18/22 17:23: Blood Type A NEGATIVE, Antibody Screen NEGATIVE 11/18/22 17:23: Crossmatch See Detail 11/18/22 18:10: Sodium 138, Potassium 3.9, Chloride 108 H, Carbon Dioxide 26.0, Anion Gap 4 L, BUN 16, Creatinine 0.68, Estim Creat Clear Calc 42.91, Est GFR (MDRD) Af Amer 107, Est GFR (MDRD) Non-Af 88, BUN/Creatinine Ratio 23.6 H, Glucose 100, Calcium 8.8 11/18/22 19:21: PT 12.2, INR 0.9 11/18/22 19:21: Total Bilirubin 0.20, Direct Bilirubin 0.06, AST 17, ALT 19, Alkaline Phosphatase 94, Total Protein 7.8, Albumin 3.5, Globulin 4.3 H 11/18/22 21:24: Hgb 6.9 L, Retic Count 2.21 H, Immature Retic Fraction 23.00 H, Retic Hgb Equivalent 16.6 L 11/18/22 21:24: Iron 12 L, TIBC 466 H, Iron Saturation 2.6 L, Ferritin 4 L 11/19/22 03:39: WBC 8.2, RBC 3.28 L, Hgb 6.5 L, Hct 23.5 L, MCV 71.6 L, MCH 19.8L, MCHC 27.7 L, RDW Std Deviation 47.4 H, RDW Coeff of Shay 18.3 H, Plt Count 355, MPV 9.0, Immature Gran % (Auto) 0.400, Neut % (Auto) 70.5 H, Lymph % (Auto)14.9 L, Pierce % (Auto) 11.4 H, Eos % (Auto) 2.3, Baso % (Auto) 0.5, Absolute Neuts (auto) 5.8, Absolute Lymphs (auto) 1.22, Nucleated RBC % 0 11/19/22 03:39: Sodium 139, Potassium 3.8, Chloride 109 H, Carbon Dioxide 26.0, Anion Gap 4 L, BUN 11, Creatinine 0.64, Estim Creat Clear Calc 42.91, Est GFR (MDRD) Af Amer 115, Est GFR (MDRD) Non-Af 95, BUN/Creatinine Ratio 17.2, [id number] H, Calcium 8.8, Phosphorus 4.0, Magnesium 2.1, Total Bilirubin 0.20, AST 14 L, ALT 16, Alkaline Phosphatase 82, Total Protein 7.3, Albumin 3.4, Globulin 3.9, Albumin/Globulin Ratio 0.9 Micro: Microbiology 11/18/22 19:15 Stool Stool Occult Blood (NINA) - Final Radiology Impression Chest X-Ray 11/19/22 06:00 IMPRESSION: No radiographic evidence of acute cardiopulmonary disease. Electronically Signed: Anthony Mcbride MD at 6:16 EDT Reading Location ID and State: [facility] / [place] Tel , Service support , Assessment & Plan Assessment/Plan (1) Acute anemia: (2) GIB (gastrointestinal bleeding): PLAN: Plan Suspect acute anemia secondary to suspected GI bleed. Her Iron studies are indicative of iron deficiency -Patient has never had colonoscopy and with the findings I be concerned about a malignancy -Plan is for colonoscopy and EGD tomorrow -Bowel prep ordered -Clear liquid diet until midnight then n.p.o. other than bowel prep -Start IV fluids at midnight at 50 cc/h with LR -Hemoglobin is 6.7 -1 unit packed red blood cells is ordered to be given -Recommend initiating oral iron at the time of discharge -Cycle hemoglobin x2 every 6 hours -Repeat CBC in a.m. Charges/Coding Visit Charges Inpatient E&M: 77253 Init Hosp L3 11/19/22 1303 <Electronically signed by Lon Navarro DO> Cosigner Signature (if applicable): CC: Dr. Kiara Geronimo MD; Dr. Nahed Rose DO~ Signed [facility] Work Phone: [phone]) 335-710904-11-2023 Procedure [facility] 11-19-2022 Procedure [facility]04-11-2023 Procedure note [facility]04-11-2023 Procedure [facility] 11-19-[address] Willingham [facility] November 18, 2022 10:26pm Note Date/Time November 18, 2022 10: 26pm [facility] Medical Records Department [address] [facility] [place] [address] Emergency Department Summary 11/18/22 MR#: [id number] Acct: [id number] Name: TRACIE CHAN Rep #:[id number] : 1940 82 From: Jose Willingham DO PCP: Dr. Kiara Geronimo MD Status:ADM IN Location: [place] BV173-7 HPI History of Present Illness Chief Complaint: Abn Labs Narrative Narrative: 82-year-old female presenting with anemia. She states that for the last couple of weeks she has felt weak, lightheaded, little short of breath. She is definitely pale. No history of black or bloody stools. She thought that she had something viral initially and stated she started to feel better but then never did. She has continued nausea over the last couple of weeks. She has notcomplained of any pain. No vomiting. Patient states he does have a history of anemia. No fevers, chills, cough. PFSH PFSH Medical History DDD (degenerative disc disease), lumbar Spinal stenosis Tobacco abuse Home Medications magnesium 200 mg tablet 200 mg PO DAILY SUPPLEMENT 11/19/17 [History Last Taken 11/17/22] vitamin B complex (B Complex 1 tablet) 1 tab PO QDAY 11/19/17 [History Last Taken 11/17/22] aspirin 325 mg tablet 325 mg PO DAILY PRN Pain 03/20/22 [History Last Taken Unknown] brimonidine 0.2 %-timolol 0.5 % eye drops (Combigan) 1 drp EACH EYE BID . 11/18/22 [History Last Taken 11/18/22] cholecalciferol (vitamin D3) 25 mcg (1,000 unit) tablet (Vitamin D3) 25 mcg PO DAILY SUPPLEMENT 11/18/22 [History Last Taken 11/17/22] Allergy/AdvReac Type Severity Reaction Status Date / Time meperidine [From Demerol] Allergy Unknown Verified 11/18/22 16:52 Family History Mother Cancer Father Cancer Sister Cancer Surgical History H/O: hysterectomy Social History Smoking Status: Current every day smoker tobacco type: cigarettes ROS ROS ED Constitutional Constitutional ED: Denies chills or fever(s) Eyes Eyes: Denies change in vision or diplopia ENT ENT ED: Denies rhinorrhea or sore throat Cardiovascular Cardiovascular: Denies chest pain or palpitations Respiratory/Chest Respiratory/Chest: Reports dyspnea and dyspnea on exertion Gastrointestinal Gastrointestinal: Denies abdominal pain Genitourinary Genitourinary ED: Denies dysuria or hematuria Musculoskeletal Musculoskeletal: Denies arthralgias Integumentary Reports other Details: Pale skin ; Denies abscess or Abrasions Neurologic Neurologic: Denies headache(s) Psychiatric Psychiatric: Denies anxiety or depression Hematologic/Lymphatic Hematologic/Lymphatic: Reports anemia; Denies easy bleeding EXAM Physical Exam Const Vital Signs: 11/18/22 16:51 11/18/22 18:11 Temperature 98.6 F Temperature Source Temporal Pulse Rate 86 Respiratory Rate 16 Respiratory Effort Normal Respiratory Pattern Normal Blood Pressure 134/63 H Blood Pressure Mean 86 Pulse Ox 98 Oxygen Delivery Method Room Air Positive well nourished General Appearance ED: NAD and pallor HEENT Reports moist mucous membranes Negative for trauma Eyes PERRL and EOMs intact bilaterally General Eye ED: Yes pale conjunctiva Chest Wall inspection of chest normal Resp normal respiratory effort and clear to auscultation bilaterally Auscultation: Negative for rales or rhonchi Cardio regular rate and regular rhythm GI normal to inspection, nondistended, normoactive bowel sounds Neuro oriented x3 and CN's II-XII intact bilaterally Sensorium / Orientation: alert Motor Exam: strength 5/5 throughout Skin no rashes or lesions noted General Skin Exam: pallor; Negative for jaundice MDM MDM MDM Narrative Medical decision making narrative: Patient presenting with anemia. Her hemoglobin is 6.5 today. White blood count7.7. He does not like she has an iron deficiency anemia looking at her blood work on her CBC. Patient was typed and screened as well as crossmatched she is symptomatic and her hemoglobin is down below 7. She does give a history of nausea for the last 2 weeks. No black or bloody stools. Hemoccult negative. Liver function normal. Renal function electrolytes unremarkable. Discussed with Dr. Navarro who stated that he agreed she need to be admitted and probably have upper endoscopy performed. This is discussed with the patient. Discussed with the hospitalist for admission who recommended iron binding which were ordered. Impression: 1. Acute blood loss anemia 2. GI bleed Lab Data Attestation: I reviewed the patient's lab results. Labs: Laboratory Results - last 24 hr 11/18/22 11/18/22 11/18/22 17:23 17:23 17:23 WBC 7.7 RBC 3.24 L Hgb 6.5 L Hct 23.5 L MCV 72.5 L MCH 20.1 L MCHC 27.7 L RDW Std Deviation 48.6 H RDW Coeff of Shay 18.5 H Plt Count 365 MPV 10.5 Immature Gran % (Auto) 0.400 Neut % (Auto) 61.0 Lymph % (Auto) 24.8 Pierce % (Auto) 10.6 H Eos % (Auto) 2.5 Baso % (Auto) 0.7 Absolute Neuts (auto) 4.7 Absolute Lymphs (auto) 1.90 Nucleated RBC % 0.3 PT INR Sodium Potassium Chloride Carbon Dioxide Anion Gap BUN Creatinine Estim Creat Clear Calc Est GFR (MDRD) Af Amer Est GFR (MDRD) Non-Af BUN/Creatinine Ratio Glucose Calcium Total Bilirubin Direct Bilirubin AST ALT Alkaline Phosphatase Total Protein Albumin Globulin Blood Type A NEGATIVE Antibody Screen NEGATIVE Crossmatch See Detail 11/18/22 11/18/22 11/18/22 18:10 19:21 19:21 WBC RBC Hgb Hct MCV MCH MCHC RDW Std Deviation RDW Coeff of Shay Plt Count MPV Immature Gran % (Auto) Neut % (Auto) Lymph % (Auto) Pierce % (Auto) Eos % (Auto) Baso % (Auto) Absolute Neuts (auto) Absolute Lymphs (auto) Nucleated RBC % PT 12.2 INR 0.9 Sodium 138 Potassium 3.9 Chloride 108 H Carbon Dioxide 26.0 Anion Gap 4 L BUN 16 Creatinine 0.68 Estim Creat Clear Calc 42.91 Est GFR (MDRD) Af Amer 107 Est GFR (MDRD) Non-Af 88 BUN/Creatinine Ratio 23.6 H Glucose 100 Calcium 8.8 Total Bilirubin 0.20 Direct Bilirubin 0.06 AST 17 ALT 19 Alkaline Phosphatase 94 Total Protein 7.8 Albumin 3.5 Globulin 4.3 H Blood Type Antibody Screen Crossmatch Discharge Plan Triage Chief Complaint: Abn Labs ED Provider: Jose Willingham Dx/Rx/DC Orders Primary Care Provider: Kiara Geronimo What to do if you have Problems For any increased pain, shortness of breath, bleeding, nausea or vomiting, chestpain, or any unexpected problems, contact your Primary Care Provider. Call [facility] ([phone]) or report to the closest Emergency Room. Call 911 if necessary. 11/18/222225 <Electronically signed by Jose Willingham DO> Cosigner Signature (if applicable): CC: Dr. Kiara Geronimo MD ~ Signed [facility] Work Phone: [phone] 884-245704-11-2023 History and physical note Author Dr. Rose [facility] November 18, 2022 10:21pm Note Date/Time November 18, 2022 9:3 0pm [facility] Medical Records Department [address] [place] [address] H&P Exam - Hospitalist 11/18/222128 MR#: [id number] Acct: [id number] Name: TRACIE CHAN Rep #:[id number] : 1940 82 From: Nahed Rose DO PCP: Dr. Kiara Geronimo MD Status:ADM IN Location: [facility] [id number] HPI - General General Date of Admission: 11/18/22 Date of Service: 11/18/22 Chief Complaint: Abn Lab HPI Narrative TRACIE CHAN, is a 82 F who presented from her primary care physician's office to the emergency department at [facility] with abnormal lab values. Patient has been experiencing increased fatigue and shortness of breath over the last 2 weeks. She states really about 4 weeks ago she had upperrespiratory tract infection and thought this was all related to that. But she has not improved so she went to her doctor today. At her primary care physician's office lab were drawn and she was noticed to be anemic and sent to the emergency department. The patient denies any abdominal pain, nausea, vomiting, diarrhea or constipation. She has had no melena or hematochezia. Shehas had no hematemesis. She has never had a colonoscopy. She does smoke approximately 1/2 pack cigarettes daily and has done so for a long time. She takes no blood thinners at home other than aspirin as needed for pain and deniesany use of other NSAIDs on a regular basis. Vital signs on presentation demonstrated temperature of 98.6, blood pressure 134/63, heart rate 86, respiratory rate is 16 and oxygen saturations are 98% on room air. CBC shows normal white count with a hemoglobin of 6.9 and an MCV of 72.5. Platelet counts are normal. Coags are normal. Chemistry panel is unremarkable. I did asked the emergency department physician to get iron studies and retake count which I do not have the results of. Her total iron andsaturation are both very low at 12 and 2.6% respectively. TIBC is elevated at 466. She does have an elevated reticulocyte count at 2.21. Ferritin is 4. Hemoccult was negative. [facility] Medical History (Updated 11/18/22 @ 22:[address] Nahed Rose DO) DDD (degenerative disc disease), lumbar Spinal stenosis Tobacco abuse Home Medications magnesium 200 mg tablet 200 mg PO DAILY SUPPLEMENT 11/19/17 [History Last Taken 11/17/22] vitamin B complex (B Complex 1 tablet) 1 tab PO QDAY 11/19/17 [History Last Taken 11/17/22] aspirin 325 mg tablet 325 mg PO DAILY PRN Pain 03/20/22 [History Last Taken Unknown] brimonidine 0.2 %-timolol 0.5 % eye drops (Combigan) 1 drp EACH EYE BID . 11/18/22 [History Last Taken 11/18/22] cholecalciferol (vitamin D3) 25 mcg (1,000 unit) tablet (Vitamin D3) 25 mcg PO DAILY SUPPLEMENT 11/18/22 [History Last Taken 11/17/22] Allergy/AdvReac Type Severity Reaction Status Date / Time meperidine [From Demerol] Allergy Unknown Verified 11/18/22 16:52 Family History Mother Cancer Father Cancer Sister Cancer Surgical History H/O: hysterectomy Social History Smoking Status: Current every day smoker tobacco type: cigarettes ROS Constitutional Constitutional: Reports fatigue, malaise and weakness; Denies anorexia, change in weight, chills, fever(s), night sweats or other Eyes Eyes: Denies blurry vision, change in eye color, change in vision, discharge from eye(s), double vision, erythema, eye pain, loss of vision or other ENT HEENT: Denies abnormal hearing, dysphagia, ear pain, epistaxis, headache(s), hearing loss, nasal congestion, nasal discharge, post nasal drip, sinus pressure, sore throat or other Cardiovascular Cardiovascular: Reports dyspnea on exertion; Denies chest pain, claudication, edema, lightheadedness, orthopnea, palpitations, paroxysmal nocturnal dyspnea, rapid heart rate, syncope or other Respiratory/Chest Respiratory/Chest: Reports cough, dyspnea and shortness of breath with exertion;Denies excessive phlegm production, hemoptysis, productive cough, shortness of breath at rest, wheezing or other Gastrointestinal Gastrointestinal: Denies abdominal pain, coffee ground emesis, constipation, diarrhea, dyspepsia, hematemesis, hematochezia, loose stools, melena, nausea, vomiting or other Genitourinary Genitourinary: Denies burning urination, difficulty urinating, dysuria, hematuria, nocturia, urinary frequency, urinary hesitancy, urinary incontinence,urinary urgency or other Musculoskeletal Musculoskeletal: Reports back pain; Denies arthralgias, joint pain, joint stiffness, joint swelling, myalgias, neck pain or other Neurologic Neurologic: Denies abnormal gait, abnormal speech, confusion, disequilibrium, dizziness, focal weakness, headache(s), numbness, paresthesias, seizure-like activity, seizures, syncope, tingling, tremor(s) or other Psychiatric Psychiatric: Denies anxiety, depression, homicidal ideation, suicidal ideation or other Endocrine Endocrinology: Denies change in body appearance, cold intolerance, excessive sweating, heat intolerance, polydipsia, polyuria or other Hematologic/Lymphatic Hematologic/Lymphatic: Denies anemia, easy bleeding, easy bruising, lymphadenopathy or other Allergic/Immunologic Allergic/Immunologic: Denies rhinitis, hives, eczemia, asthma or other Vital Signs Vital Signs Vital Signs: 11/18/22 16:51 11/18/22 18:11 Temperature 98.6 F Temperature Source Temporal Pulse Rate 86 Respiratory Rate 16 Respiratory Effort Normal Respiratory Pattern Normal Blood Pressure 134/63 H Blood Pressure Mean 86 Pulse Ox 98 Oxygen Delivery Method Room Air Weight Weight: 65.771 kg Body Mass Index (BMI) 22.7 Physical Exam Const alert, oriented x3, no apparent distress and well nourished Constitutional Narrative: Elderly white female, sitting up in a chair at the bedside, family at bedside, patient appears comfortable and nontoxic General Appearance: cooperative HEENT normocephalic, head/scalp atraumatic, hearing grossly normal bilaterally and moist oral mucous membranes HEENT Narrative: Dentures in place, Mallampati 2, no thrush Eyes PERRL and EOMs intact bilaterally; Negative for conjunctivae normal Eyes Narrative: Significantly pale conjunctiva bilaterally, no scleral icterus Neck no lymphadenopathy, supple, no JVD and no carotid bruits Neck Narrative: Trachea midline, no thyroid enlargement Resp normal respiratory effort, no retractions, no use of accessory muscles and clearto auscultation bilaterally Resp Narrative: Diffusely diminished but clear Auscultation: Negative for rales, rhonchi or wheezes Cardio regular rate, regular rhythm, S1 normal heart sound, S2 normal heart sound, no murmurs, no rub, no gallops and no clicks GI normal to inspection, nondistended, normoactive bowel sounds, soft to palpation and non-tender Extremity no clubbing, cyanosis or edema Extremity Narrative: 2+ pedal pulses Skin no wounds, skin turgor normal, no jaundice, no petechiae and no mottling Skin Narrative: Pale, palmar creases are extremely pale, skin changes consistent with previous sun exposure Neuro oriented x3, CN's II-XII intact bilaterally, moves all extremities and no focal motor deficits Speech: speech normal Psych affect normal Psych Narrative: Very pleasant, eye contact is good, patient was appropriately interactive Results Lab / Micro Data Attestation: I reviewed the patient's lab results. Result Diagrams: 11/18/22 21:24 11/18/22 18:10 Labs: Laboratory Results - last 24 hr 11/18/22 17:23: WBC 7.7, RBC 3.24 L, Hgb 6.5 L, Hct 23.5 L, MCV 72.5 L, MCH 20.1L, MCHC 27.7 L, RDW Std Deviation 48.6 H, RDW Coeff of Shay 18.5 H, Plt Count 365, MPV 10.5, Immature Gran % (Auto) 0.400, Neut % (Auto) 61.0, Lymph % (Auto) 24.8, Pierce % (Auto) 10.6 H, Eos % (Auto) 2.5, Baso % (Auto) 0.7, Absolute Neuts (auto) 4.7, Absolute Lymphs (auto) 1.90, Nucleated RBC % 0.3 11/18/22 17:23: Blood Type A NEGATIVE, Antibody Screen NEGATIVE 11/18/22 18:10: Sodium 138, Potassium 3.9, Chloride 108 H, Carbon Dioxide 26.0, Anion Gap 4 L, BUN 16, Creatinine 0.68, Estim Creat Clear Calc 42.91, Est GFR (MDRD) Af Amer 107, Est GFR (MDRD) Non-Af 88, BUN/Creatinine Ratio 23.6 H, Glucose 100, Calcium 8.8 11/18/22 19:21: PT 12.2, INR 0.9 11/18/22 19:21: Total Bilirubin 0.20, Direct Bilirubin 0.06, AST 17, ALT 19, Alkaline Phosphatase 94, Total Protein 7.8, Albumin 3.5, Globulin 4.3 H Micro: Microbiology 11/18/22 19:15 Stool Stool Occult Blood (NINA) - Final Assessment & Plan Assessment/Plan (1) Acute anemia: (2) GIB (gastrointestinal bleeding): PLAN: Plan Acute anemia secondary to suspected GI bleed -Highly suspect lower even though guaiac negative -Iron studies are indicative of iron deficiency -Patient has never had colonoscopy and with the findings I be concerned about a malignancy -Plan is for colonoscopy and EGD tomorrow per discussion with Dr. Navarro -Bowel prep ordered -Clear liquid diet until midnight then n.p.o. other than bowel prep -Start IV fluids at midnight at 50 cc/h with LR -GI consultation-discussed with Dr. Navarro Iron deficiency anemia -Hemoglobin is 6.7 -1 unit packed red blood cells is ordered to be given -We will start IV iron tonight and then to be given daily for 2 more days -Recommend initiating oral iron at the time of discharge -Cycle hemoglobin x2 every 6 hours -Repeat CBC in a.m. Glaucoma -Continue home eyedrops Spinal stenosis -As needed Tylenol for pain Tobacco abuse -Recommend cessation -Currently smokes 1/2 pack of cigarettes daily -Offered nicotine replacement patient deferred at this time DVT prophylaxis -Chemoprophylaxis contraindicated secondary to severe anemia and suspected GI bleed -SCDs CODE STATUS -Full code as reviewed prior to admission with the patient Charges/Coding Visit Charges Inpatient E&M: 72732 Init Hosp L2 11/18/222220 <Electronically signed by Nahed Rose DO> Cosigner Signature (if applicable): CC: Dr. Kiara Geronimo MD; Dr. Nahed Rose DO~ Signed [facility] Work Phone: 1(261) 231-803204-10-[address] Willingham [facility] November 18, 2022 10:26pm Note Date/Time November 18, 2022 10: 26pm [facility] Medical Records Department [address] [place] [address] Emergency Department Summary 11/18/22 MR#: [id number] Acct: [id number] Name: TRACIE CHAN Rep #:[id number] : 1940 82 From: Jose Willingham DO PCP: Dr. Kiara Geronimo MD Status:ADM IN Location: [place] [address] HPI History of Present Illness Chief Complaint: Abn Labs Narrative Narrative: 82-year-old female presenting with anemia. She states that for the last couple of weeks she has felt weak, lightheaded, little short of breath. She is definitely pale. No history of black or bloody stools. She thought that she had something viral initially and stated she started to feel better but then never did. She has continued nausea over the last couple of weeks. She has notcomplained of any pain. No vomiting. Patient states he does have a history of anemia. No fevers, chills, cough. [facility] Medical History DDD (degenerative disc disease), lumbar Spinal stenosis Tobacco abuse Home Medications magnesium 200 mg tablet 200 mg PO DAILY SUPPLEMENT 11/19/17 [History Last Taken 11/17/22] vitamin B complex (B Complex 1 tablet) 1 tab PO QDAY 11/19/17 [History Last Taken 11/17/22] aspirin 325 mg tablet 325 mg PO DAILY PRN Pain 03/20/22 [History Last Taken Unknown] brimonidine 0.2 %-timolol 0.5 % eye drops (Combigan) 1 drp EACH EYE BID . 11/18/22 [History Last Taken 11/18/22] cholecalciferol (vitamin D3) 25 mcg (1,000 unit) tablet (Vitamin D3) 25 mcg PO DAILY SUPPLEMENT 11/18/22 [History Last Taken 11/17/22] Allergy/AdvReac Type Severity Reaction Status Date / Time meperidine [From Demerol] Allergy Unknown Verified 11/18/22 16:52 Family History Mother Cancer Father Cancer Sister Cancer Surgical History H/O: hysterectomy Social History Smoking Status: Current every day smoker tobacco type: cigarettes ROS ROS ED Constitutional Constitutional ED: Denies chills or fever(s) Eyes Eyes: Denies change in vision or diplopia ENT ENT ED: Denies rhinorrhea or sore throat Cardiovascular Cardiovascular: Denies chest pain or palpitations Respiratory/Chest Respiratory/Chest: Reports dyspnea and dyspnea on exertion Gastrointestinal Gastrointestinal: Denies abdominal pain Genitourinary Genitourinary ED: Denies dysuria or hematuria Musculoskeletal Musculoskeletal: Denies arthralgias Integumentary Reports other Details: Pale skin ; Denies abscess or Abrasions Neurologic Neurologic: Denies headache(s) Psychiatric Psychiatric: Denies anxiety or depression Hematologic/Lymphatic Hematologic/Lymphatic: Reports anemia; Denies easy bleeding EXAM Physical Exam Const Vital Signs: 11/18/22 16:51 11/18/22 18:11 Temperature 98.6 F Temperature Source Temporal Pulse Rate 86 Respiratory Rate 16 Respiratory Effort Normal Respiratory Pattern Normal Blood Pressure 134/63 H Blood Pressure Mean 86 Pulse Ox 98 Oxygen Delivery Method Room Air Positive well nourished General Appearance ED: NAD and pallor HEENT Reports moist mucous membranes Negative for trauma Eyes PERRL and EOMs intact bilaterally General Eye ED: Yes pale conjunctiva Chest Wall inspection of chest normal Resp normal respiratory effort and clear to auscultation bilaterally Auscultation: Negative for rales or rhonchi Cardio regular rate and regular rhythm GI normal to inspection, nondistended, normoactive bowel sounds Neuro oriented x3 and CN's II-XII intact bilaterally Sensorium / Orientation: alert Motor Exam: strength 5/5 throughout Skin no rashes or lesions noted General Skin Exam: pallor; Negative for jaundice MDM MDM MDM Narrative Medical decision making narrative: Patient presenting with anemia. Her hemoglobin is 6.5 today. White blood count7.7. He does not like she has an iron deficiency anemia looking at her blood work on her CBC. Patient was typed and screened as well as crossmatched she is symptomatic and her hemoglobin is down below 7. She does give a history of nausea for the last 2 weeks. No black or bloody stools. Hemoccult negative. Liver function normal. Renal function electrolytes unremarkable. Discussed with Dr. Navarro who stated that he agreed she need to be admitted and probably have upper endoscopy performed. This is discussed with the patient. Discussed with the hospitalist for admission who recommended iron binding which were ordered. Impression: 1. Acute blood loss anemia 2. GI bleed Lab Data Attestation: I reviewed the patient's lab results. Labs: Laboratory Results - last 24 hr 11/18/22 11/18/22 11/18/22 17:23 17:23 17:23 WBC 7.7 RBC 3.24 L Hgb 6.5 L Hct 23.5 L MCV 72.5 L MCH 20.1 L MCHC 27.7 L RDW Std Deviation 48.6 H RDW Coeff of Shay 18.5 H Plt Count 365 MPV 10.5 Immature Gran % (Auto) 0.400 Neut % (Auto) 61.0 Lymph % (Auto) 24.8 Pierce % (Auto) 10.6 H Eos % (Auto) 2.5 Baso % (Auto) 0.7 Absolute Neuts (auto) 4.7 Absolute Lymphs (auto) 1.90 Nucleated RBC % 0.3 PT INR Sodium Potassium Chloride Carbon Dioxide Anion Gap BUN Creatinine Estim Creat Clear Calc Est GFR (MDRD) Af Amer Est GFR (MDRD) Non-Af BUN/Creatinine Ratio Glucose Calcium Total Bilirubin Direct Bilirubin AST ALT Alkaline Phosphatase Total Protein Albumin Globulin Blood Type A NEGATIVE Antibody Screen NEGATIVE Crossmatch See Detail 11/18/22 11/18/22 11/18/22 18:10 19:21 19:21 WBC RBC Hgb Hct MCV MCH MCHC RDW Std Deviation RDW Coeff of Shay Plt Count MPV Immature Gran % (Auto) Neut % (Auto) Lymph % (Auto) Pierce % (Auto) Eos % (Auto) Baso % (Auto) Absolute Neuts (auto) Absolute Lymphs (auto) Nucleated RBC % PT 12.2 INR 0.9 Sodium 138 Potassium 3.9 Chloride 108 H Carbon Dioxide 26.0 Anion Gap 4 L BUN 16 Creatinine 0.68 Estim Creat Clear Calc 42.91 Est GFR (MDRD) Af Amer 107 Est GFR (MDRD) Non-Af 88 BUN/Creatinine Ratio 23.6 H Glucose 100 Calcium 8.8 Total Bilirubin 0.20 Direct Bilirubin 0.06 AST 17 ALT 19 Alkaline Phosphatase 94 Total Protein 7.8 Albumin 3.5 Globulin 4.3 H Blood Type Antibody Screen Crossmatch Discharge Plan Triage Chief Complaint: Abn Labs ED Provider: Jose Willingham Dx/Rx/DC Orders Primary Care Provider: Kiara Geronimo What to do if you have Problems For any increased pain, shortness of breath, bleeding, nausea or vomiting, chestpain, or any unexpected problems, contact your Primary Care Provider. Call [facility] ([phone]) or report to the closest Emergency Room. Call 911 if necessary. 11/18/222225 <Electronically signed by Jose Willingham DO> Cosigner Signature (if applicable): CC: Dr. Kiara Geronimo MD ~ Signed [facility] Work Phone: Discharge summary Author Dr. Newton [facility] November 19, 2022 7:35pm Note Date/Time November 19, 2022 7:2 2pm [facility] Medical Records Department [address] [place] [address] Instructions for Home/Discharge Instructions 11/19/221921 MR#: [id number] Acct: [id number] Name: TRACIE CHAN Rep #:[id number] : 1940 82 From: Dylon Spicer PCP: Dr. Kiara Geronimo MD Status:ADM IN Discharge Instructions Diet Discharge Diet: No restrictions Activity Discharge Activity: Return to Normal Activity and May Not Drive Weight Bearing Status: Weight bearing as tolerated Dressing / Incision Call your doctor if you observe: Fever of 101 or Higher, Coldness, Increased Pain, Numbness or Tingling, Change in Color, Inability to urinate, Inability to have a bowel movement, Using more than 1 pad per hour, Shortness of breath, Dizziness, Fainting spells, Swelling in the ankles, Chest pain, Prolonged hiccupping, Increased palpitations (irregular heartbeat) and Calf discomfort Follow Up Care When: IN 2 WEEKS Test Results: Test results from this visit will be discussed in further detail at your follow- up appointment, if applicable. Discharge Plan Admission Admit Date/Time: 11/18/22 21:21 Primary Reason for Your Visit: severe iron deficiency anemia Attending Provider: Dylon Newton Primary Care Provider: Kiara Geronimo Consulting Providers: Nahed Rose Discharge Orders/Prescriptions Prescriptions: New ferrous sulfate [FeroSul] 325 mg (65 mg iron) tablet 325 mg PO DAILY Qty: 30 2RF ascorbic acid (vitamin C) 500 mg tablet 500 mg PO DAILY Qty: 30 2RF pantoprazole [Protonix] 40 mg tablet,delayed release (DR/EC) 40 mg PO DAILY Qty: 30 1RF Continued vitamin B complex [B Complex 1] tablet 1 tab PO QDAY magnesium 200 mg tablet 200 mg PO DAILY cholecalciferol (vitamin D3) [Vitamin D3] 25 mcg (1,000 unit) Tablet 25 mcg PO DAILY brimonidine-timolol [Combigan] 0.2-0.5 % drops 1 drp EACH EYE BID Label Comments: INSTILL 1 DROP INTO EACH EYE TWICE DAILY Held aspirin 325 mg tablet 325 mg PO DAILY PRN (Reason: Pain) Hold Instructions: Hold for 1 week and if needed, consider baby enteric coated aspirin Referrals / Follow Up: Kiara Geronimo MD [Primary Care Provider] - Friend,DO Lon [Med Staff - Active Staff] - Within 2 Weeks (capsule endoscopy) Disposition Disposition (needs filled in before D/C Order can be placed): Home, Self Care 11/19/221934<Electronically signed by Dylon Newton MD>Dylon Newton MD CC: Dr. Kiara Geronimo MD; Dr. Nahed Rose DO ~ Signed [facility] Work Phone: Evaluation noteNo assessment information available [facility] Work Phone: Evaluation note* Diagnosis Onset Date Resolution Status Acute anemia acute GIB (gastrointestinal bleeding) acute [facility] Work Phone: History and physical note Author Dr. Rose [facility] November 18, 2022 10:21pm Note Date/Time November 18, 2022 9:3 0pm [facility] Medical Records Department [address] [place] [address] H&P Exam - Hospitalist 11/18/222128 MR#: [id number] Acct: [id number] Name: TRACIE CHAN Rep #:[id number] 26 : 1940 82 From: Nahed Rose DO PCP: Dr. Kiara Geronimo MD Status:ADM IN Location: [facility] [place] [id number] HPI - General General Date of Admission: 11/18/22 Date of Service: 11/18/22 Chief Complaint: Abn Lab HPI Narrative TRACIE CHAN, is a 82 F who presented from her primary care physician's office to the emergency department at [facility] with abnormal lab values. Patient has been experiencing increased fatigue and shortness of breath over the last 2 weeks. She states really about 4 weeks ago she had upperrespiratory tract infection and thought this was all related to that. But she has not improved so she went to her doctor today. At her primary care physician's office lab were drawn and she was noticed to be anemic and sent to the emergency department. The patient denies any abdominal pain, nausea, vomiting, diarrhea or constipation. She has had no melena or hematochezia. Shehas had no hematemesis. She has never had a colonoscopy. She does smoke approximately 1/2 pack cigarettes daily and has done so for a long time. She takes no blood thinners at home other than aspirin as needed for pain and deniesany use of other NSAIDs on a regular basis. Vital signs on presentation demonstrated temperature of 98.6, blood pressure 134/63, heart rate 86, respiratory rate is 16 and oxygen saturations are 98% on room air. CBC shows normal white count with a hemoglobin of 6.9 and an MCV of 72.5. Platelet counts are normal. Coags are normal. Chemistry panel is unremarkable. I did asked the emergency department physician to get iron studies and retake count which I do not have the results of. Her total iron andsaturation are both very low at 12 and 2.6% respectively. TIBC is elevated at 466. She does have an elevated reticulocyte count at 2.21. Ferritin is 4. Hemoccult was negative. [facility] Medical History (Updated 11/18/22 @ 22:[address] Nahed Rose DO) DDD (degenerative disc disease), lumbar Spinal stenosis Tobacco abuse Home Medications magnesium 200 mg tablet 200 mg PO DAILY SUPPLEMENT 11/19/17 [History Last Taken 11/17/22] vitamin B complex (B Complex 1 tablet) 1 tab PO QDAY 11/19/17 [History Last Taken 11/17/22] aspirin 325 mg tablet 325 mg PO DAILY PRN Pain 03/20/22 [History Last Taken Unknown] brimonidine 0.2 %-timolol 0.5 % eye drops (Combigan) 1 drp EACH EYE BID . 11/18/22 [History Last Taken 11/18/22] cholecalciferol (vitamin D3) 25 mcg (1,000 unit) tablet (Vitamin D3) 25 mcg PO DAILY SUPPLEMENT 11/18/22 [History Last Taken 11/17/22] Allergy/AdvReac Type Severity Reaction Status Date / Time meperidine [From Demerol] Allergy Unknown Verified 11/18/22 16:52 Family History Mother Cancer Father Cancer Sister Cancer Surgical History H/O: hysterectomy Social History Smoking Status: Current every day smoker tobacco type: cigarettes ROS Constitutional Constitutional: Reports fatigue, malaise and weakness; Denies anorexia, change in weight, chills, fever(s), night sweats or other Eyes Eyes: Denies blurry vision, change in eye color, change in vision, discharge from eye(s), double vision, erythema, eye pain, loss of vision or other ENT HEENT: Denies abnormal hearing, dysphagia, ear pain, epistaxis, headache(s), hearing loss, nasal congestion, nasal discharge, post nasal drip, sinus pressure, sore throat or other Cardiovascular Cardiovascular: Reports dyspnea on exertion; Denies chest pain, claudication, edema, lightheadedness, orthopnea, palpitations, paroxysmal nocturnal dyspnea, rapid heart rate, syncope or other Respiratory/Chest Respiratory/Chest: Reports cough, dyspnea and shortness of breath with exertion;Denies excessive phlegm production, hemoptysis, productive cough, shortness of breath at rest, wheezing or other Gastrointestinal Gastrointestinal: Denies abdominal pain, coffee ground emesis, constipation, diarrhea, dyspepsia, hematemesis, hematochezia, loose stools, melena, nausea, vomiting or other Genitourinary Genitourinary: Denies burning urination, difficulty urinating, dysuria, hematuria, nocturia, urinary frequency, urinary hesitancy, urinary incontinence,urinary urgency or other Musculoskeletal Musculoskeletal: Reports back pain; Denies arthralgias, joint pain, joint stiffness, joint swelling, myalgias, neck pain or other Neurologic Neurologic: Denies abnormal gait, abnormal speech, confusion, disequilibrium, dizziness, focal weakness, headache(s), numbness, paresthesias, seizure-like activity, seizures, syncope, tingling, tremor(s) or other Psychiatric Psychiatric: Denies anxiety, depression, homicidal ideation, suicidal ideation or other Endocrine Endocrinology: Denies change in body appearance, cold intolerance, excessive sweating, heat intolerance, polydipsia, polyuria or other Hematologic/Lymphatic Hematologic/Lymphatic: Denies anemia, easy bleeding, easy bruising, lymphadenopathy or other Allergic/Immunologic Allergic/Immunologic: Denies rhinitis, hives, eczemia, asthma or other Vital Signs Vital Signs Vital Signs: 11/18/22 16:51 11/18/22 18:11 Temperature 98.6 F Temperature Source Temporal Pulse Rate 86 Respiratory Rate 16 Respiratory Effort Normal Respiratory Pattern Normal Blood Pressure 134/63 H Blood Pressure Mean 86 Pulse Ox 98 Oxygen Delivery Method Room Air Weight Weight: 65.771 kg Body Mass Index (BMI) 22.7 Physical Exam Const alert, oriented x3, no apparent distress and well nourished Constitutional Narrative: Elderly white female, sitting up in a chair at the bedside, family at bedside, patient appears comfortable and nontoxic General Appearance: cooperative HEENT normocephalic, head/scalp atraumatic, hearing grossly normal bilaterally and moist oral mucous membranes HEENT Narrative: Dentures in place, Mallampati 2, no thrush Eyes PERRL and EOMs intact bilaterally; Negative for conjunctivae normal Eyes Narrative: Significantly pale conjunctiva bilaterally, no scleral icterus Neck no lymphadenopathy, supple, no JVD and no carotid bruits Neck Narrative: Trachea midline, no thyroid enlargement Resp normal respiratory effort, no retractions, no use of accessory muscles and clearto auscultation bilaterally Resp Narrative: Diffusely diminished but clear Auscultation: Negative for rales, rhonchi or wheezes Cardio regular rate, regular rhythm, S1 normal heart sound, S2 normal heart sound, no murmurs, no rub, no gallops and no clicks GI normal to inspection, nondistended, normoactive bowel sounds, soft to palpation and non-tender Extremity no clubbing, cyanosis or edema Extremity Narrative: 2+ pedal pulses Skin no wounds, skin turgor normal, no jaundice, no petechiae and no mottling Skin Narrative: Pale, palmar creases are extremely pale, skin changes consistent with previous sun exposure Neuro oriented x3, CN's II-XII intact bilaterally, moves all extremities and no focal motor deficits Speech: speech normal Psych affect normal Psych Narrative: Very pleasant, eye contact is good, patient was appropriately interactive Results Lab / Micro Data Attestation: I reviewed the patient's lab results. Result Diagrams: 11/18/22 21:24 11/18/22 18:10 Labs: Laboratory Results - last 24 hr 11/18/22 17:23: WBC 7.7, RBC 3.24 L, Hgb 6.5 L, Hct 23.5 L, MCV 72.5 L, MCH 20.1L, MCHC 27.7 L, RDW Std Deviation 48.6 H, RDW Coeff of Shay 18.5 H, Plt Count 365, MPV 10.5, Immature Gran % (Auto) 0.400, Neut % (Auto) 61.0, Lymph % (Auto) 24.8, Pierce % (Auto) 10.6 H, Eos % (Auto) 2.5, Baso % (Auto) 0.7, Absolute Neuts (auto) 4.7, Absolute Lymphs (auto) 1.90, Nucleated RBC % 0.3 11/18/22 17:23: Blood Type A NEGATIVE, Antibody Screen NEGATIVE 11/18/22 18:10: Sodium 138, Potassium 3.9, Chloride 108 H, Carbon Dioxide 26.0, Anion Gap 4 L, BUN 16, Creatinine 0.68, Estim Creat Clear Calc 42.91, Est GFR (MDRD) Af Amer 107, Est GFR (MDRD) Non-Af 88, BUN/Creatinine Ratio 23.6 H, Glucose 100, Calcium 8.8 11/18/22 19:21: PT 12.2, INR 0.9 11/18/22 19:21: Total Bilirubin 0.20, Direct Bilirubin 0.06, AST 17, ALT 19, Alkaline Phosphatase 94, Total Protein 7.8, Albumin 3.5, Globulin 4.3 H Micro: Microbiology 11/18/22 19:15 Stool Stool Occult Blood (NINA) - Final Assessment & Plan Assessment/Plan (1) Acute anemia: (2) GIB (gastrointestinal bleeding): PLAN: Plan Acute anemia secondary to suspected GI bleed -Highly suspect lower even though guaiac negative -Iron studies are indicative of iron deficiency -Patient has never had colonoscopy and with the findings I be concerned about a malignancy -Plan is for colonoscopy and EGD tomorrow per discussion with Dr. Navarro -Bowel prep ordered -Clear liquid diet until midnight then n.p.o. other than bowel prep -Start IV fluids at midnight at 50 cc/h with LR -GI consultation-discussed with Dr. Navarro Iron deficiency anemia -Hemoglobin is 6.7 -1 unit packed red blood cells is ordered to be given -We will start IV iron tonight and then to be given daily for 2 more days -Recommend initiating oral iron at the time of discharge -Cycle hemoglobin x2 every 6 hours -Repeat CBC in a.m. Glaucoma -Continue home eyedrops Spinal stenosis -As needed Tylenol for pain Tobacco abuse -Recommend cessation -Currently smokes 1/2 pack of cigarettes daily -Offered nicotine replacement patient deferred at this time DVT prophylaxis -Chemoprophylaxis contraindicated secondary to severe anemia and suspected GI bleed -SCDs CODE STATUS -Full code as reviewed prior to admission with the patient Charges/Coding Visit Charges Inpatient E&M: 04948 Init Hosp L2 11/18/221 <Electronically signed by Nahed Rose DO> Cosigner Signature (if applicable): CC: Dr. Kiara Geronimo MD; Dr. Nahed Rose DO~ Signed [facility] Work Phone: Summary Purpose Family History No Family History Records Found Relationship Condition Age at Onset Recorded Date/T jie mother Malignant neoplasm Unknown father Malignant neoplasm Unknown sister Malignant neoplasm Unknown Advance Directives No Advanced Directives Records Found Advance Directive Response Recorded Date/ Time Living Will No June 06 5:23pm Power of Laser Operator No June 06, 2021 5:23pm Advance Directive Response Recorded Date/ Time Living Will No November 18, 2022 10:52pm Power of Laser Operator No November 18 10:52pm Chief Complaint and Reason for Visit Chief Complaint spinal stenosis Chief Complaint spinal stenosis LUMBAR SPINAL STENOSIS Chief Complaint LAB AND CHEST XRAY SEVERE ANEMIA SEVERE ANEMIA Reason for Visit Acute anemia GIB (gastrointestinal bleeding) Chief Complaint LAB AND CHEST XRAY SEVERE ANEMIA SEVERE ANEMIA SEVERE ANEMIA SEVERE ANEMIA Reason for Visit Acute anemia GIB (gastrointestinal bleeding) Chief Complaint LAB AND CHEST XRAY SEVERE ANEMIA SEVERE ANEMIA SEVERE ANEMIA PREOP SEVERE ANEMIA EORDER Additional Source Comments INFORMATION SOURCE (unrecogn ized section and content) DATE CREATED AUTHOR 07/20/2018 [facility] DATE CREATED AUTHOR AUTHOR'S ORGANIZ ATION 09/29/2018 [facility] DATE CREATED AUTHOR AUTHOR'S ORGANIZ ATION 03/01/2024 [facility] Goals (unrecognized section and content) Goals may be documented in a n alternate sectionGoals may be documented in an alternate sectionGoals may be documented in an alternate section Care Teams (unrecognized sec tion and content) Team Status: Active Member Role Status Dates Dr. Kiara Geronimo MD Family Provider Active Dr. Kiara Geronimo MD Primary Care Provider Active Team Status: Active Member Role Status Dates Dr. Kiara Geronimo MD Primary Care Provider Active Dr. Jose Willingham DO Emergency Provider Active Dr. Nahed Rose DO Admit Provider, Att ending Provider, Other Provider Active Team Status: Active Member Role Status Dates Dr. Kiara Geronimo MD Primary Care Prov ider, Attending Provider, Referring Provider Active Team Status: Active Member Role Status Dates Dr. Kiara Geronimo MD Primary Care Provider Active Dr. Jose Willingham DO Emergency Provider Active Dr. Nahed Rose DO Admit Provider, Attending Provide r Active Team Status: Active Member Role Status Dates Dr. Kiara Geronimo MD Primary Care Provider Active Dr. Jose Willingham DO Emergency Provider Active Dr. Nahed Rose DO Admit Provider, Other Provider Ac tive Dr. Dylon Newton MD Other Provider Active Dr. Lon Navarro DO Attending Provider Active Team Status: Active Member Role Status Dates Dr. Kiara Geronimo MD Primary Care Provider Active Dr. Lon Navarro , DO Attending Provider Active Team Status: Active Member Role Status Dates Dr. Kiara Geronimo MD Primary Care Provider Active Dr. Jose Willingham , Emergency Provider Active Dr. Nahed Rose , DO Admit Provider, Other Provider Ac tive Dr. Dylon Newton MD Attending Provider, Other Provi isaac Active Team Status: Inactive Member Role Status Dates Dr. Kiara Geronimo MD Primary Care Provider Active Dr. Jose Willingham , Emergency Provider Active Dr. Nahed Rose , DO Admit Provider, Other Provider Ac tive Dr. Dylon Newton MD Attending Provider Active Team Status: Active Member Role Status Dates Dr. Kiara Geronimo MD Primary Care Provider Active Dr. Pj Tabor MD Attending Provider Active Dr. Nahed Rose , Referring Provider Active Team Status: Inactive Member Role Status Dates Dr. Kiara Geronimo MD Primary Care Prov ider, Attending Provider, Referring Provider Active FOR RECORDS PERTAINING TO PATIENTS WHO ARE OR HAVE BEEN ENROLLED IN A CHEMICAL DEPENDENCY/SUBSTANCEABUSE PROGRAM, SOME INFORMATION MAY BE OMITTED. This clinical summary was aggregated from multiple sources. Caution should be exercised in using it in the provision of clinical care. This summary normalizes information from multiple sources, and as a consequence, information in this document may materially change the coding, format and clinical context of patient data. In addition, data may be omitted in some cases. CLINICAL DECISIONS SHOULD BE BASED ON THE PRIMARY CLINICAL RECORDS. [email or web address] provides no warranty or guarantee of the accuracy or completeness of information in this document.
--- OUTSIDE RECORDS SUMMARY | 2025-03-18 15:19 | XMS RPT_ITS | CCD ---
Author Organization [facility] Care Team Providers Care Screening Nurse Name Role Phone Unavailable Unavailable Unavailable DILL, ANGELINE Unavailable Unavailable DILL, ANGELINE Unavailable Unavailable DILL, ANGELINE Unavailable Unavailable DILL, ANGELINE Unavailable Unavailable DILL, ANGELINE Unavailable Unavailable DILL, ANGELINE Unavailable Unavailable SAMANTHA CAROLINA Admitting Unavailable SAMANTHA CAROLINA Attending Unavailable Dr. Kiara Geronimo Primary Care Provider Dr. Jose Willingham Emergency Provider Dr. Nahed Rose Admit Provider Dr. Nahed Rose Attending Provider Dr. Nahed Rose Other Provider Dr. Dylon Newton Other Provider [phone] Friend, Dr. Forrest Attending Provider Dr. Dylon Newton Attending Provider [phone] Pj Tabor Attending Provider Dr. Nahed Rose Referring Provider Kiara Geronimo Attending Unavailable Kiara Geronimo Primary Care Unavailable Allergies Allergy Classification Reported Allergen(s) Allergy Type Date of Onset Reaction(s) Facility (7 sources) Meperidine; Translations: [MEPERIDINE] Drug Allergy 08-06-2018 Unknown [facility] Other [place] [facility] Medications Current Medications Medication Drug Class(es) [...] Absolute Lymph 1.80 X10 3/uL Normal 0.83-4.51 [facility] Comment on above: Order Comment: Order Date: 02/16/24 Order Info: 0184-1 - CBCD Performed By: #### L 100.0100, L503.6150 #### [facility] [address] [place], [address] Absolute Neut 3.4 X10 3/uL Normal 2.0-7.7 [facility] Comment on above: Order Comment: Order Date: 02/16/24 Order Info: 0184-1 - CBCD Performed By: #### L 100.0100, L503.6150 #### [facility] [address] [place], [address] Basophils/100 WBC (Bld) 0.5 % Normal 0-1 [facility] Comment on above: Order Comment: Order Date: 02/16/24 Order Info: 0184-1 - CBCD Performed By: #### L 100.0100, L503.6150 #### [facility] [address] [place], [address] Eosinophils/100 WBC (Bld) 2.2 % Normal 0-5 [facility] Comment on above: Order Comment: Order Date: 02/16/24 Order Info: 018-1 - CBCD Performed By: #### L 100.0100, [id number] #### [facility] [address] [place], [address] Erythrocyte distribution width (RBC) [Ratio] 15.3 % High 11.6-14.6 [facility] Comment on above: Order Comment: Order Date: 02/16/24 Order Info: 0184-1 - CBCD Performed By: #### L 100.0100, [id number] #### [facility] [address] [place], [address] Hematocrit (Bld) [Volume fraction] 42.8 % Normal 37-47 [facility] Comment on above: Order Comment: Order Date: 02/16/24 Order Info: 0184-1 - CBCD Performed By: #### L 100.0100, [id number] #### [facility] [address] [place], [address] Hemoglobin (Bld) [Mass/Vol] 13.4 g/dL Normal 12.0-15.0 [facility] Comment on above: Order Comment: Order Date: 02/16/24 Order Info: 0184- - CBCD Performed By: #### L 100.0100, [id number] #### [facility] [address] [place], [address] IG% 0.500 Normal 0.0-0.9 [facility] Comment on above: Order Comment: Order Date: 02/16/24 Order Info: 018- - CBCD Result Comment: IG% - Immature Granulocytes (promyelocytes, myelocytes and metamyelocytes) > 1% indicates that a LEFT SHIFT is Present. Performed By: #### L 100.0100, L503.6150 #### [facility] [address] [place], [address] Lymphocytes/100 WBC (Bld) 30.5 % Normal 19-41 [facility] Comment on above: Order Comment: Order Date: 02/16/24 Order Info: 018- - CBCD Performed By: #### L 100.0100, [id number] #### [facility] [address] [place], [address] MCH (RBC) [Entitic mass] 28.3 pg Normal 27.0-32.0 [facility] Comment on above: Order Comment: Order Date: 02/16/24 Order Info: 0184- - CBCD Performed By: #### L 100.0100, [id number] #### [facility] [address] [place], [address] MCHC (RBC) [Mass/Vol] 31.3 g/dL Low 32-36 [facility] Comment on above: Order Comment: Order Date: 02/16/24 Order Info: 0184- - CBCD Performed By: #### L 100.0100, [id number] #### [facility] [address] [place], [address] MCV (RBC) [Entitic vol] 90.5 fL Normal 81-99 [facility] Comment on above: Order Comment: Order Date: 02/16/24 Order Info: 0184-1 - CBCD Performed By: #### L 100.0100, [id number] #### [facility] [address] [place], [address] Monocytes/100 WBC (Bld) 9.5 % Normal 0-10 [facility] Comment on above: Order Comment: Order Date: 02/16/24 Order Info: 018-1 - CBCD Performed By: #### L 100.0100, L5.6150 #### [facility] [address] [place], [address] Neutrophils/100 WBC (Bld) 56.8 % Normal 47-70 [facility] Comment on above: Order Comment: Order Date: 02/16/24 Order Info: 018- - CBCD Performed By: #### L 100.0100, [id number] #### [facility] [address] [place], [address] Nucleated RBC (Bld) [#/Vol] 0 10*3/uL Normal 0-5 [facility] Comment on above: Order Comment: Order Date: 02/16/24 Order Info: 0184-1 - CBCD Performed By: #### L 100.0100, [id number] #### [facility] [address] [place], [address] Platelet mean volume (Bld) [Entitic vol] 11.0 fL Normal 6.2-12.0 [facility] Comment on above: Order Comment: Order Date: 02/16/24 Order Info: 0184-1 - CBCD Performed By: #### L 100.0100, [id number] #### [facility] [address] [place], [address] Platelets (Bld) [#/Vol] 316 10*3/uL Normal 150-450 [facility] Comment on above: Order Comment: Order Date: 02/16/24 Order Info: 018-1 - CBCD Performed By: #### L 100.0100, [id number] #### [facility] [address] [place], [address] RBC (Bld) [#/Vol] 4.73 10*6/uL Normal 4.2-5.4 [facility] Comment on above: Order Comment: Order Date: 02/16/24 Order Info: 018- - CBCD Performed By: #### L 100.0100, [id number] #### [facility] [address] [place], [address] RDW SD 50.5 fl High 35.1-43.9 [facility] Comment on above: Order Comment: Order Date: 02/16/24 Order Info: 0184- - CBCD Performed By: #### L 100.0100, [id number] #### [facility] [address] [place], [address] WBC (Bld) [#/Vol] 5.9 10*3/uL Normal 4.4-11.0 [facility] Comment on above: Order Comment: Order Date: 02/16/24 Order Info: 0184- - CBCD Performed By: #### L 100.0100, [id number] #### [facility] [address] [place], [address] Ironon 02-16-2024 Iron [Mass/Vol] 77 ug/dL Normal 50-170 [facility] Comment on above: Order Comment: Order Date: 02/16/24 Order Info: [id number] - LIPID Order Info: [id number] - FE Performed By: #### L 100.0100, [id number] #### [facility] [address] [place], [address] Absolute lymphocyte countOrd ered By: Dr. Geronimo on 11-27-2022 Lymphocytes Auto (Unsp spec) [#/Vol] 2.02 10*3/uL 0.83-4.51 [facility] Basophil percentageOrdered B y: Dr. Geronimo on 11-27-2022 Basophils/100 WBC (Bld) 0.5 % 0-1 [facility] Eosinophils/100 WBC (Bld) 2.4 % 0-5 [facility] Neutrophils (Bld) [#/Vol] 4.9 10*3/uL 2.0-7.7 [facility] Neutrophils/100 WBC (Bld) 62.1 % 47-70 [facility] WBC (Bld) [#/Vol] 7.8 10*3/uL 4.4-11.0 [facility] Blood erythrocytes count (nu mber/volume)Ordered By: Dr. Geronimo on 11-27-2022 RBC (Bld) [#/Vol] 4.30 10*6/uL 4.2-5.4 [facility] Blood hemoglobin measurement (mass/volume)Ordered By: Dr. Geronimo on 11-27-2022 Hemoglobin (Bld) [Mass/Vol] 10.0 g/dL 12.0-15.0 [facility] Blood lymphocytes/100 leukoc ytesOrdered By: Dr. Geronimo on 11-27-2022 Lymphocytes/100 WBC (Bld) 25.9 % 19-41 [facility] Blood monocytes/100 leukocyt esOrdered By: Dr. Geronimo on 11-27-2022 Monocytes/100 WBC (Bld) 8.8 % 0-10 [facility] Blood platelet adequacy dete ction by light microscopyOrdered By: Dr. Geronimo on 11-27-2022 Platelets LM Ql (Bld) ADEQUATE ADEQ [facility] Blood platelet mean volumeOr dered By: Dr. Geronimo on 11-27-2022 Platelet mean volume (Bld) [Entitic vol] 9.7 fL 6.2-12.0 [facility] Determination of erythrocyte mean corpuscular volume (MCV)Ordered By: Dr. Geronimo on 11-27-2022 MCV (RBC) [Entitic vol] 79.8 fL 81-99 [facility] Hematocrit Auto (Bld) [Volum e fraction]Ordered By: Dr. Geronimo on 11-27-2022 Hematocrit (Bld) [Volume fraction] 34.3 % 37-47 [facility] Hypochromatic red blood cell detectionOrdered By: Dr. Geronimo on 11-27-2022 Hypochromia Ql (Bld) RARE [facility] - Hematology and Cell countsOrdered By: Dr. Geronimo on 11-27-2022 Anisocytosis Ql (Bld) 1+ [facility] Erythrocyte distribution width (RBC) [Entitic vol] 80.7 fL 35.1-43.9 [facility] Erythrocyte distribution width (RBC) [Ratio] 28.3 % 11.6-14.6 [facility] Immature granulocytes/100 WBC (Bld) 0.300 % 0.0-0.9 [facility] Comment on above: IG% - Immature Granu locytes (promyelocytes, myelocytes and metamyelocytes) > 1% indicates that a LEFT SHIFT is Present. MCH (RBC) [Entitic mass] 23.3 pg 27.0-32.0 [facility] Nucleated RBC/100 WBC (Bld) [Ratio] 0 % 0-5 [facility] MCHC Auto (RBC) [Mass/Vol]Or dered By: Dr. Geronimo on 11-27-2022 MCHC (RBC) [Mass/Vol] 29.2 g/dL 32-36 [facility] Ovalocyte detectionOrdered B y: Dr. Geronimo on 11-27-2022 Ovalocytes LM Ql (Bld) [facility] Platelets bldOrdered By: Dr. Geronimo on 11-27-2022 Platelets (Bld) [#/Vol] 383 10*3/uL 150-450 [facility] RBC morphologyOrdered By: Dr Jefe Geronimo on 11-27-2022 RBC morphology finding Nom (Bld) N CHROM NORMAL NORM C&C [facility] Thin prep Papanicolaou smear with manual screeningOrdered By: Dr. Geronimo on 11-27-2022 Thin prep Papanicolaou smear with manual screening 1+ [facility] Absolute lymphocyte countOrd ered By: Dr. Rose on 11-19-2022 Lymphocytes Auto (Unsp spec) [#/Vol] 1.22 10*3/uL 0.83-4.51 [facility] Basophil percentageOrdered B y: Dr. Rose on 11-19-2022 Basophil percentage 4.0 mg/dL 2.5-4.9 [facility] Basophils/100 WBC (Bld) 0.5 % 0-1 [facility] Bilirubin [Mass/Vol] 0.20 mg/dL 0.20-1.00 [facility] Comment on above: For patients on eltr ombopag therapy, use of Dimension [place] TBIL is not recommended. Chloride [Moles/Vol] 109 mmol/L 98-107 [facility] Eosinophils/100 WBC (Bld) 2.3 % 0-5 [facility] Glucose [Mass/Vol] 110 mg/dL 74-106 [facility] Comment on above: Fasting Glucose resu lt from 100 to 125 mg/dL suggests IMPAIRED HOMEOSTASIS per A.D.A. criteria. Neutrophils (Bld) [#/Vol] 5.8 10*3/uL 2.0-7.7 [facility] Neutrophils/100 WBC (Bld) 70.5 % 47-70 [facility] Potassium [Moles/Vol] 3.8 mmol/L 3.5-5.1 [facility] Protein [Mass/Vol] 7.3 g/dL 6.4-8.2 [facility] Sodium [Moles/Vol] 139 mmol/L 136-145 [facility] WBC (Bld) [#/Vol] 8.2 10*3/uL 4.4-11.0 [facility] Blood erythrocytes count (nu mber/volume)Ordered By: Dr. Rose on 11-19-2022 RBC (Bld) [#/Vol] 3.28 10*6/uL 4.2-5.4 [facility] Blood hemoglobin measurement (mass/volume)Ordered By: Dr. Newton on 11-19-2022 Hemoglobin (Bld) [Mass/Vol] 7.4 g/dL 12.0-15.0 [facility] Blood lymphocytes/100 leukoc ytesOrdered By: Dr. Rose on 11-19-2022 Lymphocytes/100 WBC (Bld) 14.9 % 19-41 [facility] Blood monocytes/100 leukocyt esOrdered By: [address] Rose on 11-19-2022 Monocytes/100 WBC (Bld) 11.4 % 0-10 [facility] Blood platelet mean volumeOr dered By: Dr. Rose on 11-19-2022 Platelet mean volume (Bld) [Entitic vol] 9.0 fL 6.2-12.0 [facility] Determination of erythrocyte mean corpuscular volume (MCV)Ordered By: Dr. Rose on 11-19-2022 MCV (RBC) [Entitic vol] 71.6 fL 81-99 [facility] Hematocrit Auto (Bld) [Volum e fraction]Ordered By: Dr. Newton on 11-19-2022 Hematocrit (Bld) [Volume fraction] 26.4 % 37-47 [facility] - Chemistry and C hemistry - challengeOrdered By: Dr. Rose on 11-19-2022 ALP [Catalytic activity/Vol] 82 U/L 45-117 [facility] ALT [Catalytic activity/Vol] 16 U/L 13-56 [facility] CO2 [Moles/Vol] 26.0 mmol/L 21.0-32.0 [facility] Globulin (S) [Mass/Vol] 3.9 g/dL 2.2-4.2 [facility] Magnesium [Mass/Vol] 2.1 mg/dL 1.6-2.6 [facility] Urea nitrogen/Creatinine [Mass ratio] 17.2 mg/mg 10-20 [facility] - Hematology and Cell countsOrdered By: Dr. Rose on 11-19-2022 Erythrocyte distribution width (RBC) [Entitic vol] 47.4 fL 35.1-43.9 [facility] Erythrocyte distribution width (RBC) [Ratio] 18.3 % 11.6-14.6 [facility] Immature granulocytes/100 WBC (Bld) 0.400 % 0.0-0.9 [facility] Comment on above: IG% - Immature Granu locytes (promyelocytes, myelocytes and metamyelocytes) > 1% indicates that a LEFT SHIFT is Present. MCH (RBC) [Entitic mass] 19.8 pg 27.0-32.0 [facility] Nucleated RBC/100 WBC (Bld) [Ratio] 0 % 0-5 [facility] MCHC Auto (RBC) [Mass/Vol]Or dered By: Dr. Rose on 11-19-2022 MCHC (RBC) [Mass/Vol] 27.7 g/dL 32-36 [facility] No Panel InformationOrdered By: Dr. Rose on 11-19-2022 Estimated Creatinine Clearance Calc 42.91 ml/min [facility] Estimated GFR (MDRD) Amer 115 mL/min >60 [facility] Comment on above: GFR Calc Estimated GFR (MDRD) Non-Af Amer 95 mL/min >60 [facility] Comment on above: Non- GFR Calc Platelets bldOrdered By: Dr. Rose on 11-19-2022 Platelets (Bld) [#/Vol] 355 10*3/uL 150-450 [facility] Serum or plasma albumin snow urement (mass/volume)Ordered By: Dr. Rose on 11-19-2022 Albumin [Mass/Vol] 3.4 g/dL 3.2-5.0 [facility] Serum or plasma albumin/glob ulin mass ratioOrdered By: Dr. Rose on 11-19-2022 Albumin/Globulin [Mass ratio] 0.9 {ratio} 0.9-2.4 [facility] Serum or plasma calcium snow urement (mass/volume)Ordered By: Dr. Rose on 11-19-2022 Calcium [Mass/Vol] 8.8 mg/dL 8.5-10.1 [facility] Serum or plasma creatinine m easurement (mass/volume)Ordered By: Dr. Rose on 11-19-2022 Creatinine [Mass/Vol] 0.64 mg/dL 0.55-1.02 [facility] Comment on above: The validity of the calculated GFR & GFRAA in patients over 70 years has not been determined. Clinical correlation is essential. Serum or plasma urea nitroge n measurement (mass/volume)Ordered By: Dr. Rose on 11-19-2022 Urea nitrogen [Mass/Vol] 11 mg/dL 7-18 [facility] Thin prep Papanicolaou smear with manual screeningOrdered By: Dr. Rose on 11-19-2022 Thin prep Papanicolaou smear with manual screening 14 U/L 15-37 [facility] Thin prep Papanicolaou smear with manual screening 4 5-15 [facility] Absolute lymphocyte countOrd ered By: ED PROVIDER on 11-18-2022 Lymphocytes Auto (Unsp spec) [#/Vol] 1.90 10*3/uL 0.83-4.51 [facility] Absolute lymphocyte countOrd ered By: Dr. Geronimo on 11-18-2022 Lymphocytes Auto (Unsp spec) [#/Vol] 1.51 10*3/uL 0.83-4.51 [facility] Basophil percentageOrdered B y: Dr. Willingham on 11-18-2022 Bilirubin [Mass/Vol] 0.20 mg/dL 0.20-1.00 [facility] Comment on above: For patients on eltr ombopag therapy, use of Dimension [place] TBIL is not recommended. Protein [Mass/Vol] 7.8 g/dL 6.4-8.2 [facility] Basophil percentageOrdered B y: ED PROVIDER on 11-18-2022 Chloride [Moles/Vol] 108 mmol/L 98-107 [facility] Glucose [Mass/Vol] 100 mg/dL 74-106 [facility] Comment on above: Fasting Glucose resu lt from 100 to 125 mg/dL suggests IMPAIRED HOMEOSTASIS per A.D.A. criteria. Potassium [Moles/Vol] 3.9 mmol/L 3.5-5.1 [facility] Sodium [Moles/Vol] 138 mmol/L 136-145 [facility] Basophils/100 WBC (Bld) 0.7 % 0-1 [facility] Eosinophils/100 WBC (Bld) 2.5 % 0-5 [facility] Neutrophils (Bld) [#/Vol] 4.7 10*3/uL 2.0-7.7 [facility] Neutrophils/100 WBC (Bld) 61.0 % 47-70 [facility] WBC (Bld) [#/Vol] 7.7 10*3/uL 4.4-11.0 [facility] Basophil percentageOrdered B y: Dr. Geronimo on 11-18-2022 Basophils/100 WBC (Bld) 0.5 % 0-1 [facility] Bilirubin [Mass/Vol] 0.20 mg/dL 0.20-1.00 [facility] Comment on above: For patients on eltr ombopag therapy, use of [place] TBIL is not recommended. Chloride [Moles/Vol] 107 mmol/L 98-107 [facility] Eosinophils/100 WBC (Bld) 1.8 % 0-5 [facility] Glucose [Mass/Vol] 93 mg/dL 74-106 [facility] Neutrophils (Bld) [#/Vol] 5.1 10*3/uL 2.0-7.7 [facility] Neutrophils/100 WBC (Bld) 66.9 % 47-70 [facility] Potassium [Moles/Vol] 4.3 mmol/L 3.5-5.1 [facility] Protein [Mass/Vol] 7.5 g/dL 6.4-8.2 [facility] Sodium [Moles/Vol] 136 mmol/L 136-145 [facility] WBC (Bld) [#/Vol] 7.7 10*3/uL 4.4-11.0 [facility] Blood erythrocytes count (nu mber/volume)Ordered By: ED PROVIDER on 11-18-2022 RBC (Bld) [#/Vol] 3.24 10*6/uL 4.2-5.4 [facility] Blood erythrocytes count (nu mber/volume)Ordered By: Dr. Geronimo on 11-18-2022 RBC (Bld) [#/Vol] 3.48 10*6/uL 4.2-5.4 [facility] Blood hemoglobin measurement (mass/volume)Ordered By: Dr. Rose on 11-18-2022 Hemoglobin (Bld) [Mass/Vol] 6.9 g/dL 12.0-15.0 [facility] Blood hemoglobin measurement (mass/volume)Ordered By: Dr. Geronimo on 11-18-2022 Hemoglobin (Bld) [Mass/Vol] 6.7 g/dL 12.0-15.0 [facility] Blood lymphocytes/100 leukoc ytesOrdered By: ED PROVIDER on 11-18-2022 Lymphocytes/100 WBC (Bld) 24.8 % 19-41 [facility] Blood lymphocytes/100 leukoc ytesOrdered By: Dr. Geronimo on 11-18-2022 Lymphocytes/100 WBC (Bld) 19.7 % 19-41 [facility] Blood monocytes/100 leukocyt esOrdered By: ED PROVIDER on 11-18-2022 Monocytes/100 WBC (Bld) 10.6 % 0-10 [facility] Blood monocytes/100 leukocyt esOrdered By: Dr. Geronimo on 11-18-2022 Monocytes/100 WBC (Bld) 10.8 % 0-10 [facility] Blood platelet mean volumeOr dered By: ED PROVIDER on 11-18-2022 Platelet mean volume (Bld) [Entitic vol] 10.5 fL 6.2-12.0 [facility] Blood platelet mean volumeOr dered By: Dr. Geronimo on 11-18-2022 Platelet mean volume (Bld) [Entitic vol] 10.3 fL 6.2-12.0 [facility] Determination of erythrocyte mean corpuscular volume (MCV)Ordered By: ED PROVIDER on 11-18-2022 MCV (RBC) [Entitic vol] 72.5 fL 81-99 [facility] Determination of erythrocyte mean corpuscular volume (MCV)Ordered By: Dr. Geronimo on 11-18-2022 MCV (RBC) [Entitic vol] 72.1 fL 81-99 [facility] Direct bilirubinOrdered By: Dr. Willingham on 11-18-2022 Bilirubin.direct [Mass/Vol] 0.06 mg/dL 0.00-0.30 [facility] Erythrocyte sedimentation ra teOrdered By: Dr. Geronimo on 11-18-2022 ESR (Bld) [Velocity] 48 mm/h 0-30 [facility] Hematocrit Auto (Bld) [Volum e fraction]Ordered By: ED PROVIDER on 11-18-2022 Hematocrit (Bld) [Volume fraction] 23.5 % 37-47 [facility] Hematocrit Auto (Bld) [Volum e fraction]Ordered By: Dr. Geronimo on 11-18-2022 Hematocrit (Bld) [Volume fraction] 25.1 % 37-47 [facility] Hemoglobin in reticulocytes (mass per reticulocyte)Ordered By: Dr. Willingham on 11-18-2022 Hemoglobin (Reticulocytes) [Entitic mass] 16.6 pg 30-35 [facility] INR in Blood by Coagulation assayOrdered By: Dr. Willingham on 11-18-2022 INR Coag (Bld) [Relative time] 0.9 {INR} [facility] Iron measurement (mass/mass) Ordered By: Dr. Willingham on 11-18-2022 Iron (Unsp spec) [Mass/Mass] 12 ug/dL 50-170 [facility] - Chemistry and C hemistry - challengeOrdered By: Dr. Willingham on 11-18-2022 ALP [Catalytic activity/Vol] 94 U/L 45-117 [facility] ALT [Catalytic activity/Vol] 19 U/L [facility] Globulin (S) [Mass/Vol] 4.3 g/dL 2.2-4.2 [facility] - Chemistry and C hemistry - challengeOrdered By: ED PROVIDER on 11-18-2022 CO2 [Moles/Vol] 26.0 mmol/L 21.0-32.0 [facility] Urea nitrogen/Creatinine [Mass ratio] 23.6 mg/mg 05-30 [facility] - Chemistry and C hemistry - challengeOrdered By: Dr. Geronimo on 11-18-2022 ALP [Catalytic activity/Vol] 88 U/L 45-117 [facility] ALT [Catalytic activity/Vol] 20 U/L [facility] CO2 [Moles/Vol] 26.0 mmol/L 21.0-32.0 [facility] Globulin (S) [Mass/Vol] 3.9 g/dL 2.2-4.2 [facility] Urea nitrogen/Creatinine [Mass ratio] 18.4 mg/mg 05-30 [facility] - CoagulationOrde red By: Dr. Willingham on 11-18-2022 PT Coag (PPP) [Time] 12.2 s 11.7-14.9 [facility] - Hematology and Cell countsOrdered By: ED PROVIDER on 11-18-2022 Erythrocyte distribution width (RBC) [Entitic vol] 48.6 fL 35.1-43.9 [facility] Erythrocyte distribution width (RBC) [Ratio] 18.5 % 11.6-14.6 [facility] Immature granulocytes/100 WBC (Bld) 0.400 % 0.0-0.9 [facility] Comment on above: IG% - Immature Granu locytes (promyelocytes, myelocytes and metamyelocytes) > 1% indicates that a LEFT SHIFT is Present. MCH (RBC) [Entitic mass] 20.1 pg 27.0-32.0 [facility] Nucleated RBC/100 WBC (Bld) [Ratio] 0.3 % 0-5 [facility] - Hematology and Cell countsOrdered By: Dr. Geronimo on 11-18-2022 Erythrocyte distribution width (RBC) [Entitic vol] 47.9 fL 35.1-43.9 [facility] Erythrocyte distribution width (RBC) [Ratio] 18.3 % 11.6-14.6 [facility] Immature granulocytes/100 WBC (Bld) 0.300 % 0.0-0.9 [facility] Comment on above: IG% - Immature Granu locytes (promyelocytes, myelocytes and metamyelocytes) > 1% indicates that a LEFT SHIFT is Present. MCH (RBC) [Entitic mass] 19.3 pg 27.0-32.0 [facility] Nucleated RBC/100 WBC (Bld) [Ratio] 0.4 % [address] MCHC Auto (RBC) [Mass/Vol]Or dered By: ED PROVIDER on 11-18-2022 MCHC (RBC) [Mass/Vol] 27.7 g/dL 32-36 [facility] MCHC Auto (RBC) [Mass/Vol]Or dered By: Dr. Geronimo on 11-18-2022 MCHC (RBC) [Mass/Vol] 26.7 g/dL 32-36 [facility] No Panel InformationOrdered By: Dr. Willingham on 11-18-2022 Immature Reticulocyte Fraction 23.00 % 3.00-15.90 [facility] Reticulocyte Count 2.21 % 0.5-1.5 [facility] Total Iron Binding Capacity 466 ug/dL 250-450 [facility] No Panel InformationOrdered By: ED PROVIDER on 11-18-2022 Estimated Creatinine Clearance Calc 42.91 ml/min [facility] Estimated GFR (MDRD) Amer 107 mL/min >60 [facility] Comment on above: GFR Calc Estimated GFR (MDRD) Non-Af Amer 88 mL/min >60 [facility] Comment on above: Non- GFR Calc No Panel InformationOrdered By: Dr. Geronimo on 11-18-2022 Estimated GFR (MDRD) Amer 102 mL/min >60 [facility] Comment on above: GFR Calc Estimated GFR (MDRD) Non-Af Amer 84 mL/min >60 [facility] Comment on above: Non- GFR Calc Thyroid Stimulating Hormone (TSH) 1.00 uIU/mL 0.358-3.74 [facility] Platelets bldOrdered By: ED PROVIDER on 11-18-2022 Platelets (Bld) [#/Vol] 365 10*3/uL 150-450 [facility] Platelets bldOrdered By: Dr. Geronimo on 11-18-2022 Platelets (Bld) [#/Vol] 408 10*3/uL 150-450 [facility] Serum or plasma albumin snow urement (mass/volume)Ordered By: Dr. Willingham on 11-18-2022 Albumin [Mass/Vol] 3.5 g/dL 3.2-5.0 [facility] Serum or plasma albumin snow urement (mass/volume)Ordered By: Dr. Geronimo on 11-18-2022 Albumin [Mass/Vol] 3.6 g/dL 3.2-5.0 [facility] Serum or plasma albumin/glob ulin mass ratioOrdered By: Dr. Geronimo on 11-18-2022 Albumin/Globulin [Mass ratio] 0.9 {ratio} 0.9-2.4 [facility] Serum or plasma calcium snow urement (mass/volume)Ordered By: ED PROVIDER on 11-18-2022 Calcium [Mass/Vol] 8.8 mg/dL 8.5-10.1 [facility] Serum or plasma calcium snow urement (mass/volume)Ordered By: Dr. Geronimo on 11-18-2022 Calcium [Mass/Vol] 9.0 mg/dL 8.5-10.1 [facility] Serum or plasma creatinine m easurement (mass/volume)Ordered By: ED PROVIDER on 11-18-2022 Creatinine [Mass/Vol] 0.68 mg/dL 0.55-1.02 [facility] Comment on above: The validity of the calculated GFR & GFRAA in patients over 70 years has not been determined. Clinical correlation is essential. Serum or plasma creatinine m easurement (mass/volume)Ordered By: Dr. Geronimo on 11-18-2022 Creatinine [Mass/Vol] 0.71 mg/dL 0.55-1.02 [facility] Comment on above: The validity of the calculated GFR & GFRAA in patients over 70 years has not been determined. Clinical correlation is essential. Serum or plasma ferritin ifrah surement (mass/volume)Ordered By: Dr. Willingham on 11-18-2022 Ferritin [Mass/Vol] 4 ng/mL 8 [facility] Serum or plasma iron saturat ion measurement (mass fraction)Ordered By: Dr. Willingham on 11-18-2022 Iron saturation [Mass fraction] 2.6 % 15.0-55.0 [facility] Serum or plasma urea nitroge n measurement (mass/volume)Ordered By: ED PROVIDER on 11-18-2022 Urea nitrogen [Mass/Vol] 16 mg/dL 02-25 [facility] Serum or plasma urea nitroge n measurement (mass/volume)Ordered By: Dr. Geronimo on 11-18-2022 Urea nitrogen [Mass/Vol] 13 mg/dL 02-25 [facility] Stool gastrointestinal hemog lobin detection by immunologic methodOrdered By: Dr. Willingham on 11-18-2022 Lower GI hemoglobin IA Ql (Stl) [facility] Thin prep Papanicolaou smear with manual screeningOrdered By: Dr. Willingham on 11-18-2022 Thin prep Papanicolaou smear with manual screening 17 U/L 15 [facility] Thin prep Papanicolaou smear with manual screeningOrdered By: ED PROVIDER on 11-18-2022 Thin prep Papanicolaou smear with manual screening 4 5-15 [facility] Thin prep Papanicolaou smear with manual screeningOrdered By: Dr. Geronimo on 11-18-2022 Thin prep Papanicolaou smear with manual screening 19 U/L 15- [facility] Thin prep Papanicolaou smear with manual screening 3 5-15 [facility] ANES Thiago 09-07-2018 ANES POST HNO ID: [id number] Author: Abdi Cruz I Service: Anesthesiology Author [...] Remarks: SIGNATURE: Abdi Cruz MD PATIENT NAME: Trcaie Chan DATE: September 07, 2018 TIME: 2:24 [...] DATE: September 07, 2018 TIME: 2:24 PM [facility] ANES PREOPon 09-07-2018 ANES PREOP HNO ID: [id number] Author: Abdi Cruz I Service: Anesthesiology Author [...] 08/18/2018 Added automatically from request for surgery [id number] - Spinal stenosis, lumbar region, without neurogenic claudication 08/18/2018 Added automatically from request for surgery [id number] PAST SURGICAL HISTORY Procedure Laterality Date - [...] DATE: September 07, 2018 TIME: 10:02 AM [facility] Confirm Blood Typeon 019 ABO/RH(D) Negative [facility] NURSING PROGon 09-07-2018 Protein mass conc HNO ID: [id number] Author: Vandana BaezRn) MARIELY Nguyen Service: Nursing [...] LEARNING: None PHYSICAL LIMITATIONS AFFECTING LEARNING: None [facility] OPERATIVE NOon 09-07-2018 OPERATIVE NO HNO ID: [id number] Author: Samantha Carolina Service: Neurosurgery Author Type: Physician Type: Operative Report Filed: 09/07/2018 1:33 PM Note Text: OPERATIVE/PROCEDURE REPORT LOG ID: [id number] SURGERY/PROCEDURE DATE: 09/07/2018 INCISION/PROCEDURE START TIME: 12:30 PM INCISION CLOSE/PROCEDURE END TIME: SURGEON(S)/PROCEDURA LIST(S) AND FIBERGLASS AUTO BODY REPAIRER(S): Surgeon(s) and Role: * Samantha Carolina - Primary Physician Block Bolter Mule Operator: Nain Haider (Pa) SURGERY/PROCEDURE(S) : Left L4/5 [...] 5 cm length x 26 mm diameter TuneCore tubular? retractor, which was secured to the [...] 07, 2018 TIME: 1:28 PM PAGER/CONTACT #: [facility] PT EDon 09-07-2018 PT ED HNO ID: [id number] Author: Vaishnavi (Rn) MARIELY Ann Service: (none) [...] None Electronically Signed By: Vaishnavi Ann RN [facility] RBC Antibody Interp (Lab Ord ered)on 09-07-2018 Antibody Interp (NOTE) [facility] Comment on above: Result Comment: Anti [...] compatibility testing. Performed By: #### A BINTB ####[place] [id number] [place], [place] [phone] Physician Review Signed by Kaylah Rodriguez MD ([id number]) [facility] Comment on above: Performed By: #### A BINTB ####[place] [address], [place] [phone] Type and Screenon 09-07-2018 ABO/RH(D) Negative [facility] Antibody Identified ANTIBODY REACTIVITY, No Apparent Specificity. Normal [facility] XR LUMBAR 1Von 09-07-2018 XR LUMBAR [...] 07 2018 1:37PM EST [id number] CN Normal [facility] NURSING PROGon 09-02-2018 Protein mass conc HNO ID: [id number] Author: Amanda Dela Cruz) MARIELY Siddiqi Service: [...] Siddiqi RN September 02, 2018 3:45 PM [facility] HOSPon 08-18-2018 HOSP Patient:Beverly Chan MRN: [...] notes entered within the past 30 days [facility] Otheron 06-25-2018 Outside Imaging Study for Support of Clinical Care This study was sent from an outside facility to [facility] for support of clinical care of the patient within the [facility] system. Invalid Interpretation Code [facility] Work Phone: Outside Imaging Study for Support of Clinical Care This study was sent from an outside facility to [facility] for support of clinical care of the patient within the [facility] system. Invalid Interpretation Code [facility] Work Phone: Vital Signs Date Time Vital Sign Value Performing Clinician Devan cabrales 11-19-2022 19:28-0400 Body temperature 98.1 [degF] Dr. Kiara Geronimo Work Phone: [facility] 11-19-2022 19:28-0400 Diastolic blood pressure 69 mm[Hg] Dr. Kiara Geronimo Work Phone: [facility] 11-19-2022 19:28-0400 Heart rate 100 /min Dr. Kiara Geronimo Work Phone: [facility] 11-19-2022 19:28-0400 Respiratory rate 18 /min Dr. Kiara Geronimo Work Phone: [facility] 11-19-2022 19:28-0400 SaO2% (BldA) [Mass fraction] 99 % Dr. Kiara Geronimo Work Phone: [facility] 11-19-2022 19:28-0400 Systolic blood pressure 151 mm[Hg] Dr. Kiara Geronimo Work Phone: [phone] [place] [address] 11-19-2022 12:02-0400 Body mass index (BMI) [Ratio] 22.8 kg/m2 Dr. Kiara Geronimo Work Phone: [phone])605-972020 [place] [address] 11-19-2022 12:02-0400 Body weight 66.[address] Kiara Geronimo Work Phone: [phone] [place] [address] 11-18-2022 22:47-0400 Body height 170.[address] Kiara Geronimo Work Phone: 7(111)670-767520 [place] [address] 11-18-2022 22:47-0400 Body mass index (BMI) [Ratio] 22.4 kg/m2 Dr. Kiara Geronimo Work Phone: 1(757)224-665720 [place] [address] 11-18-2022 22:47-0400 Body weight 64.[address] Kiara Geronimo Work Phone: [facility] 11-18-2022 22:02-0400 Body temperature 98.6 [degF] Dr. Kiara Geronimo Work Phone: [facility] 11-18-2022 22:02-0400 Diastolic blood pressure 70 mm[Hg] Dr. Kiara Geronimo Work Phone: [facility] 11-18-2022 22:02-0400 Heart rate 87 /min Dr. Kiara Geronimo Work Phone: [facility] 11-18-2022 22:02-0400 Respiratory rate 18 /min Dr. Kiara Geronimo Work Phone: [facility] 11-18-2022 22:02-0400 SaO2% (BldA) [Mass fraction] 98 % Dr. Kiara Geronimo Work Phone: [facility] 11-18-2022 22:02-0400 Systolic blood pressure 136 mm[Hg] Dr. Kiara Geronimo Work Phone: [facility] Encounters Encounter Date Encounter Type Care Provider Facility Start: 02-16-2024 End: 02-16-2024 ambulatory Kiara Geronimo Facility:[facility] Start: 11-27-2022 End: 11-27-[address] Kiara Geronimo Work Phone: [facility] Work Phone: Start: 11-27-2022 End: 11-27-[address] Kiara Geronimo Work Phone: [facility] Start: 11-19-2022 Non-patient / Non-visit Dr. Kiara Geronimo Work Phone: [facility] Start: 11-19-2022 Non-patient / Non-visit Dr. Kiara Geronimo Work Phone: [facility] Start: 11-19-2022 End: 11-19-2022 Non-patient / Non-visit Dr. Kiara Geronimo Work Phone: [facility] Start: 11-18-2022 Non-patient / Non-visit Dr. Kiara Geronimo Work Phone: [facility] Start: 11-18-2022 End: 11-19-2022 Evaluation and management of inpatient Dr. Kiara Geronimo Work Phone: [facility] 3 Start: 11-18-2022 End: 11-18-[address] Kiara Geronimo [facility] Phone[facility] Start: 02-27-2022 End: 02-27-2022 Patient encounter procedure [facility] Start: 02-08-2022 End: 02-08-2022 Patient encounter procedure [facility]Radiology, [place] Start: 09-07-2018 End: 09-07-2018 Patient encounter procedure SAMANTHA Hill [facility] Start: 08-25-2018 Evaluation and management of inpatient ANGELINE DILL [facility] Start: 08-13-2018 End: 08-13-2018 Patient encounter procedure [facility] Start: 06-25-2018 End: 06-25-2018 Patient encounter Angeline iDll Work Phone: [facility] [place] Start: 12-30-2017 Patient encounter procedure ANGELINE DILL [facility] Start: 12-30-2017 End: 12-30-2017 Patient encounter procedure Angeline Dill Work Phone: [facility] Start: 09-17-2017 Patient encounter procedure ANGELINE DILL [facility] Start: 09-17-2017 End: 09-17-2017 Patient [...] Activity Detail Author Start: 11-19-2022 Patient discharge [facility] Start: 11-19-2022 Catheterization of vein [facility] Start: 11-19-2022 [facility] Start: 11-18-2022 Administration of bl ood product [facility] Start: 11-18-2022 Assessment of risk o f venous thromboembolism [facility] Start: 11-18-2022 Documentation procedure [facility] Start: 11-18-2022 Incentive spirometry [facility] Start: 11-18-2022 Insertion of cathete r into peripheral vein [facility] Start: 11-18-2022 Oxygen therapy [facility] Start: 11-18-2022 Providing care accor ding to standard [facility] Start: 11-18-2022 Referral to gastroenterology service [facility] Start: 11-18-2022 Referral to service [facility] Start: 11-18-2022 [facility] Start: 11-18-2022 Following clinical p athway protocol [facility] Start: 11-18-2022 Verification routine [facility] Start: 11-18-2022 Admission procedure [facility] Start: 11-18-2022 Leukocyte reduced re d blood cells [facility] Start: 08-25-2018 Ambulatory 08/25/2018 [facility] Start: 08-25-2018 Inpatient Encounter 08/25/2018 Hospital Encounter Mult[facility] Angeline Dill MD [address] [place] [phone] Spinal stenosis of lumbar region [facility] Comment on above: Spinal stenosis of l umbar region Start: 04-11-2018 Influenza vaccination INFLUENZA VACC INE (#1) [facility] Work Phone: Start: 2006 Pneumococcal vaccination PNEUM OCOCCAL VACCINE SERIES (1 of 2 - PCV13) [facility] Work Phone: Start: 10-24-1991 Colonoscopy COLON CANCER S CREENING DISCUSSION [facility] Work Phone: Start: 10-24-1991 Protein mass conc COLON CANCER SCREENING DISCUSSION [facility] Work Phone: Start: 1981 Protein mass conc MAMMOGRAM SC REENING DISCUSSION [facility] Work Phone: Start: 1981 Screening mammography MAMMOGRA M SCREENING DISCUSSION [facility] Work Phone: Start: 1962 Screening for malign ant neoplasm of cervix PAP SMEAR DISCUSSION [facility] Work Phone: Start: 1960 Third diphtheria, te tanus and acellular pertussis (DTaP) vaccination TDAP (ADULT) [facility] Work Phone: Start: 10-24-1959 Tetanus vaccination TETANUS Sci [facility] Work Phone: Start: 1941 Screening for osteoporosis DEXA SCAN DISCUSSION [facility] Work Phone: Hemoglobin [Mass/vol ume] in Blood [facility] Patient referral [facility] Work Phone: Payers Date Payer Category Payer Self-pay [id number] 2024 Unknown [id number] 2016 Unknown [id number] 2006 Medicare [id number] Unknown [id number] Social History Date Type Detail Facility Tobacco smoking status NHIS Unknown if ever smoked [facility] Work Phone: Sex Assigned At Not on file [facility] Work Phone: Start: 06-06-2021 End: 11-18-2022 Tobacco smoking status NHIS Unknown if ever smoked [facility] Start: 1940 Sex Assigned At Female [facility] NEGATED: Highlighted row [facility] Goals Date Patient Goal Desired Activity /State Functional Status Date Assessment Result Facility 11-19-2022 Functional status Ambulates [facility] Work Phone: Mental Status Date Assessment Result Facility 11-19-2022 Cognitive function Voice/Name [facility] Work Phone: 11-18-2022 Cognitive function Level Of Cons ciousness Awake;Alert;Appropriate;Follow s Commands [facility] Work Phone: Clinical Notes 11-18-2022 to 11-19-2022 Note Date & Type Note Facility 11-19-2022 Progress note Note Date/Time November 19, 2022 7:35am [facility] Medical Records Department [address] [place] [address] Progress Note - Hospitalist 11/19/22 0730 MR#: [id number] Acct: [id number] Name: TRACIE CHAN Ida Rep #:[id number] : 1940 82 From: Dylon Spicer PCP: Dr. Kiara Geronimo MD Status:ADM IN Location: [place] [address] Reason for Visit Reason for Visit: Diagnoses [...] % (Auto) 61.0, Lymph % (Auto) 24.8, Harding % (Auto) 10.6 H, Eos % (Auto) [...] (Auto) 70.5 H, Lymph % (Auto)14.9 L, Harding % (Auto) 11.4 H, Eos % (Auto) 2.3, Baso % (Auto) 0.5, Absolute Neuts (auto) 5.8, Absolute Lymphs (auto) 1.22, Nucleated RBC % 0 11/19/22 03:39: Sodium 139, Potassium 3.8, Chloride 109 H, Carbon Dioxide 26.0, Anion Gap 4 L, BUN 11, Creatinine 0.64, Estim Creat Clear Calc 42.91, Est GFR (MDRD) Af Amer 115, Est GFR (MDRD) Non-Af 95, BUN/Creatinine Ratio 17.2, [id number] H, Calcium 8.8, Phosphorus 4.0, Magnesium 2.1, [...] % (Auto) 61.0, Lymph % (Auto) 24.8, Harding % (Auto) 10.6 H, Eos % (Auto) [...] (Auto) 70.5 H, Lymph % (Auto)14.9 L, Harding % (Auto) 11.4 H, Eos % (Auto) 2.3, Baso % (Auto) 0.5, Absolute Neuts (auto) 5.8, Absolute Lymphs (auto) 1.22, Nucleated RBC % 0 11/19/22 03:39: Sodium 139, Potassium 3.8, Chloride 109 H, Carbon Dioxide 26.0, Anion Gap 4 L, BUN 11, Creatinine 0.64, Estim Creat Clear Calc 42.91, Est GFR (MDRD) Af Amer 115, Est GFR (MDRD) Non-Af 95, BUN/Creatinine Ratio 17.2, [id number] H, Calcium 8.8, Phosphorus 4.0, Magnesium 2.1, Total Bilirubin 0.20, AST 14 L, ALT 16, Alkaline Phosphatase 82, Total Protein 7.3, Albumin 3.4, Globulin 3.9, Albumin/Globulin Ratio 0.9 Charges/Coding Visit Charges Inpatient E&M: 27304 Subs Hosp L2 11/19/22 1703 <Electronically signed by Dylon Newton MD> Cosigner Signature (if applicable): CC: ~ Signed [facility] Work Phone: 1(272) 800-203204-11-2023 Consult note Author Lon Friend [facility] November 19, 2022 1:03pm Note Date/Time November 19, 2022 1:0 3pm [facility] Medical Records Department [address] [place] [address] Consultation - GI 11/18/22 2300 MR#: [id number] Acct: [id number] Name: TRACIE CHAN Ida Rep #:[id number] : 1940 82 From: Lon Navarro DO PCP: Dr. Kiara Geronimo MD Status:ADM IN Location: [place] [id number] HPI Consult Data Date of Consult: 11/18/22 HPI Narrative Reason for Consultation: Anemia HPI Narrative: TRACIE CHAN, is a 82 F who presented from her primary care physician's office to the emergency department at [facility] with abnormal lab values.? Patient has been [...] I was consulted for management of anemia. COUNTS INCLUDE 234 BEDS AT THE [facility] Medical History DDD (degenerative disc disease), lumbar [...] % (Auto) 61.0, Lymph % (Auto) 24.8, Harding % (Auto) 10.6 H, Eos % (Auto) [...] (Auto) 70.5 H, Lymph % (Auto)14.9 L, Harding % (Auto) 11.4 H, Eos % (Auto) 2.3, Baso % (Auto) 0.5, Absolute Neuts (auto) 5.8, Absolute Lymphs (auto) 1.22, Nucleated RBC % 0 11/19/22 03:39: Sodium 139, Potassium 3.8, Chloride 109 H, Carbon Dioxide 26.0, Anion Gap 4 L, BUN 11, Creatinine 0.64, Estim Creat Clear Calc 42.91, Est GFR (MDRD) Af Amer 115, Est GFR (MDRD) Non-Af 95, BUN/Creatinine Ratio 17.2, [id number] H, Calcium 8.8, Phosphorus 4.0, Magnesium 2.1, [...] 6:16 EDT Reading Location ID and State: [facility] / [place] Tel , Service support , Assessment & [...] in a.m. Charges/Coding Visit Charges Inpatient E&M: 49212 Init Hosp L3 11/19/22 1303 <Electronically signed by Lon Navarro DO> Cosigner Signature (if applicable): CC: Dr. Kiara Geronimo MD; Dr. Nahed Rose DO~ Signed [facility] Work Phone: 1(263) 712-665604-11-2023 Procedure [facility] 11-19-2022 Procedure [facility]04-11-2023 Procedure note [facility]04-11-2023 Procedure [facility] 11-19-[address] Willingham [facility] November 18, 2022 10:26pm Note Date/Time November 18, 2022 10: 26pm [facility] Medical Records Department [address] [facility] [place] [address] Emergency Department Summary 11/18/22 MR#: [id number] Acct: [id number] Name: TRACIE CHAN Rep #:[id number] : 1940 82 From: Jose Willingham DO PCP: Dr. Kiara Geronimo MD Status:ADM IN Location: MS3 CR489-5 HPI History of Present Illness Chief Complaint: [...] % (Auto) 61.0 Lymph % (Auto) 24.8 Harding % (Auto) 10.6 H Eos % (Auto) [...] (Auto) Neut % (Auto) Lymph % (Auto) Harding % (Auto) Eos % (Auto) Baso % [...] your Primary Care Provider. Call [facility] ([phone]) or report to the closest Emergency Room. Call 911 if necessary. 11/18/222225 <Electronically signed by Jose Willingham DO> Cosigner Signature (if applicable): CC: Dr. Kiara Geronimo MD ~ Signed [facility] Work Phone: 1(484) 648-284104-11-2023 History and physical note Author Dr. Rose [facility] November 18, 2022 10:21pm Note Date/Time November 18, 2022 9:3 0pm [facility] Medical Records Department [address] [place] [address] H&P Exam - Hospitalist 11/18/222128 MR#: [id number] Acct: [id number] Name: TRACIE CHAN Rep #:[id number] : 1940 82 From: Nahed Rose DO PCP: Dr. Kiara Geronimo MD Status:ADM IN Location: [facility] HG359-1 HPI - General General Date of Admission: 11/18/22 Date of Service: 11/18/22 Chief Complaint: Abn Lab HPI Narrative TRACIE CHAN, is a 82 F who presented from her primary care physician's office to the emergency department at [facility] with abnormal lab values. Patient has been [...] 2.21. Ferritin is 4. Hemoccult was negative. COUNTS INCLUDE 234 BEDS AT THE [facility] Medical History (Updated 11/18/22 @ 22:15 by [...] % (Auto) 61.0, Lymph % (Auto) 24.8, Harding % (Auto) 10.6 H, Eos % (Auto) [...] the patient Charges/Coding Visit Charges Inpatient E&M: 65850 Init Hosp L2 11/18/222220 <Electronically signed by Nahed Rose DO> Cosigner Signature (if applicable): CC: Dr. Kiara Geronimo MD; Dr. Nahed Rose DO~ Signed [facility] Work Phone: 1(224) 798-884104-10-[address] Willingham [facility] November 18, 2022 10:26pm Note Date/Time November 18, 2022 10: 26pm [facility] Medical Records Department [address] [place] [address] Emergency Department Summary 11/18/22 MR#: [id number] Acct: [id number] Name: TRACIE CHAN Rep #:[id number] : 1940 82 From: Jose Willingham DO PCP: Dr. Kiara Geronimo MD Status:ADM IN Location: [place] [address] HPI History of Present Illness Chief Complaint: [...] history of anemia. No fevers, chills, cough. [facility] Medical History DDD (degenerative disc disease), lumbar [...] % (Auto) 61.0 Lymph % (Auto) 24.8 Harding % (Auto) 10.6 H Eos % (Auto) [...] (Auto) Neut % (Auto) Lymph % (Auto) Harding % (Auto) Eos % (Auto) Baso % [...] your Primary Care Provider. Call [facility] ([phone]) or report to the closest Emergency Room. Call 911 if necessary. 11/18/222225 <Electronically signed by Jose Willingham DO> Cosigner Signature (if applicable): CC: Dr. Kiara Geronimo MD ~ Signed [facility] Work Phone: Discharge summary Author Dr. Newtno [facility] November 19, 2022 7:35pm Note Date/Time November 19, 2022 7:2 2pm [facility] Medical Records Department [address] [place] [address] Instructions for Home/Discharge Instructions 11/19/221921 MR#: [id number] Acct: [id number] Name: TRACIE CHAN Rep #:[id number] : [...] MD; Dr. Nahed Rose DO ~ Signed [facility] Work Phone: Evaluation noteNo assessment information available [facility] Work Phone: Evaluation note* Diagnosis Onset Date Resolution Status Acute anemia acute GIB (gastrointestinal bleeding) acute [facility] Work Phone: History and physical note Author Dr. Rose [facility] November 18, 2022 10:21pm Note Date/Time November 18, 2022 9:3 0pm [facility] Medical Records Department [address] [place] [address] H&P Exam - Hospitalist 11/18/222128 MR#: [id number] Acct: [id number] Name: TRACIE CHAN Rep #:[id number] : 1940 82 From: Nahed Rose DO PCP: Dr. Kiara Geornimo MD Status:ADM IN Location: [facility] JV672-2 HPI - General General Date of Admission: 11/18/22 Date of Service: 11/18/22 Chief Complaint: Abn Lab HPI Narrative TRACIE CHAN, is a 82 F who presented from her primary care physician's office to the emergency department at [facility] with abnormal lab values. Patient has been [...] 2.21. Ferritin is 4. Hemoccult was negative. COUNTS INCLUDE 234 BEDS AT THE [facility] Medical History (Updated 11/18/22 @ 22:15 by [...] % (Auto) 61.0, Lymph % (Auto) 24.8, Harding % (Auto) 10.6 H, Eos % (Auto) [...] the patient Charges/Coding Visit Charges Inpatient E&M: 65414 Init Hosp L2 11/18/221 <Electronically signed by Nahed Rose DO> Cosigner Signature (if applicable): CC: Dr. Kiara Geronimo MD; Dr. Nahed Rose DO~ Signed [facility] Work Phone: Summary Purpose Family History No Family History Records Found Relationship Condition Age at Onset Recorded Date/T jie mother Malignant neoplasm Unknown father Malignant neoplasm Unknown sister Malignant neoplasm Unknown Advance Directives No Advanced Directives Records Found Advance Directive Response Recorded Date/ Time Living Will No June 06 5:23pm Power of [employer] No June 06, 2021 5:23pm Advance Directive Response Recorded Date/ Time Living Will No November 18, 2022 10:52pm Power of [employer] No November 18 10:52pm Chief Complaint and [...] section and content) DATE CREATED AUTHOR 07/20/2018 [facility] DATE CREATED AUTHOR AUTHOR'S ORGANIZ ATION 09/29/2018 [facility] DATE CREATED AUTHOR AUTHOR'S ORGANIZ ATION 03/01/2024 [facility] Goals (unrecognized section and content) Goals may [...] BE BASED ON THE PRIMARY CLINICAL RECORDS. [employer] provides no warranty or guarantee of the accuracy or completeness of information in this document.
[2025-03-18 17:50] LABS: Hematocrit 43.6 % (37-47); Hemoglobin 13.7 g/dL (12.0-15.0); Immature Granulocytes Count 0.020 X10^3/uL (0.0-0.0); Mean Corp Hgb Conc 31.4 g/dL (32-36); Mean Corpuscular Volume 90.1 fL (81-99); Mean Platelet Vol. 11.1 fl (6.2-12.0); NRBC Flagged by Analyzer 0 % (0-5); Platelet Count 341 K/mm3 (150-450); RBC Distribution Width CV 16.3 % (11.6-14.6); RBC Distribution Width SD 54.7 fl (35.1-43.9); Red Blood Count 4.84 M/mm3 (4.2-5.4); White Blood Count 6.6 K/mm3 (4.4-11.0)
[2025-03-18 18:19] LABS: Anion Gap 12 (5-15); BUN 16 mg/dL (4-19); BUN/Creat Ratio 20.8 RATIO (10-20); Calcium,Total 9.8 mg/dL (7.6-11.0); Carbon Dioxide 24.5 mmol/L (21.0-32.0); Chloride 101 mmol/L (98-108); Cholesterol 279 mg/dL (<=200); Glucose 89 mg/dL (70-99); Low Density Lipoprotein Calc. 181 mg/dL; Potassium 5.1 mmol/L (3.3-5.1); Triglycerides 164 mg/dL; Very Low Density Lipoprotein 33 mg/dL (5-40); cholesterol:hdl ratio screen 4.26
== END | disposition home or self-care (01) ==
LOC: MFPLAB 14:34
PROVIDERS: PCP Family Medicine; Referring Provider Family Medicine; Visit Provider Family Medicine
DX: Z00.00 Encounter for general adult medical examination without abnormal findings (principal); E61.1 Iron deficiency; F17.200 Nicotine dependence, unspecified, uncomplicated
CPT/HCPCS: 36415; 80048; 80061; 85025